=== PATIENT | female | born 1935 | race Native Hawaiian/Other Pacific Islander ===

== ENCOUNTER 2018-03-05 17:19 | Inpatient (IN) | payer MEDICARE, MEDICAID ==
[2018-03-05] MEDS ORDERED: Sodium Chloride 0.9% 1,000 ML IV ONE ×2 (17:48→19:52)
[2018-03-05 18:35] LABS: BASO % 0.7 % (0.0-2.0); EOS # 0.1 K/uL (0.0-0.7); EOS % 0.9 % (0.0-4.0); LYMPH # 1.5 K/uL (1.0-4.3); LYMPH % 23.2 % (20.0-40.0); MEAN CELL VOLUME 76.4 fL (81.0-99.0); MEAN CORPUSCULAR HEMOGLOBIN 24.3 pg (27.0-31.0); MEAN CORPUSCULAR HGB CONC 31.9 g/dL (33.0-37.0); MEAN PLATELET VOLUME 9.4 fL (7.2-11.7); MONO # 0.6 K/uL (0.0-0.8); MONO % 8.9 % (0.0-10.0); NEUT # 4.3 K/uL (1.8-7.0); NEUT % 66.3 % (50.0-75.0); NRBC % 0.2 % (0.0-2.0); RBC 5.75 Mil/uL (3.80-5.20); RED CELL DISTRIBUTION WIDTH 20.2 % (11.5-14.5); WHITE BLOOD COUNT 6.5 K/uL (4.8-10.8)
--- NOTE | 2018-03-05 18:44 | C.PDOC ---
History Of Present Illness 82-year-old female, presents to the emergency department, sent from half-way with complaints of questionable AMS. Patient is usually non-verbal, and non -ambulatory. As per half-way transfer papers, pt stopped eating yesterday. All other Hx limited due to clinical condition. Time Seen by Provider: 03/05/18 17:39 Chief Complaint (Nursing): Altered Mental Status History/Exam Limitations: Other (half-way papers) Past Medical History Reviewed: Historical Data, Nursing Documentation, Vital Signs Vital Signs: Last Vital Signs Temp 97.5 F L 03/05/18 17:25 Pulse 86 03/05/18 17:25 Resp 20 03/05/18 17:25 BP 115/74 03/05/18 17:25 Pulse Ox 100 03/05/18 18:45 - Medical History PMH: Dementia, HTN, Hyperlipidemia, Seizures Family History: States: No Known Family Hx - Social History Hx Alcohol Use: No Hx Substance Use: No Review Of Systems Review Of Systems: ROS cannot be obtained secondary to pt's inabilty to answer questions. Physical Exam - Physical Exam Appears: Non-toxic, No Acute Distress, Other (eyes open, not responding to command) Skin: Warm, Dry, No Rash Head: Atraumatic Eye(s): bilateral: Normal Inspection Nose: Normal Oral Mucosa: Moist Lips: Normal Appearing Cardiovascular: Rhythm Regular, No Murmur Respiratory: Normal Breath Sounds, No Accessory Muscle Use Gastrointestinal/Abdominal: Bowel Sounds, Soft, No Tenderness, No Distention, No Guarding Extremity: No Pedal Edema, No Swelling Extremity: Bilateral: Atraumatic Neurological/Psych: No Response To Commands ED Course And Treatment - Laboratory Results Result Diagrams: 03/05/18 18:30 03/05/18 18:30 Lab Interpretation: Abnormal (Na 154, Cl 112, BUN 35, Urine WBC 106 with many bacteria) O2 Sat by Pulse Oximetry: 100 - Radiology CXR: Interpreted by Me, Viewed By Me (LLL atelectasis. No infiltrates) Progress Note: Patient was treated with IV Rocephin and saline in the ED. - Physician Consult Information Time Consulting Physician Contacted: 20:22 Physician Contacted: Tyson Chavez Outcome Of Conversation: Patient to be admitted for rehydration and IV antibiotics. Disposition - Disposition Disposition: HOSPITALIZED Disposition Time: 20:23 Condition: FAIR - POA Present On Arrival: None - Clinical Impression Clinical Impression: UTI (urinary tract infection), Dehydration - Scribe Statement The provider has reviewed the documentation as recorded by the Scribe (Nigel Hess) All medical record entries made by the Scribe were at my direction and personally dictated by me. I have reviewed the chart and agree that the record accurately reflects my personal performance of the history, physical exam, medical decision making, and the department course for this patient. I have also personally directed, reviewed, and agree with the discharge instructions and disposition.
[2018-03-05 19:17] LABS: URINE BACTERIA MANY (<OCC); URINE BILIRUBIN 1+ (NEGATIVE); URINE BLOOD 1+ (NEGATIVE); URINE CLARITY Turbid (Clear); URINE COLOR Amber (YELLOW); URINE GLUCOSE (UA) NORMAL (Normal); URINE LEUKOCYTE ESTERASE 2+ Leu/uL (Negative); URINE PROTEIN 2+ mg/dL (NEGATIVE); WBC CLUMPS FEW /hpf
[2018-03-05] MEDS ORDERED: cefTRIAXone IV 1 gm in Dextros 50 ML IVPB ONE (19:36)
[2018-03-05 19:40] LABS: GFR NON-AFRICAN AMERICAN 53
[2018-03-05 19:41] LABS: CALCIUM 9.8 mg/dl (8.6-10.4)
[2018-03-05 19:42] LABS: ALB/GLOB RATIO 0.8 (1.0-2.1); ALBUMIN 3.1 g/dL (3.5-5.0); ALT/SGPT 12 U/L (9-52); AST/SGOT 47 U/L (14-36); BLOOD UREA NITROGEN 35 mg/dL (7-17)
--- NOTE | 2018-03-05 23:06 | CP.PCM.HP ---
History of Present Illness - History of Present Illness History of Present Illness: Chief complaint: Altered mental status HPI: 82-year-old female longterm resident nonverbal. Patient has a history of hypertension, dementia, seizure disorder and hyperlipidemia. Patient was sent from the longterm because of the altered mental status. Patient was not eating well, for almost 3 weeks poor intake noted. Patient was having increasing losing weight. Mild getting more lethargic. I spoke to the attending, at the time he was complaining that because of the poor intake low calorie intake patient is getting more weak, and also losing significant weight and body mass. In the emergency room patient was not answering questions, she was much more lethargic and a poorly responding. Past medical history hypertension the Saturday hyperlipidemia seizure disorder Allergy unknown Personal history noncontributory No mention of smoking noted Family history not not obtainable Review of system: Patient is somewhat lethargic and poorly responding. Vital signs stable. Significant muscle muscle wasting noted On examination: Vital signs temperature 97.3 pulse 86 blood pressure 115/74 saturation 100% chest good air entry regular heart sound nontender abdomen. Patient is having contracted upper and lower eczematous. No sacral decubiti noted. Patient is responding only deep stability. Labs reviewed Elevated sodium level noted, elevated blood urea nitrogen noted Assessment and recognition: 82-year-old female with a history of advanced dementia, contracted, and also poor intake. Now admitted with acute altered mental status, suggested likely secondary to poor intake, poor nourishment. Severe dehydration, with prerenal acidemia. Patient also having significant the protein and small nourishment because of the poor intake. Will continue the current treatment pain GI evaluation for possible PEG tube, IV fluid and will follow the patient. Respect to the family regarding the further management Present on Admission - Present on Admission Any Indicators Present on Admission: No History of DVT/PE: No History of Uncontrolled Diabetes: No Urinary Catheter: No Decubitus Ulcer Present: No Past Patient History - Past Social History Smoking Status: Never Smoked - CARDIAC Hx Hypertension: Yes - NEUROLOGICAL Hx Dementia: Yes Hx Seizures: Yes - HEENT Hx Glaucoma: Yes - MUSCULOSKELETAL/RHEUMATOLOGICAL Hx Falls: Yes Hx Unsteady Gait: Yes (diff walking) - PSYCHIATRIC Hx Substance Use: No Meds Allergies/Adverse Reactions: Allergies Allergy/AdvReac Type Severity Reaction Status Date / Time No Known Allergies Allergy Unverified 03/05/18 17:40 Results - Vital Signs Recent Vital Signs: Last Vital Signs Temp 97.8 F 03/05/18 22:24 Pulse 89 03/05/18 22:24 Resp 18 03/05/18 22:24 BP 131/73 03/05/18 22:24 Pulse Ox 99 03/05/18 22:24 - Labs Result Diagrams: 03/09/18 08:29 03/09/18 08:29 Labs: Laboratory Results - last 24 hr 03/05/18 03/05/18 03/05/18 18:30 18:30 18:30 WBC 6.5 RBC 5.75 H Hgb 14.0 Hct 43.9 MCV 76.4 L MCH 24.3 L MCHC 31.9 L RDW 20.2 H Plt Count 247 MPV 9.4 Neut % (Auto) 66.3 Lymph % (Auto) 23.2 [place] % (Auto) 8.9 Eos % (Auto) 0.9 Baso % (Auto) 0.7 Neut # (Auto) 4.3 Lymph # (Auto) 1.5 [place] # (Auto) 0.6 Eos # (Auto) 0.1 Baso # (Auto) 0.0 Sodium 154 H Potassium 4.0 Chloride 112 H Carbon Dioxide 23 Anion Gap 25 H BUN 35 H Creatinine 1.0 Est GFR ( Amer) > 60 Est GFR (Non-Af Amer) 53 Random Glucose 140 H Calcium 9.8 Total Bilirubin 0.9 AST 47 H ALT 12 Alkaline Phosphatase 87 Total Protein 7.2 Albumin 3.1 L Globulin 4.0 H Albumin/Globulin Ratio 0.8 L Urine Color Jacqueline Urine Clarity Turbid Urine pH 5.0 Ur Specific [place] 1.024 Urine Protein 2+ H Urine Glucose (UA) Normal Urine Ketones Trace Urine Blood 1+ H Urine Nitrate Negative Urine Bilirubin 1+ H Urine Urobilinogen 2.0 H Ur Leukocyte Esterase 2+ H Urine WBC (Auto) 106 H Urine RBC (Auto) 10 H Urine WBC Clumps (Auto) Few H Urine Bacteria Many H
[2018-03-05] MEDS: Dextrose 5%/0.45% NS 1,000 ML IV SCH (23:10)
[2018-03-06 08:58] LABS: BASO # 0.1 K/uL (0.0-0.2); BASO % 0.9 % (0.0-2.0); EOS # 0.3 K/uL (0.0-0.7); EOS % 3.3 % (0.0-4.0); HEMOGLOBIN 12.8 g/dL (11.0-16.0); LYMPH # 1.8 K/uL (1.0-4.3); MEAN CELL VOLUME 76.7 fL (81.0-99.0); MEAN CORPUSCULAR HEMOGLOBIN 24.8 pg (27.0-31.0); MEAN CORPUSCULAR HGB CONC 32.3 g/dL (33.0-37.0); MONO # 0.8 K/uL (0.0-0.8); NEUT # 4.8 K/uL (1.8-7.0); NEUT % 62.8 % (50.0-75.0); NRBC % 0.1 % (0.0-2.0); RBC 5.15 Mil/uL (3.80-5.20); RED CELL DISTRIBUTION WIDTH 20.4 % (11.5-14.5); WHITE BLOOD COUNT 7.6 K/uL (4.8-10.8)
[2018-03-06 09:16] LABS: ALB/GLOB RATIO 0.7 (1.0-2.1); ALBUMIN 2.6 g/dL (3.5-5.0); ALT/SGPT 21 U/L (9-52); AST/SGOT 31 U/L (14-36); BLOOD UREA NITROGEN 32 mg/dL (7-17); GFR NON-AFRICAN AMERICAN > 60
[2018-03-06] MEDS ORDERED: cefTRIAXone IV 1 gm in Dextros 1 GM in Dextrose 5% In Water 50 ML IVPB SCH (10:00)
--- NOTE | 2018-03-06 10:14 | RAD ---
Chest x-ray single frontal view History: Altered mental status. Comparison: None available. Findings: Biapical pleural thickening with upper lobe granulomatous changes. Scattered nodularity in the lung faith. Hyperinflation suggestive for COPD and or emphysematous changes. Left basilar atelectasis. Calcification at the aortic knob. Tortuous aorta. Degenerative in the spine and shoulders. Impression: Biapical pleural thickening with upper lobe granulomatous changes. Scattered nodularity in the lung faith. Hyperinflation suggestive for COPD and or emphysematous changes. Left basilar atelectasis. Calcification at the aortic knob. Tortuous aorta.
--- NOTE | 2018-03-06 12:08 | CP.PCM.CON ---
History of Present Illness - History of Present Illness History of Present Illness: Asked to see pt for poor p.o. intake, dehydration. PMH- HTN Reportedly has poor oral intake x 3 weeks at [place]. Review of Systems - Constitutional Constitutional: Anorexia, Fatigue, Malaise, Weight Loss, Weakness - EENT Eyes: absent: Photophobia Nose/Mouth/Throat: Dysphagia - Cardiovascular Cardiovascular: absent: Chest Pain, Palpitations - Respiratory Respiratory: absent: Cough, Hemoptysis - Gastrointestinal Gastrointestinal: Constipation, Dysphagia. absent: Abdominal Pain, Diarrhea, Hematemesis, Hematochezia, Loose Stools, Melena, Vomiting - Genitourinary Genitourinary: absent: Hematuria - Musculoskeletal Musculoskeletal: Muscle Cramps, Myalgias - Integumentary Integumentary: absent: Pruritus, Jaundice - Neurological Neurological: Confusion, Weakness. absent: Convulsions - Psychiatric Psychiatric: Confusion Past Patient History - Past Medical History & Family History Past Medical History?: Yes - Past Social History Smoking Status: Never Smoked - CARDIAC Hx Cardiac Disorders: Yes Hx Hypertension: Yes - PULMONARY Hx Respiratory Disorders: Yes - NEUROLOGICAL Hx Neurological Disorder: Yes Hx Dementia: Yes Hx Seizures: Yes - HEENT Hx HEENT Problems: Yes Hx Glaucoma: Yes - RENAL Hx Chronic Kidney Disease: No - ENDOCRINE/METABOLIC Hx Endocrine Disorders: No - HEMATOLOGICAL/ONCOLOGICAL Hx Blood Disorders: No - INTEGUMENTARY Hx Dermatological Problems: No - MUSCULOSKELETAL/RHEUMATOLOGICAL Hx Musculoskeletal Disorders: Yes Hx Falls: Yes Hx Unsteady Gait: Yes (diff walking) - GASTROINTESTINAL Hx Gastrointestinal Disorders: No - GENITOURINARY/GYNECOLOGICAL Hx Genitourinary Disorders: No - PSYCHIATRIC Hx Psychophysiologic Disorder: No Hx Substance Use: No - SURGICAL HISTORY Hx Surgeries: No - ANESTHESIA Hx Anesthesia: No Meds Allergies/Adverse Reactions: Allergies Allergy/AdvReac Type Severity Reaction Status Date / Time No Known Allergies Allergy Unverified 03/05/18 17:40 - Medications Medications: Current Medications Famotidine (Pepcid) 20 mg IVP DAILY [facility] Last Admin: 03/06/18 11:19 Dose: 20 mg Heparin Sodium (Porcine) (Heparin) 5,000 units SC Q8 [facility] Last Admin: 03/06/18 05:45 Dose: 5,000 units Dextrose/Sodium Chloride (Dextrose 5%/0.45% Ns 1000 Ml) 1,000 mls @ 75 mls/hr IV .[id number] [facility] Last Admin: 03/05/18 23:10 Dose: 75 mls/hr Ceftriaxone Sodium 1 gm/ (Dextrose) 100 mls @ 50 mls/30 min IVPB DAILY [facility] PRN Reason: Protocol Last Admin: 03/06/18 11:01 Dose: Not Given Potassium Chloride (Potassium Chloride 20 Meq/100 Ml) 20 meq in 100 mls @ 50 mls/hr IVPB Q2 [facility] Stop: 03/06/18 13:59 Last Admin: 03/06/18 10:58 Dose: 50 mls/hr Pneumococcal Polyvalent Vaccine (Pneumovax 23 Vaccine) 0.5 ml IM .ONCE ONE Stop: 03/07/18 10:01 Physical Exam - Constitutional Appears: Non-toxic, Confused, Cachectic - Respiratory Exam Respiratory Exam: Clear to Auscultation Bilateral - Cardiovascular Exam Cardiovascular Exam: RRR - GI/Abdominal Exam GI & Abdominal Exam: Normal Bowel Sounds, Soft. absent: Guarding, Mass, Tenderness - Extremities Exam Extremities exam: Negative for: calf tenderness - Neurological Exam Neurological exam: Alert, Oriented x3 - Psychiatric Exam Psychiatric exam: Flat Affect - Skin Skin Exam: Dry Results - Vital Signs Recent Vital Signs: Last Vital Signs Temp 98.5 F 03/06/18 07:41 Pulse 86 03/06/18 07:41 Resp 20 03/06/18 07:41 BP 103/60 03/06/18 07:41 Pulse Ox 97 03/06/18 07:41 - Labs Result Diagrams: 03/06/18 08:41 03/06/18 08:41 Labs: Laboratory Results - last 24 hr 03/05/18 03/05/18 03/05/18 18:30 18:30 18:30 WBC 6.5 RBC 5.75 H Hgb 14.0 Hct 43.9 MCV 76.4 L MCH 24.3 L MCHC 31.9 L RDW 20.2 H Plt Count 247 MPV 9.4 Neut % (Auto) 66.3 Lymph % (Auto) 23.2 [place] % (Auto) 8.9 Eos % (Auto) 0.9 Baso % (Auto) 0.7 Neut # (Auto) 4.3 Lymph # (Auto) 1.5 [place] # (Auto) 0.6 Eos # (Auto) 0.1 Baso # (Auto) 0.0 APTT Sodium 154 H Potassium 4.0 Chloride 112 H Carbon Dioxide 23 Anion Gap 25 H BUN 35 H Creatinine 1.0 Est GFR ( Amer) > 60 Est GFR (Non-Af Amer) 53 Random Glucose 140 H Calcium 9.8 Phosphorus Magnesium Total Bilirubin 0.9 AST 47 H ALT 12 Alkaline Phosphatase 87 Total Protein 7.2 Albumin 3.1 L Globulin 4.0 H Albumin/Globulin Ratio 0.8 L Urine Color Jacqueline Urine Clarity Turbid Urine pH 5.0 Ur Specific [place] 1.024 Urine Protein 2+ H Urine Glucose (UA) Normal Urine Ketones Trace Urine Blood 1+ H Urine Nitrate Negative Urine Bilirubin 1+ H Urine Urobilinogen 2.0 H Ur Leukocyte Esterase 2+ H Urine WBC (Auto) 106 H Urine RBC (Auto) 10 H Urine WBC Clumps (Auto) Few H Urine Bacteria Many H 03/06/18 03/06/18 03/06/18 08:41 08:41 08:41 WBC 7.6 RBC 5.15 Hgb 12.8 Hct 39.6 MCV 76.7 L MCH 24.8 L MCHC 32.3 L RDW 20.4 H Plt Count 211 MPV 10.0 Neut % (Auto) 62.8 Lymph % (Auto) 23.0 [place] % (Auto) 10.0 Eos % (Auto) 3.3 Baso % (Auto) 0.9 Neut # (Auto) 4.8 Lymph # (Auto) 1.8 [place] # (Auto) 0.8 Eos # (Auto) 0.3 Baso # (Auto) 0.1 APTT 35 H Sodium 154 H Potassium 3.1 L Chloride 114 H Carbon Dioxide 25 Anion Gap 17 BUN 32 H Creatinine 0.8 Est GFR ( Amer) > 60 Est GFR (Non-Af Amer) > 60 Random Glucose 187 H Calcium 9.0 Phosphorus 2.9 Magnesium 1.7 Total Bilirubin 0.5 AST 31 ALT 21 Alkaline Phosphatase 73 Total Protein 6.1 L Albumin 2.6 L Globulin 3.5 Albumin/Globulin Ratio 0.7 L Urine Color Urine Clarity Urine pH Ur Specific [place] Urine Protein Urine Glucose (UA) Urine Ketones Urine Blood Urine Nitrate Urine Bilirubin Urine Urobilinogen Ur Leukocyte Esterase Urine WBC (Auto) Urine RBC (Auto) Urine WBC Clumps (Auto) Urine Bacteria Assessment & Plan (1) Dysphagia Assessment and Plan: May be poor oral intake due to UTI and infection. Rec: sw[place]low speech eval She if appetite improves after UTi treated. Status: Acute (2) HTN (hypertension) Status: Acute (3) Hypernatremia Status: Acute (4) Hypokalemia Status: Acute (5) Dehydration Status: Acute (6) UTI (urinary tract infection) Status: Acute
[2018-03-06] MEDS: Dextrose 5%/0.45% NS 1,000 ML IV SCH (12:59)
[2018-03-07] MEDS: Dextrose 5%/0.45% NS 1,000 ML IV SCH ×3 (05:27→15:15)
[2018-03-07] MEDS ORDERED: Pneumococcal 23-Valent Vaccine IM ONE (10:00)
--- NOTE | 2018-03-07 11:15 | CP.PCM.PN ---
Subjective - Date & Time of Evaluation Date of Evaluation: 03/07/18 Time of Evaluation: 11:12 - Subjective Subjective: F/U poor oral intake Swallow eval appreciated. At risk of aspiration Acute altered PO intake, possibly due to UTI Recommend continued follow up by speech therapy to monitor swallowing ability as UTI is being treated and patient is being hydrated. Objective - Vital Signs/Intake and Output Vital Signs (last 24 hours): Temp Pulse Resp BP Pulse Ox 98.2 F 86 20 111/63 98 03/07/18 07:44 03/07/18 07:44 03/07/18 07:44 03/07/18 07:44 03/07/18 07:44 Intake and Output: 03/07/18 03/07/18 06:59 18:59 Intake Total 625 Balance 625 - Medications Medications: Current Medications Famotidine (Pepcid) 20 mg IVP DAILY [facility] Last Admin: 03/06/18 11:19 Dose: 20 mg Heparin Sodium (Porcine) (Heparin) 5,000 units SC Q8 [facility] Last Admin: 03/07/18 05:26 Dose: 5,000 units Dextrose/Sodium Chloride (Dextrose 5%/0.45% Ns 1000 Ml) 1,000 mls @ 75 mls/hr IV .[id number] [facility] Last Admin: 03/07/18 05:28 Dose: Not Given Ceftriaxone Sodium 1 gm/ (Sodium Chloride) 100 mls @ 50 mls/30 min IVPB Q24H [facility] PRN Reason: Protocol Last Admin: 03/06/18 19:35 Dose: 50 mls/30 min - Labs Labs: 03/06/18 08:41 03/06/18 08:41 APTT 35 SECONDS (21-34) H 03/06/18 08:41 - Constitutional Appears: Chronically Ill - Head Exam Additional comments: bitemporal wasting - Neck Exam Neck Exam: Normal Inspection - Respiratory Exam Respiratory Exam: NORMAL BREATHING PATTERN - Cardiovascular Exam Cardiovascular Exam: REGULAR RHYTHM - GI/Abdominal Exam GI & Abdominal Exam: Soft. absent: Tenderness - Neurological Exam Additional comments: confused, non verbal - Psychiatric Exam Psychiatric exam: Flat Affect Assessment and Plan (1) Dehydration Assessment & Plan: due to poor intake. Monitor for improvement. Swallow eval follow up. May need NG feed or PEG Status: Acute (2) UTI (urinary tract infection) Status: Acute
[2018-03-07 11:45] LABS: BASO % 0.6 % (0.0-2.0); EOS # 0.2 K/uL (0.0-0.7); EOS % 3.7 % (0.0-4.0); HEMOGLOBIN 11.8 g/dL (11.0-16.0); LYMPH # 1.9 K/uL (1.0-4.3); MEAN CELL VOLUME 75.9 fL (81.0-99.0); MEAN CORPUSCULAR HGB CONC 32.9 g/dL (33.0-37.0); MEAN PLATELET VOLUME 10.1 fL (7.2-11.7); MONO # 0.8 K/uL (0.0-0.8); MONO % 12.6 % (0.0-10.0); NEUT # 3.1 K/uL (1.8-7.0); NEUT % 51.1 % (50.0-75.0); NRBC % 0.4 % (0.0-2.0); RBC 4.72 Mil/uL (3.80-5.20); RED CELL DISTRIBUTION WIDTH 19.9 % (11.5-14.5)
[2018-03-07 12:11] LABS: BLOOD UREA NITROGEN 23 mg/dL (7-17); CALCIUM 8.7 mg/dl (8.6-10.4); GFR NON-AFRICAN AMERICAN > 60
[2018-03-08] MEDS: Dextrose 5%/0.45% NS 1,000 ML IV SCH (05:36)
[2018-03-08 08:07] LABS: BLOOD UREA NITROGEN 18 mg/dL (7-17); CALCIUM 8.2 mg/dl (8.6-10.4); GFR NON-AFRICAN AMERICAN > 60
--- NOTE | 2018-03-08 08:57 | CP.PCM.PN ---
Subjective - Date & Time of Evaluation Date of Evaluation: 03/08/18 Time of Evaluation: 08:57 - Subjective Subjective: Patient had a low blood pressure this morning. Now the blood pressure slightly improved. No chest pain no shortness of breath noted. She is not eating by mouth. On IV fluid, Will continue the current treatment, will discuss with the cigar packer and picker for the feeding tube Objective - Vital Signs/Intake and Output Vital Signs (last 24 hours): Temp Pulse Resp BP Pulse Ox 98.3 F 77 20 109/68 98 03/08/18 00:11 03/08/18 00:11 03/08/18 00:11 03/08/18 00:11 03/08/18 00:11 Intake and Output: 03/08/18 03/08/18 06:59 18:59 Intake Total 1160 Balance 1160 - Medications Medications: Current Medications Famotidine (Pepcid) 20 mg IVP DAILY [facility] Last Admin: 03/07/18 11:00 Dose: 20 mg Heparin Sodium (Porcine) (Heparin) 5,000 units SC Q8 [facility] Last Admin: 03/08/18 05:35 Dose: 5,000 units Dextrose/Sodium Chloride (Dextrose 5%/0.45% Ns 1000 Ml) 1,000 mls @ 75 mls/hr IV .[id number] [facility] Last Admin: 03/08/18 05:36 Dose: 75 mls/hr Ceftriaxone Sodium 1 gm/ (Sodium Chloride) 100 mls @ 50 mls/30 min IVPB Q24H [facility] PRN Reason: Protocol Last Admin: 03/07/18 20:00 Dose: 50 mls/30 min - Labs Labs: 03/07/18 11:25 03/08/18 07:29 APTT 35 SECONDS (21-34) H 03/06/18 08:41
--- NOTE | 2018-03-08 09:45 | CP.PCM.PN ---
Subjective - Date & Time of Evaluation Date of Evaluation: 03/08/18 Time of Evaluation: 09:43 - Subjective Subjective: Remians NPO Confused/lethargic Recommend NG feeds and swallow eval Objective - Vital Signs/Intake and Output Vital Signs (last 24 hours): Temp Pulse Resp BP Pulse Ox 98.3 F 77 20 109/68 98 03/08/18 00:11 03/08/18 00:11 03/08/18 00:11 03/08/18 00:11 03/08/18 00:11 Intake and Output: 03/08/18 03/08/18 06:59 18:59 Intake Total 1160 Balance 1160 - Medications Medications: Current Medications Famotidine (Pepcid) 20 mg IVP DAILY [facility] Last Admin: 03/07/18 11:00 Dose: 20 mg Heparin Sodium (Porcine) (Heparin) 5,000 units SC Q8 [facility] Last Admin: 03/08/18 05:35 Dose: 5,000 units Dextrose/Sodium Chloride (Dextrose 5%/0.45% Ns 1000 Ml) 1,000 mls @ 75 mls/hr IV .[id number] [facility] Last Admin: 03/08/18 05:36 Dose: 75 mls/hr Ceftriaxone Sodium 1 gm/ (Sodium Chloride) 100 mls @ 50 mls/30 min IVPB Q24H [facility] PRN Reason: Protocol Last Admin: 03/07/18 20:00 Dose: 50 mls/30 min - Labs Labs: 03/07/18 11:25 03/08/18 07:29 APTT 35 SECONDS (21-34) H 03/06/18 08:41 - Constitutional Appears: Cachectic, Chronically Ill - Respiratory Exam Respiratory Exam: NORMAL BREATHING PATTERN - Cardiovascular Exam Cardiovascular Exam: REGULAR RHYTHM - GI/Abdominal Exam GI & Abdominal Exam: Soft. absent: Tenderness Assessment and Plan (1) Dehydration Assessment & Plan: Recommend NG feeds, swallow eval follow up Consider palliative care consult to assist indecision on appropriateness of PEG Status: Acute (2) UTI (urinary tract infection) Status: Acute
[2018-03-08] MEDS ORDERED: Dextrose 5%/0.9% NS 1,000 ML IV ONE ×2 (17:31→17:32)
[2018-03-08] MEDS: Magnesium Sulfate 1 gm in D5W 1 GM/100 ML BAG IVPB SCH ×2 (17:58→18:52)
[2018-03-09 08:46] LABS: BASO % 0.6 % (0.0-2.0); EOS # 0.3 K/uL (0.0-0.7); EOS % 4.5 % (0.0-4.0); HEMOGLOBIN 13.3 g/dL (11.0-16.0); LYMPH # 1.6 K/uL (1.0-4.3); LYMPH % 27.6 % (20.0-40.0); MEAN CELL VOLUME 76.6 fL (81.0-99.0); MEAN CORPUSCULAR HEMOGLOBIN 24.7 pg (27.0-31.0); MEAN CORPUSCULAR HGB CONC 32.2 g/dL (33.0-37.0); MEAN PLATELET VOLUME 9.8 fL (7.2-11.7); MONO # 0.7 K/uL (0.0-0.8); MONO % 11.6 % (0.0-10.0); NEUT # 3.2 K/uL (1.8-7.0); NEUT % 55.7 % (50.0-75.0); NRBC % 0.4 % (0.0-2.0); RBC 5.38 Mil/uL (3.80-5.20); RED CELL DISTRIBUTION WIDTH 20.5 % (11.5-14.5); WHITE BLOOD COUNT 5.7 K/uL (4.8-10.8)
[2018-03-09 08:56] LABS: ALB/GLOB RATIO 0.7 (1.0-2.1); ALBUMIN 2.3 g/dL (3.5-5.0); ALT/SGPT 25 U/L (9-52); AST/SGOT 44 U/L (14-36); BLOOD UREA NITROGEN 11 mg/dL (7-17); CALCIUM 8.3 mg/dl (8.6-10.4); GFR NON-AFRICAN AMERICAN > 60
--- NOTE | 2018-03-09 16:34 | CP.PCM.PN ---
Subjective - Date & Time of Evaluation Date of Evaluation: 03/09/18 Time of Evaluation: 16:32 - Subjective Subjective: f/u dysphagia Clinically unchanged Await speech/swallow follow up- hopefully will be able to start puree diet. Presently pt remains NPO. Objective - Vital Signs/Intake and Output Vital Signs (last 24 hours): Temp Pulse Resp BP Pulse Ox 97.8 F 90 20 111/71 99 03/09/18 15:00 03/09/18 15:00 03/09/18 15:00 03/09/18 15:00 03/09/18 15:00 Intake and Output: 03/09/18 03/09/18 06:59 18:59 Intake Total 1650 120 Output Total 0 Balance 1650 120 - Medications Medications: Current Medications Famotidine (Pepcid) 20 mg IVP DAILY [facility] Last Admin: 03/09/18 09:23 Dose: 20 mg Heparin Sodium (Porcine) (Heparin) 5,000 units SC Q8 [facility] Last Admin: 03/09/18 13:51 Dose: 5,000 units Ceftriaxone Sodium 1 gm/ (Sodium Chloride) 100 mls @ 50 mls/30 min IVPB Q24H [facility] PRN Reason: Protocol Last Admin: 03/08/18 19:20 Dose: 50 mls/30 min - Labs Labs: 03/09/18 08:29 03/09/18 08:29 APTT 35 SECONDS (21-34) H 03/06/18 08:41 - Constitutional Appears: Chronically Ill - Head Exam Head Exam: NORMOCEPHALIC - Respiratory Exam Respiratory Exam: NORMAL BREATHING PATTERN - Cardiovascular Exam Cardiovascular Exam: REGULAR RHYTHM Assessment and Plan (1) Dehydration Assessment & Plan: f/u swallow eval to determine further course of action regarding diet vs. feeding tube Status: Acute (2) UTI (urinary tract infection) Status: Acute
--- NOTE | 2018-03-09 21:17 | CP.PCM.PN ---
Subjective - Date & Time of Evaluation Date of Evaluation: 03/06/18 Time of Evaluation: 21:17 - Subjective Subjective: Patient is having difficult time in eating. . A swallow study. Seen by GI. Will continue the IV fluid. Discussed with the family regarding the further management. Possibility of PEG tube Objective - Vital Signs/Intake and Output Vital Signs (last 24 hours): Temp Pulse Resp BP Pulse Ox 97.8 F 90 20 111/71 99 03/09/18 15:00 03/09/18 15:00 03/09/18 15:00 03/09/18 15:00 03/09/18 15:00 Intake and Output: 03/09/18 03/10/18 18:59 06:59 Intake Total 120 Balance 120 - Medications Medications: Current Medications Famotidine (Pepcid) 20 mg IVP DAILY [facility] Last Admin: 03/09/18 09:23 Dose: 20 mg Heparin Sodium (Porcine) (Heparin) 5,000 units SC Q8 [facility] Last Admin: 03/09/18 21:06 Dose: 5,000 units - Labs Labs: 03/09/18 08:29 03/09/18 08:29 APTT 35 SECONDS (21-34) H 03/06/18 08:41
--- NOTE | 2018-03-09 21:18 | CP.PCM.PN ---
Subjective - Date & Time of Evaluation Date of Evaluation: 03/07/18 Time of Evaluation: 21:17 - Subjective Subjective: Patient had an episode of low blood pressure. Currently on IV fluid only. Seen by GI. Pending discussed with the family regarding the PEG tube. Will follow-up the patient Objective - Vital Signs/Intake and Output Vital Signs (last 24 hours): Temp Pulse Resp BP Pulse Ox 97.8 F 90 20 111/71 99 03/09/18 15:00 03/09/18 15:00 03/09/18 15:00 03/09/18 15:00 03/09/18 15:00 Intake and Output: 03/09/18 03/10/18 18:59 06:59 Intake Total 120 Balance 120 - Medications Medications: Current Medications Famotidine (Pepcid) 20 mg IVP DAILY [facility] Last Admin: 03/09/18 09:23 Dose: 20 mg Heparin Sodium (Porcine) (Heparin) 5,000 units SC Q8 [facility] Last Admin: 03/09/18 21:06 Dose: 5,000 units - Labs Labs: 03/09/18 08:29 03/09/18 08:29 APTT 35 SECONDS (21-34) H 03/06/18 08:41
--- NOTE | 2018-03-09 21:20 | CP.PCM.PN ---
Subjective - Date & Time of Evaluation Date of Evaluation: 03/09/18 Time of Evaluation: 21:19 - Subjective Subjective: Clinical examination is unremarkable. Patient is still not responding well. With the distal a patient is responding. Not able to open the mouth, unable to feed. Will do the speech and swallowing again tomorrow. May need a PEG tube, will discuss with family Objective - Vital Signs/Intake and Output Vital Signs (last 24 hours): Temp Pulse Resp BP Pulse Ox 97.8 F 90 20 111/71 99 03/09/18 15:00 03/09/18 15:00 03/09/18 15:00 03/09/18 15:00 03/09/18 15:00 Intake and Output: 03/09/18 03/10/18 18:59 06:59 Intake Total 120 Balance 120 - Medications Medications: Current Medications Famotidine (Pepcid) 20 mg IVP DAILY [facility] Last Admin: 03/09/18 09:23 Dose: 20 mg Heparin Sodium (Porcine) (Heparin) 5,000 units SC Q8 [facility] Last Admin: 03/09/18 21:06 Dose: 5,000 units - Labs Labs: 03/09/18 08:29 03/09/18 08:29 APTT 35 SECONDS (21-34) H 03/06/18 08:41
[2018-03-10 14:31] LABS: BLOOD UREA NITROGEN 10 mg/dL (7-17); CALCIUM 7.5 mg/dl (8.6-10.4); GFR NON-AFRICAN AMERICAN > 60
[2018-03-10] MEDS ORDERED: Dextrose 5%/0.9% NS 1,000 ML IV ONE (16:00)
[2018-03-10 17:16] LABS: INR 1.2; PROTHROMBIN TIME 13.5 SECONDS (9.7-12.2)
[2018-03-10] MEDS ORDERED: Phytonadione 10 mg/ml Inj (Adult) SC STA (17:41)
[2018-03-11 09:12] LABS: BLOOD UREA NITROGEN 9 mg/dL (7-17); CALCIUM 8.2 mg/dl (8.6-10.4); GFR NON-AFRICAN AMERICAN > 60
--- NOTE | 2018-03-11 11:23 | CP.PCM.PCO ---
Physician Communication Note - Physician Communication Note Physician Communication Note: Reschedule PEG placement tomorrow, 03/12.Elevated PTT on 03/10. Recheck today
[2018-03-11 14:18] LABS: INR 1.2; PROTHROMBIN TIME 12.9 SECONDS (9.7-12.2)
[2018-03-11] MEDS ORDERED: Dextrose 5%/0.45% NS 1,000 ML IV SCH (16:30)
--- NOTE | 2018-03-11 21:51 | CP.PCM.PN ---
Subjective - Date & Time of Evaluation Date of Evaluation: 03/11/18 Time of Evaluation: 21:51 - Subjective Subjective: Patient peg pending She is feeling okay. More awake. Family at bedside today. Complaining of pain. Tylenol as needed. Tolerating the feeding tomorrow, possibly discharge plan tomorrow Objective - Vital Signs/Intake and Output Vital Signs (last 24 hours): Temp Pulse Resp BP Pulse Ox 97.4 F L 85 20 107/50 L 97 03/11/18 15:40 03/11/18 15:40 03/11/18 15:40 03/11/18 15:40 03/11/18 15:40 - Medications Medications: Current Medications Famotidine (Pepcid) 20 mg IVP DAILY [facility] Last Admin: 03/11/18 09:47 Dose: Not Given Dextrose/Sodium Chloride (Dextrose 5%/0.45% Ns 1000 Ml) 1,000 mls @ 50 mls/hr IV .Q20H [facility] Last Admin: 03/11/18 16:40 Dose: 50 mls/hr - Labs Labs: 03/09/18 08:29 03/11/18 08:39 PT 12.9 SECONDS (9.7-12.2) H 03/11/18 13:52 INR 1.2 03/11/18 13:52 APTT 34 SECONDS (21-34) D 03/11/18 13:52
[2018-03-12 08:07] LABS: INR 1.2; PROTHROMBIN TIME 12.7 SECONDS (9.7-12.2)
[2018-03-12 08:08] LABS: MEAN CELL VOLUME 76.6 fL (81.0-99.0); MEAN CORPUSCULAR HEMOGLOBIN 25.2 pg (27.0-31.0); MEAN CORPUSCULAR HGB CONC 32.9 g/dL (33.0-37.0); MEAN PLATELET VOLUME 10.3 fL (7.2-11.7); RBC 4.31 Mil/uL (3.80-5.20); RED CELL DISTRIBUTION WIDTH 20.6 % (11.5-14.5); WHITE BLOOD COUNT 4.5 K/uL (4.8-10.8)
[2018-03-12 08:11] LABS: HEMOGLOBIN 10.8 g/dL (11.0-16.0)
[2018-03-12 08:19] LABS: ALB/GLOB RATIO 0.6 (1.0-2.1); ALBUMIN 1.8 g/dL (3.5-5.0); ALT/SGPT 37 U/L (9-52); AST/SGOT 54 U/L (14-36); BLOOD UREA NITROGEN 9 mg/dL (7-17); CALCIUM 8.2 mg/dl (8.6-10.4); GFR NON-AFRICAN AMERICAN > 60
[2018-03-12] MEDS: Potassium Chloride 40 MEQ in Dextrose 5%/0.45% NS 1,000 ML IV SCH (10:42)
[2018-03-12 10:49] LABS: EOS # 0.2 K/uL (0.0-0.7); LYMPH # 1.8 K/uL (1.0-4.3); MONO # 0.5 K/uL (0.0-0.8)
[2018-03-12] MEDS ORDERED: Etomidate 20 mg/10ml Inj IV ONE (11:31)
[2018-03-12] MEDS ORDERED: Ciprofloxacin 400mg/200ml D5W 400 MG/200 ML BAG IVPB SCH (13:00)
[2018-03-12] MEDS: Ciprofloxacin 400mg/200ml D5W 400 MG/200 ML BAG IVPB SCH (16:25)
[2018-03-13] MEDS: Ciprofloxacin 400mg/200ml D5W 400 MG/200 ML BAG IVPB SCH ×2 (04:01→16:25)
[2018-03-13 07:14] LABS: HEMOGLOBIN 11.6 g/dL (11.0-16.0); MEAN CELL VOLUME 76.3 fL (81.0-99.0); MEAN CORPUSCULAR HEMOGLOBIN 25.3 pg (27.0-31.0); MEAN CORPUSCULAR HGB CONC 33.2 g/dL (33.0-37.0); MEAN PLATELET VOLUME 9.8 fL (7.2-11.7); RBC 4.56 Mil/uL (3.80-5.20); RED CELL DISTRIBUTION WIDTH 20.2 % (11.5-14.5)
[2018-03-13 07:29] LABS: WHITE BLOOD COUNT 7.4 K/uL (4.8-10.8)
[2018-03-13 07:54] LABS: BLOOD UREA NITROGEN 9 mg/dL (7-17); CALCIUM 8.3 mg/dl (8.6-10.4); GFR NON-AFRICAN AMERICAN > 60
[2018-03-13] MEDS: Potassium Chloride 40 MEQ in Dextrose 5%/0.45% NS 1,000 ML IV SCH (09:01)
[2018-03-13 10:12] LABS: LYMPH # 0.8 K/uL (1.0-4.3); MONO # 0.4 K/uL (0.0-0.8); NEUT # 6.2 K/uL (1.8-7.0)
--- NOTE | 2018-03-13 11:57 | PN ---
DATE: 03/13/2018 LOCATION: 360, bed A. SUBJECTIVE: This is an 82-year-old female post PEG insertion yesterday, tolerating PEG feeding well without reported, so far nausea or vomiting. No reported residual bleeding or . The entire chart is reviewed including, but not limited to most recent lab and radiology study results, current and the previous medication list, current and the previous medical events. Case discussed with the staff at length. Today's lab result showed normal hemoglobin and hematocrit with normal white blood cell with blood glucose level 205, calcium 8.3, albumin reported to be low 1.8 with low total protein. PHYSICAL EXAMINATION: GENERAL: An 82-year-old female. VITAL SIGNS: Afebrile with pulse of 100, respiratory rate 20 to 22, blood pressure 102/60. HEENT: Showed pale, dry oral mucous membrane. Nonicteric sclerae. LUNGS: Few scattered mild crepitation. Decreased air entry at bases. HEART: Positive S1 and S2. ABDOMEN: Soft with slight distention. PEG tube is in place. No evidence of bleeding. No evidence of anterior abdominal wall cellulitis. Wound is clean. Abdominal binder is in place. Bowel sounds are present. No mass or organomegaly. EXTREMITIES: Show slight lower extremity edematous changes. No clubbing or cyanosis. NEUROLOGICAL: No reported new neurological deficits, sensory or motor. IMPRESSION: 1. Failure to thrive. 2. Dysphagia. 3. Malnutrition, hypoalbuminemia. 4. Status post percutaneous endoscopic gastrostomy insertion. SUGGESTION: 1. Agree with your plan. 2. Subsequent increase of feeding process. 3. The patient is to be followed up for GI by Dr. Snider as I was covering for the last two days and the PEG tube was performed as per the request of the admitting MD as well as the family member on Saturday. We will follow up with you only p.r.n. Case to be followed up by Dr. Snider. Derek Chapa MD
--- NOTE | 2018-03-13 13:24 | CP.PCM.PN ---
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 Patient seen today, comfortable , NAD RN reported patient vomited large amount of un digested feeding Labs and vss reviewed a febrile Objective - Vital Signs/Intake and Output Vital Signs (last 24 hours): Temp Pulse Resp BP Pulse Ox 97.4 F L 76 20 99/61 L 97 03/13/18 08:17 03/13/18 08:17 03/13/18 08:17 03/13/18 08:17 03/13/18 08:17 Intake and Output: 03/13/18 03/13/18 06:59 18:59 Intake Total 1250 Balance 1250 - Medications Medications: Current Medications Famotidine (Pepcid) 20 mg IVP DAILY [facility] Last Admin: 03/13/18 11:03 Dose: 20 mg Potassium Chloride 40 meq/ (Dextrose/Sodium Chloride) 1,020 mls @ 50 mls/hr IV .[id number] [facility] Last Admin: 03/13/18 09:01 Dose: 50 mls/hr Ciprofloxacin (Cipro 400mg/200ml Dsw) 400 mg in 200 mls @ 133 mls/hr IVPB Q12H [facility] PRN Reason: Protocol Last Admin: 03/13/18 04:01 Dose: 133 mls/hr - Labs Labs: 03/13/18 06:43 03/13/18 06:43 PT 12.7 SECONDS (9.7-12.2) H 03/12/18 07:23 INR 1.2 03/12/18 07:23 APTT 29 SECONDS (21-34) D 03/12/18 07:23 - Constitutional Appears: Non-toxic, No Acute Distress - Respiratory Exam Respiratory Exam: Clear to Ausculation Bilateral, NORMAL BREATHING PATTERN - Cardiovascular Exam Cardiovascular Exam: +S1, +S2 - GI/Abdominal Exam GI & Abdominal Exam: Soft, Normal Bowel Sounds (p) - Neurological Exam Neurological Exam: Alert, Awake Assessment and Plan - Assessment and Plan (Free Text) Assessment: A/P f82 yr old female admitted from [place] for poor p.o. intake, dehydration. s/p peg tube insertion - 03/12/18 and feeding started at 30 ml/hr at dinner time and rate incr. 40 ml/hr and patient vomited this am undigested feeding D/W Dr. Naranjo recommends to restart feeding if no residual at 6pm at 30 ml/hr 4 hrs on and 4 hrs off check residual and next day incr. rate to 40 ml - 4 hrs on and 4 hrs off , and reglan 5 mg iv for N/V The above plan discussed with Dr. Chavez
--- NOTE | 2018-03-13 13:56 | CP.PCM.PN ---
Subjective - Date & Time of Evaluation Date of Evaluation: 03/13/18 Time of Evaluation: 13:30 - Subjective Subjective: f/u dysphagia s/p PEG No abdom pain, fever, chills, SZ, LOC, LEMOS, CP, SOB, RB, melena Objective - Vital Signs/Intake and Output Vital Signs (last 24 hours): Temp Pulse Resp BP Pulse Ox 97.4 F L 76 20 99/61 L 97 03/13/18 08:17 03/13/18 08:17 03/13/18 08:17 03/13/18 08:17 03/13/18 08:17 Intake and Output: 03/13/18 03/13/18 06:59 18:59 Intake Total 1250 Balance 1250 - Medications Medications: Current Medications Famotidine (Pepcid) 20 mg IVP DAILY [facility] Last Admin: 03/13/18 11:03 Dose: 20 mg Ciprofloxacin (Cipro 400mg/200ml Dsw) 400 mg in 200 mls @ 133 mls/hr IVPB Q12H [facility] PRN Reason: Protocol Last Admin: 03/13/18 04:01 Dose: 133 mls/hr Metoclopramide HCl (Reglan) 5 mg IVP Q8 PRN PRN Reason: Nausea/Vomiting - Labs Labs: 03/13/18 06:43 03/13/18 06:43 PT 12.7 SECONDS (9.7-12.2) H 03/12/18 07:23 INR 1.2 03/12/18 07:23 APTT 29 SECONDS (21-34) D 03/12/18 07:23 - Constitutional Appears: Non-toxic - Respiratory Exam Respiratory Exam: Clear to Ausculation Bilateral - Cardiovascular Exam Cardiovascular Exam: RRR - GI/Abdominal Exam GI & Abdominal Exam: Soft, Normal Bowel Sounds. absent: Tenderness Additional comments: PEG in place - Neurological Exam Neurological Exam: Alert, Awake. absent: Oriented x3 Assessment and Plan (1) Dysphagia Assessment & Plan: s/p PEG Status: Acute (2) HTN (hypertension) Status: Acute (3) Hypernatremia Status: Acute (4) Hypokalemia Assessment & Plan: check lytes Status: Acute (5) Dehydration Assessment & Plan: PEG feeding. Status: Acute (6) UTI (urinary tract infection) Status: Acute
--- NOTE | 2018-03-13 20:25 | CP.PCM.PN ---
Subjective - Date & Time of Evaluation Date of Evaluation: 03/13/18 Time of Evaluation: 20:25 - Subjective Subjective: Patient started on feeding, but the goal of 50 cc/h started, patient started having vomiting. Vital signs stable. The feeding is on hold now. We will monitor the vomiting and abdominal status. We will slowly start the feeding tonight and follow-up. If needed radiological investigation if there is any more further vomiting Objective - Vital Signs/Intake and Output Vital Signs (last 24 hours): Temp Pulse Resp BP Pulse Ox 98.8 F 102 H 20 104/59 L 97 03/13/18 16:00 03/13/18 16:00 03/13/18 16:00 03/13/18 16:00 03/13/18 16:00 Intake and Output: 03/13/18 03/14/18 18:59 06:59 Intake Total 580 Balance 580 - Medications Medications: Current Medications Famotidine (Pepcid) 20 mg PEG DAILY [facility] Ciprofloxacin (Cipro 400mg/200ml Dsw) 400 mg in 200 mls @ 133 mls/hr IVPB Q12H [facility] PRN Reason: Protocol Last Admin: 03/13/18 16:25 Dose: 133 mls/hr Metoclopramide HCl (Reglan) 5 mg IVP Q8 PRN PRN Reason: Nausea/Vomiting - Labs Labs: 03/13/18 06:43 03/13/18 06:43 PT 12.7 SECONDS (9.7-12.2) H 03/12/18 07:23 INR 1.2 03/12/18 07:23 APTT 29 SECONDS (21-34) D 03/12/18 07:23
[2018-03-14] MEDS: Ciprofloxacin 400mg/200ml D5W 400 MG/200 ML BAG IVPB SCH (04:15)
[2018-03-14 08:44] LABS: HEMOGLOBIN 11.1 g/dL (11.0-16.0); MEAN CELL VOLUME 76.6 fL (81.0-99.0); MEAN CORPUSCULAR HEMOGLOBIN 25.6 pg (27.0-31.0); MEAN CORPUSCULAR HGB CONC 33.5 g/dL (33.0-37.0); MEAN PLATELET VOLUME 9.7 fL (7.2-11.7); RBC 4.35 Mil/uL (3.80-5.20); RED CELL DISTRIBUTION WIDTH 19.4 % (11.5-14.5); WHITE BLOOD COUNT 8.9 K/uL (4.8-10.8)
[2018-03-14 09:17] LABS: BLOOD UREA NITROGEN 10 mg/dL (7-17); CALCIUM 8.3 mg/dl (8.6-10.4); GFR NON-AFRICAN AMERICAN > 60
--- NOTE | 2018-03-14 09:19 | RAD ---
Date of service: 03/14/2018 HISTORY: aspiration COMPARISON: 03/05/2018. FINDINGS: LUNGS: The lungs are well inflated and clear. PLEURA: No significant pleural effusion identified, no pneumothorax apparent. CARDIOVASCULAR: Normal. OSSEOUS STRUCTURES: No significant abnormalities. VISUALIZED UPPER ABDOMEN: Normal. OTHER FINDINGS: There is lucency in the right upper quadrant and under the right hemidiaphragm. There is mild gaseous distension of bowel. IMPRESSION: No active pulmonary disease. Lucency in the right upper quadrant may represent free intraperitoneal air likely related to recent PEG tube insertion. Follow-up is advised.
[2018-03-14 09:55] LABS: LYMPH # 1.3 K/uL (1.0-4.3); MONO # 0.8 K/uL (0.0-0.8); NEUT # 6.9 K/uL (1.8-7.0)
--- NOTE | 2018-03-14 10:55 | CP.PCM.PN ---
Subjective - Date & Time of Evaluation Date of Evaluation: 03/10/18 Time of Evaluation: 10:54 - Subjective Subjective: Patient is awaiting for PEG tube placement. She is awake and responding. Family at bedside. We will continue the current treatment. Assessment: 82-year-old female admitted with dysphagia. Poor intake. Malnourishment. Dehydration. for PEG Objective - Vital Signs/Intake and Output Vital Signs (last 24 hours): Temp Pulse Resp BP Pulse Ox 98.4 F 98 H 20 110/72 95 03/14/18 08:54 03/14/18 08:54 03/14/18 08:54 03/14/18 08:54 03/14/18 08:54 Intake and Output: 03/14/18 03/14/18 06:59 18:59 Intake Total 520 Balance 520 - Medications Medications: Current Medications Sodium Chloride (Sodium Chloride 0.9%) 1,000 mls @ 100 mls/hr IV .Q10H [facility] Metoclopramide HCl (Reglan) 5 mg IVP Q6 [facility] Stop: 03/16/18 12:01 Pantoprazole Sodium (Protonix Inj) 40 mg IVP DAILY [facility] Last Admin: 03/14/18 10:32 Dose: 40 mg - Labs Labs: 03/14/18 08:34 03/14/18 08:34 PT 12.7 SECONDS (9.7-12.2) H 03/12/18 07:23 INR 1.2 03/12/18 07:23 APTT 29 SECONDS (21-34) D 03/12/18 07:23
--- NOTE | 2018-03-14 10:56 | CP.PCM.PN ---
Subjective - Date & Time of Evaluation Date of Evaluation: 03/12/18 Time of Evaluation: 10:56 - Subjective Subjective: She is awake and responding. Family at bedside. We will continue the current treatment. Assessment: 82-year-old female admitted with dysphagia. Poor intake. Malnourishment. Dehydration. s/p peg will start the feeding in am Objective - Vital Signs/Intake and Output Vital Signs (last 24 hours): Temp Pulse Resp BP Pulse Ox 98.4 F 98 H 20 110/72 95 03/14/18 08:54 03/14/18 08:54 03/14/18 08:54 03/14/18 08:54 03/14/18 08:54 Intake and Output: 03/14/18 03/14/18 06:59 18:59 Intake Total 520 Balance 520 - Medications Medications: Current Medications Sodium Chloride (Sodium Chloride 0.9%) 1,000 mls @ 100 mls/hr IV .Q10H [facility] Metoclopramide HCl (Reglan) 5 mg IVP Q6 [facility] Stop: 03/16/18 12:01 Pantoprazole Sodium (Protonix Inj) 40 mg IVP DAILY [facility] Last Admin: 03/14/18 10:32 Dose: 40 mg - Labs Labs: 03/14/18 08:34 03/14/18 08:34 PT 12.7 SECONDS (9.7-12.2) H 03/12/18 07:23 INR 1.2 03/12/18 07:23 APTT 29 SECONDS (21-34) D 03/12/18 07:23
--- NOTE | 2018-03-14 10:59 | CP.PCM.PN ---
Subjective - Date & Time of Evaluation Date of Evaluation: 03/14/18 Time of Evaluation: 10:59 - Subjective Subjective: Patient is morning again had some vomiting. Abdominal pain negative Comfortable otherwise. Vital signs stable chest good air entry regular heart sound abdomen nontender PEG noted Because of the vomiting will get a CAT scan of the abdomen. We will start the feeding if it is negative slowly. And a possible discharge plan if she tolerates Objective - Vital Signs/Intake and Output Vital Signs (last 24 hours): Temp Pulse Resp BP Pulse Ox 98.4 F 98 H 20 110/72 95 03/14/18 08:54 03/14/18 08:54 03/14/18 08:54 03/14/18 08:54 03/14/18 08:54 Intake and Output: 03/14/18 03/14/18 06:59 18:59 Intake Total 520 Balance 520 - Medications Medications: Current Medications Sodium Chloride (Sodium Chloride 0.9%) 1,000 mls @ 100 mls/hr IV .Q10H [facility] Metoclopramide HCl (Reglan) 5 mg IVP Q6 [facility] Stop: 03/16/18 12:01 Pantoprazole Sodium (Protonix Inj) 40 mg IVP DAILY [facility] Last Admin: 03/14/18 10:32 Dose: 40 mg - Labs Labs: 03/14/18 08:34 03/14/18 08:34 PT 12.7 SECONDS (9.7-12.2) H 03/12/18 07:23 INR 1.2 03/12/18 07:23 APTT 29 SECONDS (21-34) D 03/12/18 07:23
--- NOTE | 2018-03-14 11:10 | CT ---
Date of service: 03/14/2018 PROCEDURE: CT Abdomen without intravenous contrast HISTORY: s/p peg continueous vomitting COMPARISON: None. TECHNIQUE: Axial images of the abdomen from lung bases to iliac crest without intravenous contrast enhancement. Coronal and sagittal reformats generated. Radiation dose: Total exam DLP = 193.55 mGy-cm. This CT exam was performed using one or more of the following dose reduction techniques: Automated exposure control, adjustment of the mA and/or kV according to patient size, and/or use of iterative reconstruction technique. . FINDINGS: LOWER THORAX: There is small right pleural effusion. Mild cardiomegaly is noted. Small opacities at the lower portion of the lungs noted more prominent in the left lung base. LIVER: Punctate 2 millimeter calcification noted at the liver dome. The assessment is limited without IV contrast administration. GALLBLADDER AND BILE DUCTS: Gallstone is noted without CT evidence of acute cholecystitis. No evidence of intrahepatic or extrahepatic biliary ductal dilatation. PANCREAS: Unremarkable. No gross lesion or ductal dilatation. SPLEEN: Unremarkable. ADRENALS: Unremarkable. No mass. KIDNEYS AND URETERS: Unremarkable. No hydronephrosis. No solid mass. VASCULATURE: Unremarkable. No aortic aneurysm. BOWEL: Status post gastrostomy tube insertion through right anterior upper abdominal wall with the distal tip of the gastrostomy tube in the distal portion of the gastric body. The stomach is mildly distended contains fluid and air-fluid level . No evidence of high-grade small bowel obstruction. APPENDIX: The appendix is not included in this study. PERITONEUM: There is moderate amount of free air in the upper portion of the abdomen mainly anterior to the stomach and liver noted. Findings may be related to recent gastrostomy tube insertion. The possibility of air leak around the gastrostomy tube is not totally excluded. LYMPH NODES: Unremarkable. No enlarged lymph nodes. BONES: No acute fracture. OTHER FINDINGS: None. IMPRESSION: Gallstone without CT evidence of acute cholecystitis. Moderate amount of free air noted in the anterior aspect of the upper abdomen likely related to recent insertion of gastrostomy tube. The possibility of air leak around the gastrostomy tube is not totally excluded. Please correlate clinically and if indicated follow-up exam may be obtained. Mildly distended large bowel may represent mild bowel ileus. No evidence of bowel obstruction. No evidence of nephrolithiasis or hydronephrosis. Small right pleural effusion and mild cardiomegaly.
[2018-03-14] MEDS: Sodium Chloride 0.9% 1,000 ML IV SCH ×2 (11:59→18:23)
--- NOTE | 2018-03-14 21:45 | PN ---
DATE: 03/14/2018 LOCATION: 360, bed A. SUBJECTIVE: This is an 82 years old female post PEG insertion, I was asked by Dr. Snider to follow her up as I performed the PEG before, reported some residual of feeding with vomiting, I changed the feeding rate as well as feeding frequency as supposed to be and Reglan IV was added, but no reported chest pain, palpitation or significant shortness of breath. This case was discussed with staff in the floor at rounds. Today's lab showed normal hemoglobin and normal white blood cells, but hematocrit of 33.3 with low indices, normal platelet count with blood glucose level to 102, low calcium 8.3 with low albumin before 1.8. The patient had abdominal and pelvic CAT scan done today. Official report is seen indicative of gallbladder stones as well as questionable leak of air around the gastrostomy tube with possible bowel ileus, with small right pleural effusion. PHYSICAL EXAMINATION: GENERAL: An 82-year-old female. VITAL SIGNS: Afebrile with pulse of 94, respiratory rate 20 to 22, blood pressure 112/70. HEENT: Showed mildly pale, dry, oral mucous membrane. Nonicteric sclerae. LUNGS: Scattered crepitation. Decrease air entry at bases. HEART: Positive S1 and S2 with increased rate. ABDOMEN: Soft, slightly distended. Bowel sounds are hypoactive. PEG tube is in place and appeared to be with clean wound. No residual. EXTREMITIES: Without significant clubbing, cyanosis or edema. NEUROLOGIC: No reported new neurological deficits, sensory or motor. IMPRESSION: 1. Failure to thrive. 2. Status post percutaneous endoscopic gastrostomy insertion. 3. Malnutrition with hypoalbuminemia, hypoproteinemia. 4. Cholelithiasis. 5. Dysphagia. SUGGESTIONS: 1. Continue current management. 2. Close observation due to the CAT scan official report. 3. Adjust PEG feeling, may hold PEG feeding in the meantime time and repeat abdominal x-ray at a.m. 4. Continue IV antibiotics. 5. Further recommendation to follow. Derek Chapa MD
[2018-03-15] MEDS: Sodium Chloride 0.9% 1,000 ML IV SCH (05:42)
[2018-03-15 07:37] LABS: BASO % 0.1 % (0.0-2.0); EOS % 0.2 % (0.0-4.0); MONO # 0.5 K/uL (0.0-0.8)
[2018-03-15 07:47] LABS: LYMPH % 12.9 % (20.0-40.0); MEAN CELL VOLUME 77.4 fL (81.0-99.0); MEAN CORPUSCULAR HEMOGLOBIN 25.5 pg (27.0-31.0); MEAN CORPUSCULAR HGB CONC 32.9 g/dL (33.0-37.0); MONO % 6.1 % (0.0-10.0); NEUT # 6.4 K/uL (1.8-7.0); NEUT % 80.7 % (50.0-75.0); NRBC % 0.1 % (0.0-2.0); RBC 3.38 Mil/uL (3.80-5.20); RED CELL DISTRIBUTION WIDTH 19.2 % (11.5-14.5)
[2018-03-15 07:55] LABS: BLOOD UREA NITROGEN 12 mg/dL (7-17); CALCIUM 7.5 mg/dl (8.6-10.4); GFR NON-AFRICAN AMERICAN > 60
[2018-03-15 07:57] LABS: HEMOGLOBIN 8.6 g/dL (11.0-16.0)
--- NOTE | 2018-03-15 12:00 | PN ---
DATE: 03/15/2018 LOCATION: 360, bed A. SUBJECTIVE: This is an 82-year-old female seen and examined early in rounds, with status post PEG insertion, seen with the tube feeding on and off as initially was suggested to the staff before and the patient was given Reglan. The entire chart is reviewed including but not limited to the most recent lab and radiology study results, current and the previous medication list, current and the previous medical events. The patient had normal white blood cells with stable hemoglobin and hematocrit, normal with increased blood glucose level, low calcium, and low albumin as before the PEG tube was inserted. No fever or chills reported. PHYSICAL EXAMINATION: GENERAL: An 82-year-old female, poorly responding to verbal stimuli. VITAL SIGNS: Afebrile, with heart rate of 100, respiratory rate 20-22, with blood pressure of 98/64. HEENT: Showed pale, dry oral mucous membranes. Nonicteric sclerae. LUNGS: Few scattered crepitations. Decreased air entry at bases. HEART: Positive S1 and S2. ABDOMEN: Soft, with [id number] distention. No mass or organomegaly. PEG tube is in place without clear evidence of anterior abdominal wall cellulitis or active bleeding. EXTREMITIES: With edematous changes. No clubbing or cyanosis. NEUROLOGIC: No reported new neurological deficits, sensory or motor. IMPRESSION: 1. Malnutrition, dysphagia with hypoalbuminemia and failure to thrive. 2. Status post percutaneous endoscopic gastrostomy insertion. 3. Cholelithiasis by radiology study results. 4. Reexacerbation of peptic ulcer disease. SUGGESTIONS: 1. Continue current management. 2. Change the PEG feeding formula. 3. Flat and upright abdominal x-ray to be repeated. 4. Further recommendations to follow. Derek Chapa MD
--- NOTE | 2018-03-15 13:18 | PCM.SURG1 ---
Surgeon's Initial Post Op Note - Surgeon's Notes Surgeon: leslie Media Sales Consultant: non Pre-Operative Diagnosis: anemia Operative Findings: none Post-Operative Diagnosis: bleeding GI Operation Performed: TLC Specimen/Specimens Removed: none Estimated Blood Loss: EBL {In ML}: 0 Date of Surgery/Procedure: 03/15/18 Time of Surgery/Procedure: 13:18
[2018-03-15] MEDS ORDERED: Pantoprazole 80 MG in Sodium Chloride 0.9% 100 ML IVP SCH (13:30)
[2018-03-15 14:25] LABS: MEAN CELL VOLUME 76.4 fL (81.0-99.0); MEAN CORPUSCULAR HEMOGLOBIN 25.7 pg (27.0-31.0); MEAN CORPUSCULAR HGB CONC 33.6 g/dL (33.0-37.0); MEAN PLATELET VOLUME 8.9 fL (7.2-11.7); RBC 4.31 Mil/uL (3.80-5.20); RED CELL DISTRIBUTION WIDTH 19.3 % (11.5-14.5)
[2018-03-15 14:37] LABS: INR 1.3; PROTHROMBIN TIME 14.3 SECONDS (9.7-12.2)
[2018-03-15 14:40] LABS: HEMOGLOBIN 11.2 g/dL (11.0-16.0)
[2018-03-15 14:47] LABS: ALB/GLOB RATIO 0.6 (1.0-2.1); ALBUMIN 1.9 g/dL (3.5-5.0); ALT/SGPT 37 U/L (9-52); AST/SGOT 33 U/L (14-36); BLOOD UREA NITROGEN 13 mg/dL (7-17); CALCIUM 8.2 mg/dl (8.6-10.4); GFR NON-AFRICAN AMERICAN > 60
[2018-03-15 15:13] LABS: MONO # 0.1 K/uL (0.0-0.8)
[2018-03-15] MEDS ORDERED: Sodium Chloride 0.9% 500 ML IV ONE (18:02)
--- NOTE | 2018-03-15 18:05 | PCM.RRT ---
<EliezerShereen - Last Filed: 03/15/18 18:54> RN BSN Nurses Assessment - Situation Date: 03/15/18 Time RN BSN was called: 18:00 RN BSN Location:: Med/Oncology RN BSN Reason for Call: Change in Mental Status New IV Insertion Tolerance: Good - Constitutional Appears: Non-toxic, No Acute Distress, Chronically Ill - Head Head Exam: ATRAUMATIC, NORMAL INSPECTION - Eyes Eye Exam: EOMI - Respiratory Exam Respiratory Exam: NORMAL BREATHING PATTERN. absent: Respiratory Distress - Cardiovascular Exam Cardiovascular Exam: REGULAR RHYTHM, +S1, +S2 - GI/Abdominal Exam GI & Abdominal Exam: Soft, Normal Bowel Sounds. absent: Distended, Firm, Guarding, Tenderness - Neurological Exam Neurological Exam: absent: Alert, Awake, Oriented x3 Plan - Assessment of Findings&Treatment Plan Rapid response called because nurse for changes in mental status. Dr. Chavez was called to confirm patient's baseline mental status. Per Dr. Chowdary patient only opens her eyes but responds to pain and will grimace. She is non verbal. At first she was not responding to pain but then was reacting to pain. HR 120s, BP 104/48, O2% difficult to achieve. CBC, CMP, chest and abd X ray ordered. NPO aspiration precautions, head of bed elevate to 30 degrees. Patient put on high flow O2. ABG with shock ordered. Peg placed to suction due to vomiting Accuchecks Q6. D5NS at 75 cc/hour. Code sepsis was called. Lactic acid was placed for 3 hours from now (9:30) Patient was also admitted for UTI with microbiology showing enterococcus. Will start Zosyn IV Q6 and Vanc one gram x 1 dose for UTI and possible aspiration pneumonia. Per Dr. Chavez the family states that the patient is FULL CODE. <Donna Carter V - Last Filed: 03/16/18 16:54> RN BSN Nurses Assessment - Vital Signs Vital Signs: Rapid Response Vital Sign Blood Pressure 53/35 Pulse Rate 107 Respiratory Rate 18 Temperature 97.8 F - Vital Signs at end of RN BSN Vital Signs at end of RN BSN: Rapid Response End Vital Sign Blood Pressure 81/46 Pulse Rate 108 Respiratory Rate 20 Temperature 97.8 F O2 Sat by Pulse Oximetry 100 Attending/Attestation - Attestation I have personally seen and examined this patient.: Yes I have fully participated in the care of the patient.: Yes I have reviewed all pertinent clinical information, including history, physical exam and plan: Yes Notes (Text): This is late computer entry for 03/15/2018. This is a brief hospitalist note responded to rapid response and subsequent code sepsis. Her nursing's Staff there is a change in mental status. Patient is less responsive than usual. Baseline with PMD noted the patient is mute usually opens her eyes to discern Chris will occasionally move her extremities and was responsive to pain. Patient has borderline low blood pressure we have given a fluid bolus of 500 mL. Patient is tachycardic about 119 120s. There is a concern that she may be aspirating. Patient had a recent TLC placement earlier today. Patient was placed on protonic drip for possible GI bleed. Has had past episodes of questionable coffee-ground emesis per nursing staff noted some black substance from residual at that was patient bedside. Per review of labs patient's potassium 3.7 by magnesium low have repleted. We were able to obtain an ABG however potassium is mildly elevated 6.7 unclear with partially hemolyzed or not. We have provided unit treatment and per PMDs started high flow for the patient. On ABG patient's lactic acid is elevated 2.7. We have repeated blood cultures, urine culture. We have given dose of both Zosyn and vancomycin. There is a repeat lactic and 3 hours. Patient did have a chest x- ray and abdominal x-ray. Chest x-ray appears clear her abdominal x-ray shows dilated loops of bowel. She noted to have a recent PICC placement per discussion with PMD. Patient transfer telemetry. We have discussed plan of care with PMD at time of rapid response.
[2018-03-15 18:15] LABS: ABG ALLEN TEST POS; ARTERIAL BLOOD GAS HCO3 21.5 mmol/L (21-28); ARTERIAL BLOOD GAS O2 SAT 100.5 % (95-98); ARTERIAL BLOOD GAS PCO2 18 mm/Hg (35-45); ARTERIAL BLOOD GAS PH 7.54 (7.35-7.45); ARTERIAL BLOOD GAS PO2 179 mm/Hg (80-100)
[2018-03-15] MEDS ORDERED: Albuterol-Ipratrop 3 mg / 0.5 (3 ml) UD INH STA (18:20)
[2018-03-15 18:42] LABS: PLATELET COUNT 182 K/uL (130-400); WHITE BLOOD COUNT 5.2 K/uL (4.8-10.8)
[2018-03-15] MEDS ORDERED: Vancomycin 1 gm/NS 200 ml 1 GM/200 ML BAG IVPB STA (18:43)
[2018-03-15] MEDS ORDERED: Dextrose 5%/0.9% NS 1,000 ML IV ONE (18:53)
[2018-03-15 18:55] LABS: ALB/GLOB RATIO 0.6 (1.0-2.1); ALBUMIN 1.7 g/dL (3.5-5.0); ALT/SGPT 35 U/L (9-52); AST/SGOT 30 U/L (14-36); BLOOD UREA NITROGEN 14 mg/dL (7-17); CALCIUM 7.9 mg/dl (8.6-10.4); GFR NON-AFRICAN AMERICAN > 60
[2018-03-15 19:03] LABS: MEAN CELL VOLUME 76.4 fL (81.0-99.0); MEAN CORPUSCULAR HGB CONC 32.7 g/dL (33.0-37.0); MEAN PLATELET VOLUME 9.3 fL (7.2-11.7); RBC 4.41 Mil/uL (3.80-5.20); RED CELL DISTRIBUTION WIDTH 18.9 % (11.5-14.5)
[2018-03-15] MEDS: Magnesium Sulfate 1 gm in D5W 1 GM/100 ML BAG IVPB SCH ×3 (19:12→21:15)
[2018-03-15] MEDS: Piperacill/Tazo 3.375gm in Dex 3.375 GM/50 ML BAG IVPB SCH (19:28)
[2018-03-15 19:57] LABS: ANISOCYTOSIS SLIGHT; BANDS 7 % (0-2); HYPOCHROMIC SLIGHT; LYMPHOCYTE 9 % (20-40); MICROCYTOSIS SLIGHT; MONOCYTE 4 % (0-10); NEUTROPHIL 80 % (50-75); OVALOCYTES SLIGHT; PLATELET ESTIMATE NORMAL (NORMAL); POIKILOCYTOSIS SLIGHT; TARGET CELLS SLIGHT; TOTAL CELLS COUNTED 100
[2018-03-15 19:58] LABS: LARGE PLATELETS PRESENT
[2018-03-15] MEDS ORDERED: Sodium Chloride 0.9% 1,000 ML IV ONE (23:22)
[2018-03-15] MEDS ORDERED: Albumin Human 25% (12.5 gm/50 ml) IV ONE (23:22)
[2018-03-15] MEDS: Pantoprazole 80 MG in Sodium Chloride 0.9% 100 ML IVPB SCH (23:33)
--- NOTE | 2018-03-16 00:32 | CP.PCM.CON ---
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 Upon evaluation, patient is non verbal, is romansh patient, and information tried to obtain with help of patient's nurse who speaks Lao. Patient not in distress, easily arousable, not in visible pain or distress, BP 85/60, RR 18/min, HR 115/min, afebrile. Right groin tlc inserted yesterday by pmd, protonix drip started in suspicion of gi bleeding, labs till now showed maintained hematocrit, normal bun. PMH poor intake, dementia, possible old stroke, h/o seizure, dyslipidimia Allergies NKDA Meds reviewed, abx vancomycin and zosyn started Allergies nkda Review of Systems - Review of Systems All systems: reviewed and no additional remarkable complaints except (HPI) Past Patient History - Past Medical History & Family History Past Medical History?: Yes - Past Social History Smoking Status: Never Smoked Alcohol: None Drugs: Denies Home Situation {Lives}: Senior Care - CARDIAC Hx Hypertension: Yes - PULMONARY Hx Respiratory Disorders: Yes - NEUROLOGICAL Hx Dementia: Yes Hx Seizures: Yes - HEENT Hx Glaucoma: Yes - RENAL Hx Chronic Kidney Disease: No - ENDOCRINE/METABOLIC Hx Endocrine Disorders: No - HEMATOLOGICAL/ONCOLOGICAL Hx Blood Disorders: No - INTEGUMENTARY Hx Dermatological Problems: No - MUSCULOSKELETAL/RHEUMATOLOGICAL Hx Falls: Yes Hx Unsteady Gait: Yes (diff walking) - GASTROINTESTINAL Hx Gastrointestinal Disorders: No - GENITOURINARY/GYNECOLOGICAL Hx Genitourinary Disorders: No - PSYCHIATRIC Hx Substance Use: No - SURGICAL HISTORY Hx Surgeries: No - ANESTHESIA Hx Anesthesia: No Meds Allergies/Adverse Reactions: Allergies Allergy/AdvReac Type Severity Reaction Status Date / Time No Known Allergies Allergy Unverified 03/05/18 17:40 - Medications Medications: Current Medications Sodium Chloride (Sodium Chloride 0.9%) 1,000 mls @ 100 mls/hr IV .Q10H TANJA Last Admin: 03/15/18 05:42 Dose: 100 mls/hr Piperacillin Sod/Tazobactam Sod (Zosyn 3.375 Gm Iv Premix) 3.375 gm in 50 mls @ 100 mls/hr IVPB Q6H TANJA PRN Reason: Protocol Last Admin: 03/15/18 19:28 Dose: 100 mls/hr Dextrose/Sodium Chloride (Dextrose 5%/0.9% Ns 1000 Ml) 1,000 mls @ 75 mls/hr IV .[id number] ONE Stop: 03/16/18 08:12 Last Admin: 03/15/18 19:15 Dose: 75 mls/hr Pantoprazole Sodium 80 mg/ (Sodium Chloride) 100 mls @ 10 mls/hr IVPB .Q10H TANJA PRN Reason: 8 MG/HR Last Admin: 03/15/18 23:33 Dose: 10 mls/hr Sodium Chloride (Sodium Chloride 0.9%) 1,000 mls @ 1,000 mls/hr IV .Q1H ONE Stop: 03/16/18 00:21 Last Admin: 03/15/18 23:38 Dose: 1,000 mls/hr Metoclopramide HCl (Reglan) 5 mg IVP Q6 TANJA Stop: 03/16/18 12:01 Last Admin: 03/15/18 19:12 Dose: 5 mg Pantoprazole Sodium (Protonix Inj) 40 mg IVP DAILY [facility] Last Admin: 03/15/18 09:27 Dose: 40 mg Physical Exam - Additional Findings Additional findings: * HEENT ALESSANDRO * Neck supple, no jvd * Chest clear * CVS borderline tachycardia * PA soft, distended, peg in place, peg contents green to black in color * 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 Results - Vital Signs Recent Vital Signs: Last Vital Signs Temp 97.9 F 03/15/18 23:03 Pulse 107 H 03/15/18 23:03 Resp 20 03/15/18 23:03 BP 80/51 L 03/15/18 23:03 Pulse Ox 100 03/15/18 23:03 - Labs Result Diagrams: 03/15/18 18:38 03/15/18 18:38 Labs: Laboratory Results - last 24 hr 03/15/18 03/15/18 03/15/18 07:16 07:16 14:20 WBC 8.0 3.0 L D RBC 3.38 L 4.31 Hgb 8.6 L D 11.2 D Hct 26.2 L 33.0 L MCV 77.4 L 76.4 L MCH 25.5 L 25.7 L MCHC 32.9 L 33.6 RDW 19.2 H 19.3 H Plt Count 154 198 MPV 9.0 8.9 Neut % (Auto) 80.7 H 29.3 L Lymph % (Auto) 12.9 L 66.3 H [place] % (Auto) 6.1 3.5 Eos % (Auto) 0.2 0.3 Baso % (Auto) 0.1 0.6 Neut # (Auto) 6.4 0.8 L Lymph # (Auto) 1.0 1.9 [place] # (Auto) 0.5 0.1 Eos # (Auto) 0.0 0.0 Baso # (Auto) 0.0 0.0 Neutrophils % (Manual) Band Neutrophils % Lymphocytes % (Manual) Monocytes % (Manual) Platelet Estimate Large Platelets Hypochromasia (manual) Poikilocytosis (manual Anisocytosis (manual) Microcytosis (manual) Macrocytosis (manual) Target Cells Ovalocytes PT INR APTT Puncture Site pCO2 pO2 HCO3 ABG pH ABG Total CO2 ABG O2 Saturation ABG Base Excess Josue Test ABG Potassium Glucose Lactate Crit Value Called To Crit Value Called By Crit Value Read Back Blood Gas Notified Time Sodium 137 Potassium 4.0 Chloride 107 Carbon Dioxide 21 L Anion Gap 13 BUN 12 Creatinine 0.6 L Est GFR ( Amer) > 60 Est GFR (Non-Af Amer) > 60 POC Glucose (mg/dL) Random Glucose 112 H Lactic Acid Calcium 7.5 L Phosphorus Magnesium Total Bilirubin AST ALT Alkaline Phosphatase Total Protein Albumin Globulin Albumin/Globulin Ratio Arterial Blood Potassium Blood Type Antibody Screen 03/15/18 03/15/18 03/15/18 14:20 14:20 14:20 WBC RBC Hgb Hct MCV MCH MCHC RDW Plt Count MPV Neut % (Auto) Lymph % (Auto) [place] % (Auto) Eos % (Auto) Baso % (Auto) Neut # (Auto) Lymph # (Auto) [place] # (Auto) Eos # (Auto) Baso # (Auto) Neutrophils % (Manual) Band Neutrophils % Lymphocytes % (Manual) Monocytes % (Manual) Platelet Estimate Large Platelets Hypochromasia (manual) Poikilocytosis (manual Anisocytosis (manual) Microcytosis (manual) Macrocytosis (manual) Target Cells Ovalocytes PT 14.3 H INR 1.3 APTT 32 Puncture Site pCO2 pO2 HCO3 ABG pH ABG Total CO2 ABG O2 Saturation ABG Base Excess Josue Test ABG Potassium Glucose Lactate Crit Value Called To Crit Value Called By Crit Value Read Back Blood Gas Notified Time Sodium 136 Potassium 3.7 Chloride 106 Carbon Dioxide 21 L Anion Gap 13 BUN 13 Creatinine 0.7 Est GFR ( Amer) > 60 Est GFR (Non-Af Amer) > 60 POC Glucose (mg/dL) Random Glucose 143 H Lactic Acid Calcium 8.2 L Phosphorus 3.4 Magnesium 1.2 L Total Bilirubin 1.4 H AST 33 ALT 37 Alkaline Phosphatase 125 Total Protein 5.2 L Albumin 1.9 L Globulin 3.3 Albumin/Globulin Ratio 0.6 L Arterial Blood Potassium Blood Type O POSITIVE Antibody Screen Negative 03/15/18 03/15/18 03/15/18 17:52 18:07 18:38 WBC 5.2 D RBC 4.41 Hgb 11.0 Hct 33.7 L MCV 76.4 L MCH 25.0 L MCHC 32.7 L RDW 18.9 H Plt Count 182 MPV 9.3 Neut % (Auto) Lymph % (Auto) [place] % (Auto) Eos % (Auto) Baso % (Auto) Neut # (Auto) Lymph # (Auto) [place] # (Auto) Eos # (Auto) Baso # (Auto) Neutrophils % (Manual) 80 H Band Neutrophils % 7 H Lymphocytes % (Manual) 9 L Monocytes % (Manual) 4 Platelet Estimate Normal Large Platelets Present Hypochromasia (manual) Slight Poikilocytosis (manual Slight Anisocytosis (manual) Slight Microcytosis (manual) Slight Macrocytosis (manual) Slight Target Cells Slight Ovalocytes Slight PT INR APTT Puncture Site Rra pCO2 18 L* pO2 179 H HCO3 21.5 ABG pH 7.54 H ABG Total CO2 16.0 L ABG O2 Saturation 100.5 H ABG Base Excess -4.5 L Josue Test Pos ABG Potassium 6.7 H* Glucose 122 H Lactate 2.7 H Crit Value Called To Dr lieberman Crit Value Called By Renzo manjarrez supervisor specialty plant Crit Value Read Back Y Blood Gas Notified Time 1814 Sodium 135.0 Potassium Chloride 112.0 H Carbon Dioxide Anion Gap BUN Creatinine Est GFR ( Amer) Est GFR (Non-Af Amer) POC Glucose (mg/dL) 94 Random Glucose Lactic Acid Calcium Phosphorus Magnesium Total Bilirubin AST ALT Alkaline Phosphatase Total Protein Albumin Globulin Albumin/Globulin Ratio Arterial Blood Potassium 6.7 H* Blood Type Antibody Screen 03/15/18 03/15/18 18:38 21:52 WBC RBC Hgb Hct MCV MCH MCHC RDW Plt Count MPV Neut % (Auto) Lymph % (Auto) [place] % (Auto) Eos % (Auto) Baso % (Auto) Neut # (Auto) Lymph # (Auto) [place] # (Auto) Eos # (Auto) Baso # (Auto) Neutrophils % (Manual) Band Neutrophils % Lymphocytes % (Manual) Monocytes % (Manual) Platelet Estimate Large Platelets Hypochromasia (manual) Poikilocytosis (manual Anisocytosis (manual) Microcytosis (manual) Macrocytosis (manual) Target Cells Ovalocytes PT INR APTT Puncture Site pCO2 pO2 HCO3 ABG pH ABG Total CO2 ABG O2 Saturation ABG Base Excess Josue Test ABG Potassium Glucose Lactate Crit Value Called To Crit Value Called By Crit Value Read Back Blood Gas Notified Time Sodium 137 Potassium 3.7 Chloride 107 Carbon Dioxide 19 L Anion Gap 14 BUN 14 Creatinine 0.7 Est GFR ( Amer) > 60 Est GFR (Non-Af Amer) > 60 POC Glucose (mg/dL) Random Glucose 129 H Lactic Acid 4.3 H* Calcium 7.9 L Phosphorus Magnesium Total Bilirubin 1.3 AST 30 ALT 35 Alkaline Phosphatase 116 Total Protein 4.6 L Albumin 1.7 L Globulin 2.9 Albumin/Globulin Ratio 0.6 L Arterial Blood Potassium Blood Type Antibody Screen Assessment & Plan - Assessment and Plan (Free Text) Assessment: * Hypotension multifactorial ie, dehydration, low albumin, suspected cortisol deficiency, DD of spesis, especially with free air in the peritonium post peg/ primary leakage * Severe dementia, non communicative * s/p recent peg for poor intake. Plan: * Continue abx * Ordered CTA, abd/pelvis ct with iv contrast * IVF, albumin * stat labs included procalcitonin, cortisol, latic acid * D/w Dr. Kearney on phone * These repeat labs, ct will be observed to conclude more on DD, and decide about bed disposition. * Ricardo cath for urine output.
[2018-03-16] MEDS: Sodium Chloride 0.9% 1,000 ML IV SCH ×3 (01:00→21:00)
[2018-03-16] MEDS: Piperacill/Tazo 3.375gm in Dex 3.375 GM/50 ML BAG IVPB SCH ×4 (01:30→19:25)
[2018-03-16 01:55] LABS: ALB/GLOB RATIO 0.8 (1.0-2.1); ALBUMIN 1.9 g/dL (3.5-5.0); ALT/SGPT 33 U/L (9-52); AST/SGOT 20 U/L (14-36); BLOOD UREA NITROGEN 13 mg/dL (7-17); CALCIUM 7.6 mg/dl (8.6-10.4); GFR NON-AFRICAN AMERICAN > 60
--- NOTE | 2018-03-16 01:58 | PCM.RRT ---
CENTRIFUGAL SCREEN TENDER Nurses Assessment - Situation Date: 03/15/18 Time CENTRIFUGAL SCREEN TENDER was called: 01:46 CENTRIFUGAL SCREEN TENDER Location:: [facility]/Surg CENTRIFUGAL SCREEN TENDER Reason for Call: Hypotension - IV IV Inserted during CENTRIFUGAL SCREEN TENDER?: No IV Fluids Initiated During CENTRIFUGAL SCREEN TENDER?: yes New IV Insertion Tolerance: Good - Respiratory CENTRIFUGAL SCREEN TENDER Delivery Method: Nasal Cannula @L/min Oxygen Flow Rate: 3 Received Nebulizer Treatments: No Was the Patient Ventilated with Bag/Mask 100% O2?: No Secretions Suctioned?: No Was the Patient Placed on a Ventilator?: No - Medication Medications Administered During CENTRIFUGAL SCREEN TENDER: Normal saline Bolus x1 - Diagnostic Test Ordered EKG: No Chest X-Ray: Yes CT Scan: No - Stat Labs Ordered CENTRIFUGAL SCREEN TENDER Stat Labs Ordered: CBC, BMP, BLOOD C&S X2 CPR started during CENTRIFUGAL SCREEN TENDER?: No - Vital Signs Vital Signs: Rapid Response Vital Sign Blood Pressure 78/38 Pulse Rate 105 Respiratory Rate 20 Temperature 98.0 F - John Coma Scale Coma Scale Eye Opening: To pain Coma Scale Motor: Movement to pain stimulus Coma Scale Verbal: No response Coma Scale Total: 8 - Sepsis Screen Part 1 Sepsis Screen Part 1: Hypotensive - Time CENTRIFUGAL SCREEN TENDER Ended Time CENTRIFUGAL SCREEN TENDER Ended: 01:52 - Vital Signs at end of CENTRIFUGAL SCREEN TENDER Vital Signs at end of CENTRIFUGAL SCREEN TENDER: Rapid Response End Vital Sign Blood Pressure 81/57 Pulse Rate 104 Respiratory Rate 20 Temperature 98.0 F O2 Sat by Pulse Oximetry 100 - Recommendations Notifications: Attending Physician I.Reason for CENTRIFUGAL SCREEN TENDER - A) Acute Change in Patient: (Select all that apply): Acute change in SBP below (78/38) - Neurological Status (Select all that apply): Disoriented - Respiratory Oxygen Delivery Method: Nasal Cannula @L/min Oxygen Flow Rate: 3 - Head Head Exam: ATRAUMATIC, NORMAL INSPECTION - Eyes Eye Exam: EOMI, Normal appearance - Respiratory Exam Respiratory Exam: Clear to Ausculation Bilateral, NORMAL BREATHING PATTERN Additional comments: On nasal canula - Cardiovascular Exam Cardiovascular Exam: REGULAR RHYTHM, +S1 - GI/Abdominal Exam GI & Abdominal Exam: Soft, Normal Bowel Sounds. absent: Tenderness - Neurological Exam Neurological Exam: Awake. absent: Alert, Oriented x3 Additional exam: Responsive to pain - Extremities Exam Extremities Exam: absent: Pedal Edema Plan - Assessment of Findings&Treatment Plan CENTRIFUGAL SCREEN TENDER was called for hypotension. Lactate 21:52 was 4.3 up from 2.7 at 18:07. Patient received one fluid bolus during CENTRIFUGAL SCREEN TENDER. Plan is for patient to have STAT CT abd/pelvis. Orders: Ct abd pelvis, CT angio chest, CMP, cortisol, lactic acid, mg, troponin , procalcitonin
[2018-03-16 02:08] LABS: IRON < 10 ug/dL (37-170)
[2018-03-16 02:09] LABS: TOTAL IRON BINDING CAPACITY 113 ug/dL (250-450)
[2018-03-16] MEDS ORDERED: Iodixanol 320 MG/ML 100 ML BOTTLE IV ONE (02:27)
[2018-03-16] MEDS ORDERED: Albumin Human 25% (12.5 gm/50 ml) IV ONE (02:28)
[2018-03-16 02:50] LABS: FOLATE 3.9 ng/mL
[2018-03-16 03:41] LABS: LYMPH # 0.8 K/uL (1.0-4.3); LYMPH % 11.2 % (20.0-40.0); MEAN CELL VOLUME 77.1 fL (81.0-99.0); MEAN CORPUSCULAR HEMOGLOBIN 25.9 pg (27.0-31.0); MEAN CORPUSCULAR HGB CONC 33.6 g/dL (33.0-37.0); MEAN PLATELET VOLUME 8.8 fL (7.2-11.7); MONO # 0.3 K/uL (0.0-0.8); MONO % 4.5 % (0.0-10.0); NEUT # 6.4 K/uL (1.8-7.0); NEUT % 84.3 % (50.0-75.0); NRBC % 0.1 % (0.0-2.0); RBC 3.2 Mil/uL (3.80-5.20); RED CELL DISTRIBUTION WIDTH 18.9 % (11.5-14.5); WHITE BLOOD COUNT 7.6 K/uL (4.8-10.8)
[2018-03-16 03:48] LABS: HEMOGLOBIN 8.3 g/dL (11.0-16.0)
--- NOTE | 2018-03-16 07:04 | PCM.SEPTIC ---
Sepsis Progress Note - Reassessment Type Date of Evaluation: 03/15/18 Time of Evaluation: 23:00 Reassessment Type: Non-invasive reassessment - Non Invasive Reassessment Were the most recent vital sign reviewed: Yes Vital Sign (Latest): Temp Pulse Resp BP Pulse Ox 97.0 F L 105 H 14 86/44 L 100 03/16/18 06:38 03/16/18 06:38 03/16/18 06:38 03/16/18 06:38 03/16/18 06:10 Cardiovascular: Yes: Regular Rate, Rhythm Respiratory: Yes: Normal Breath Sounds. No: Wheezing, Respiratory Distress Capillary Refill: Normal (Less than 2 sec) Pulses: Normal Radial, Normal Dorsalis Pedis, Normal Posterior Tibialis Skin: Pale - Invasive Reassessment (complete 2 of 4) Was a Central Venous Pressure Measurement obtained within 6 Hours after the presentation of septic shock: No Was a central venous oxygen measurement obtained within 6 hours after the presentation of septic shock: No Was a bedside cardiovascular ultrasound performed within 6 hours after the presentation of septic shock: No
--- NOTE | 2018-03-16 08:23 | RAD ---
Date of service: 03/15/2018 HISTORY: rapid response COMPARISON: No prior. FINDINGS: BOWEL: Gaseous distention of bowel. Large volume pneumoperitoneum. BONES: Degenerative changes OTHER FINDINGS: Right common femoral vein access venous catheter. IMPRESSION: Large volume pneumoperitoneum. At the time of this dictation, a CT scan of the abdomen and pelvis had already been performed.
--- NOTE | 2018-03-16 08:29 | RAD ---
Date of service: 03/15/2018 HISTORY: rapid response COMPARISON: Chest radiograph dated 03/14/2018 FINDINGS: LUNGS: No active pulmonary disease. PLEURA: No significant pleural effusion identified, no pneumothorax apparent. CARDIOVASCULAR: Atherosclerotic aortic calcifications. Cardiomediastinal silhouette within normal limits. OSSEOUS STRUCTURES: Unchanged. VISUALIZED UPPER ABDOMEN: Large volume pneumoperitoneum. Gaseous distention of bowel. OTHER FINDINGS: None. IMPRESSION: No focal consolidation or pleural effusion. Large volume pneumoperitoneum.
[2018-03-16 09:08] LABS: LYMPH # 0.8 K/uL (1.0-4.3); NEUT # 1.9 K/uL (1.8-7.0)
[2018-03-16 09:15] LABS: HEMOGLOBIN 9.7 g/dL (11.0-16.0)
--- NOTE | 2018-03-16 09:43 | CP.PCM.CON ---
History of Present Illness - History of Present Illness History of Present Illness: Surgery 82 F w HO dementia s/p PEG placement for dysphagia and failure to thrive came from [facility] with AMS, dysphagia and UTI. PT had PEG placed on 03/15. Rapid was called for hypotension and tachycardia. Pt is taken to ICU and has central line on R groin for pressers. Pt also had menela and was placed on PPI drip. CT was taken and show large free air and possible duodenal perf. lingual PE. Surgery is consulted to evaluate for PE and possible duodenal perf read on CT. Pt is contracted and has dementia. Unable to obtain history from the pt / AMS. PMH see above, CVA PSH see above SS lived [place] Review of Systems - Review of Systems Systems not reviewed;Unavailable: Dementia, Altered Mental Status Past Patient History - Past Medical History & Family History Past Medical History?: Yes - Past Social History Smoking Status: Never Smoked Alcohol: None Drugs: Denies Home Situation {Lives}: [facility] - CARDIAC Hx Hypertension: Yes - PULMONARY Hx Respiratory Disorders: Yes - NEUROLOGICAL Hx Dementia: Yes Hx Seizures: Yes - HEENT Hx Glaucoma: Yes - RENAL Hx Chronic Kidney Disease: No - ENDOCRINE/METABOLIC Hx Endocrine Disorders: No - HEMATOLOGICAL/ONCOLOGICAL Hx Blood Disorders: No - INTEGUMENTARY Hx Dermatological Problems: No - MUSCULOSKELETAL/RHEUMATOLOGICAL Hx Falls: Yes Hx Unsteady Gait: Yes (diff walking) - GASTROINTESTINAL Hx Gastrointestinal Disorders: No - GENITOURINARY/GYNECOLOGICAL Hx Genitourinary Disorders: No - PSYCHIATRIC Hx Substance Use: No - SURGICAL HISTORY Hx Surgeries: No - ANESTHESIA Hx Anesthesia: No Meds Allergies/Adverse Reactions: Allergies Allergy/AdvReac Type Severity Reaction Status Date / Time No Known Allergies Allergy Unverified 03/05/18 17:40 - Medications Medications: Current Medications Sodium Chloride (Sodium Chloride 0.9%) 1,000 mls @ 100 mls/hr IV .Q10H TANAJ Last Admin: 03/16/18 01:00 Dose: Not Given Piperacillin Sod/Tazobactam Sod (Zosyn 3.375 Gm Iv Premix) 3.375 gm in 50 mls @ 100 mls/hr IVPB Q6H TANJA PRN Reason: Protocol Last Admin: 03/16/18 07:58 Dose: 100 mls/hr Pantoprazole Sodium 80 mg/ (Sodium Chloride) 100 mls @ 10 mls/hr IVPB .Q10H [facility] PRN Reason: 8 MG/HR Last Admin: 03/15/18 23:33 Dose: 10 mls/hr Metoclopramide HCl (Reglan) 5 mg IVP Q6 [facility] Stop: 03/16/18 12:01 Last Admin: 03/16/18 06:30 Dose: Not Given Pantoprazole Sodium (Protonix Inj) 40 mg IVP DAILY [facility] Last Admin: 03/15/18 09:27 Dose: 40 mg Physical Exam - Constitutional Appears: In Acute Distress, Unkempt, Confused, Cachectic, Chronically Ill - Head Exam Head Exam: ATRAUMATIC, NORMAL INSPECTION, NORMOCEPHALIC - Eye Exam Eye Exam: EOMI, Normal appearance, PERRL Pupil Exam: NORMAL ACCOMODATION, PERRL - ENT Exam ENT Exam: Normal Exam - Neck Exam Neck exam: Positive for: Normal Inspection - Respiratory Exam Respiratory Exam: absent: Respiratory Distress - Cardiovascular Exam Cardiovascular Exam: Tachycardia, +S1, +S2 - GI/Abdominal Exam GI & Abdominal Exam: Distended, Soft, Tenderness. absent: Firm, Guarding, Hernia, Rigid Additional comments: PEG in place. on suction - Rectal Exam Rectal Exam: Hemorrhoids. absent: Black Stool, Bloody Stool Additional comments: normal tone. No mass, no blood. - Exam Exam: NORMAL INSPECTION - Extremities Exam Extremities exam: Negative for: full ROM Additional comments: contracted - Back Exam Back exam: NORMAL INSPECTION - Neurological Exam Neurological exam: Altered - Skin Skin Exam: Dry, Intact, Normal Color, Warm Results - Vital Signs Recent Vital Signs: Last Vital Signs Temp 97.5 F L 03/16/18 06:45 Pulse 106 H 03/16/18 09:36 Resp 15 03/16/18 09:36 BP 108/56 L 03/16/18 09:37 Pulse Ox 98 03/16/18 09:36 - Labs Result Diagrams: 03/16/18 09:02 03/16/18 01:11 Labs: Laboratory Results - last 24 hr 03/15/18 03/15/18 03/15/18 14:20 14:20 14:20 WBC 3.0 L D RBC 4.31 Hgb 11.2 D Hct 33.0 L MCV 76.4 L MCH 25.7 L MCHC 33.6 RDW 19.3 H Plt Count 198 MPV 8.9 Neut % (Auto) 67.0 Lymph % (Auto) 28.0 Humphreys % (Auto) 5.0 Eos % (Auto) 0.0 Baso % (Auto) 0.0 Neut # (Auto) 1.9 Lymph # (Auto) 0.8 L Humphreys # (Auto) 0.1 Eos # (Auto) 0.0 Baso # (Auto) 0.0 Neutrophils % (Manual) Band Neutrophils % Lymphocytes % (Manual) Monocytes % (Manual) Platelet Estimate Large Platelets Hypochromasia (manual) Poikilocytosis (manual Anisocytosis (manual) Microcytosis (manual) Macrocytosis (manual) Target Cells Ovalocytes PT 14.3 H INR 1.3 APTT 32 Puncture Site pCO2 pO2 HCO3 ABG pH ABG Total CO2 ABG O2 Saturation ABG Base Excess Josue Test ABG Potassium Glucose Lactate Crit Value Called To Crit Value Called By Crit Value Read Back Blood Gas Notified Time Sodium 136 Potassium 3.7 Chloride 106 Carbon Dioxide 21 L Anion Gap 13 BUN 13 Creatinine 0.7 Est GFR ( Amer) > 60 Est GFR (Non-Af Amer) > 60 POC Glucose (mg/dL) Random Glucose 143 H Lactic Acid Calcium 8.2 L Phosphorus 3.4 Magnesium 1.2 L Iron TIBC % Saturation Total Bilirubin 1.4 H AST 33 ALT 37 Alkaline Phosphatase 125 Troponin I Total Protein 5.2 L Albumin 1.9 L Globulin 3.3 Albumin/Globulin Ratio 0.6 L Vitamin B12 Folate Procalcitonin Plasma Cortisol PM Arterial Blood Potassium Blood Type Antibody Screen 03/15/18 03/15/18 03/15/18 14:20 17:52 18:07 WBC RBC Hgb Hct MCV MCH MCHC RDW Plt Count MPV Neut % (Auto) Lymph % (Auto) Humphreys % (Auto) Eos % (Auto) Baso % (Auto) Neut # (Auto) Lymph # (Auto) Humphreys # (Auto) Eos # (Auto) Baso # (Auto) Neutrophils % (Manual) Band Neutrophils % Lymphocytes % (Manual) Monocytes % (Manual) Platelet Estimate Large Platelets Hypochromasia (manual) Poikilocytosis (manual Anisocytosis (manual) Microcytosis (manual) Macrocytosis (manual) Target Cells Ovalocytes PT INR APTT Puncture Site Rra pCO2 18 L* pO2 179 H HCO3 21.5 ABG pH 7.54 H ABG Total CO2 16.0 L ABG O2 Saturation 100.5 H ABG Base Excess -4.5 L Josue Test Pos ABG Potassium 6.7 H* Glucose 122 H Lactate 2.7 H Crit Value Called To Dr lieberman Crit Value Called By Renzo manjarrez material movers Crit Value Read Back Y Blood Gas Notified Time 181 Sodium 135.0 Potassium Chloride 112.0 H Carbon Dioxide Anion Gap BUN Creatinine Est GFR ( Amer) Est GFR (Non-Af Amer) POC Glucose (mg/dL) 94 Random Glucose Lactic Acid Calcium Phosphorus Magnesium Iron TIBC % Saturation Total Bilirubin AST ALT Alkaline Phosphatase Troponin I Total Protein Albumin Globulin Albumin/Globulin Ratio Vitamin B12 Folate Procalcitonin Plasma Cortisol PM Arterial Blood Potassium 6.7 H* Blood Type O POSITIVE Antibody Screen Negative 03/15/18 03/15/18 03/15/18 18:38 18:38 21:52 WBC 5.2 D RBC 4.41 Hgb 11.0 Hct 33.7 L MCV 76.4 L MCH 25.0 L MCHC 32.7 L RDW 18.9 H Plt Count 182 MPV 9.3 Neut % (Auto) Lymph % (Auto) Humphreys % (Auto) Eos % (Auto) Baso % (Auto) Neut # (Auto) Lymph # (Auto) Humphreys # (Auto) Eos # (Auto) Baso # (Auto) Neutrophils % (Manual) 80 H Band Neutrophils % 7 H Lymphocytes % (Manual) 9 L Monocytes % (Manual) 4 Platelet Estimate Normal Large Platelets Present Hypochromasia (manual) Slight Poikilocytosis (manual Slight Anisocytosis (manual) Slight Microcytosis (manual) Slight Macrocytosis (manual) Slight Target Cells Slight Ovalocytes Slight PT INR APTT Puncture Site pCO2 pO2 HCO3 ABG pH ABG Total CO2 ABG O2 Saturation ABG Base Excess Josue Test ABG Potassium Glucose Lactate Crit Value Called To Crit Value Called By Crit Value Read Back Blood Gas Notified Time Sodium 137 Potassium 3.7 Chloride 107 Carbon Dioxide 19 L Anion Gap 14 BUN 14 Creatinine 0.7 Est GFR ( Amer) > 60 Est GFR (Non-Af Amer) > 60 POC Glucose (mg/dL) Random Glucose 129 H Lactic Acid 4.3 H* Calcium 7.9 L Phosphorus Magnesium Iron TIBC % Saturation Total Bilirubin 1.3 AST 30 ALT 35 Alkaline Phosphatase 116 Troponin I Total Protein 4.6 L Albumin 1.7 L Globulin 2.9 Albumin/Globulin Ratio 0.6 L Vitamin B12 Folate Procalcitonin Plasma Cortisol PM Arterial Blood Potassium Blood Type Antibody Screen 03/16/18 03/16/18 03/16/18 00:07 01:11 01:11 WBC RBC Hgb Hct MCV MCH MCHC RDW Plt Count MPV Neut % (Auto) Lymph % (Auto) Humphreys % (Auto) Eos % (Auto) Baso % (Auto) Neut # (Auto) Lymph # (Auto) Humphreys # (Auto) Eos # (Auto) Baso # (Auto) Neutrophils % (Manual) Band Neutrophils % Lymphocytes % (Manual) Monocytes % (Manual) Platelet Estimate Large Platelets Hypochromasia (manual) Poikilocytosis (manual Anisocytosis (manual) Microcytosis (manual) Macrocytosis (manual) Target Cells Ovalocytes PT INR APTT Puncture Site pCO2 pO2 HCO3 ABG pH ABG Total CO2 ABG O2 Saturation ABG Base Excess Josue Test ABG Potassium Glucose Lactate Crit Value Called To Crit Value Called By Crit Value Read Back Blood Gas Notified Time Sodium 137 Potassium 3.4 L Chloride 109 H Carbon Dioxide 15 L Anion Gap 16 BUN 13 Creatinine 0.8 Est GFR ( Amer) > 60 Est GFR (Non-Af Amer) > 60 POC Glucose (mg/dL) 140 H Random Glucose 200 H Lactic Acid Calcium 7.6 L Phosphorus 3.2 Magnesium 2.2 Iron TIBC % Saturation Total Bilirubin 1.5 H AST 20 ALT 33 Alkaline Phosphatase 82 Troponin I 0.0430 Total Protein 4.2 L Albumin 1.9 L Globulin 2.3 Albumin/Globulin Ratio 0.8 L Vitamin B12 530 Folate 3.9 Procalcitonin Plasma Cortisol PM 85.7 H Arterial Blood Potassium Blood Type Antibody Screen 03/16/18 03/16/18 03/16/18 01:11 01:32 01:48 WBC RBC Hgb Hct MCV MCH MCHC RDW Plt Count MPV Neut % (Auto) Lymph % (Auto) Humphreys % (Auto) Eos % (Auto) Baso % (Auto) Neut # (Auto) Lymph # (Auto) Humphreys # (Auto) Eos # (Auto) Baso # (Auto) Neutrophils % (Manual) Band Neutrophils % Lymphocytes % (Manual) Monocytes % (Manual) Platelet Estimate Large Platelets Hypochromasia (manual) Poikilocytosis (manual Anisocytosis (manual) Microcytosis (manual) Macrocytosis (manual) Target Cells Ovalocytes PT INR APTT Puncture Site pCO2 pO2 HCO3 ABG pH ABG Total CO2 ABG O2 Saturation ABG Base Excess Josue Test ABG Potassium Glucose Lactate Crit Value Called To Crit Value Called By Crit Value Read Back Blood Gas Notified Time Sodium Potassium Chloride Carbon Dioxide Anion Gap BUN Creatinine Est GFR ( Amer) Est GFR (Non-Af Amer) POC Glucose (mg/dL) 204 H Random Glucose Lactic Acid 4.1 H* Calcium Phosphorus Magnesium Iron < 10 L TIBC 113 L % Saturation TEST NOT PERFORMED Total Bilirubin AST ALT Alkaline Phosphatase Troponin I Total Protein Albumin Globulin Albumin/Globulin Ratio Vitamin B12 Folate Procalcitonin Plasma Cortisol PM Arterial Blood Potassium Blood Type Antibody Screen 03/16/18 03/16/18 03/16/18 03:37 09:02 Unknown WBC 7.6 RBC 3.20 L Hgb 8.3 L D 9.7 L Hct 24.6 L 28.7 L MCV 77.1 L MCH 25.9 L MCHC 33.6 RDW 18.9 H Plt Count 141 MPV 8.8 Neut % (Auto) 84.3 H Lymph % (Auto) 11.2 L Humphreys % (Auto) 4.5 Eos % (Auto) 0.0 Baso % (Auto) 0.0 Neut # (Auto) 6.4 Lymph # (Auto) 0.8 L Humphreys # (Auto) 0.3 Eos # (Auto) 0.0 Baso # (Auto) 0.0 Neutrophils % (Manual) Band Neutrophils % Lymphocytes % (Manual) Monocytes % (Manual) Platelet Estimate Large Platelets Hypochromasia (manual) Poikilocytosis (manual Anisocytosis (manual) Microcytosis (manual) Macrocytosis (manual) Target Cells Ovalocytes PT INR APTT Puncture Site pCO2 pO2 HCO3 ABG pH ABG Total CO2 ABG O2 Saturation ABG Base Excess Josue Test ABG Potassium Glucose Lactate Crit Value Called To Crit Value Called By Crit Value Read Back Blood Gas Notified Time Sodium Potassium Chloride Carbon Dioxide Anion Gap BUN Creatinine Est GFR ( Amer) Est GFR (Non-Af Amer) POC Glucose (mg/dL) Random Glucose Lactic Acid Calcium Phosphorus Magnesium Iron TIBC % Saturation Total Bilirubin AST ALT Alkaline Phosphatase Troponin I Total Protein Albumin Globulin Albumin/Globulin Ratio Vitamin B12 Folate Procalcitonin 4.83 H Plasma Cortisol PM Arterial Blood Potassium Blood Type Antibody Screen Assessment & Plan - Assessment and Plan (Free Text) Assessment: PE with episodes of melena Free air on CT: possibly 2/2 the PEG -NPO -IVF -ABX DW Dr. Robison
[2018-03-16 09:52] LABS: ALBUMIN 2.5 g/dL (3.5-5.0); ALT/SGPT 30 U/L (9-52); AST/SGOT 24 U/L (14-36); BLOOD UREA NITROGEN 13 mg/dL (7-17); CALCIUM 8.2 mg/dl (8.6-10.4); GFR NON-AFRICAN AMERICAN > 60
--- NOTE | 2018-03-16 10:08 | CT ---
Date of service: 03/16/2018 PROCEDURE: CT Chest with contrast (Pulmonary Angiogram) HISTORY: hypotension, elevated lactic acid COMPARISON: None available. TECHNIQUE: Axial computed tomography images were obtained of the chest in the pulmonary arterial phase of enhancement. Coronal and sagittal reformatted images were created and reviewed. Intravenous contrast dose: 100 mL Visipaque 320 Radiation dose: Total exam DLP = 319.7 mGy-cm. This CT exam was performed using one or more of the following dose reduction techniques: Automated exposure control, adjustment of the mA and/or kV according to patient size, and/or use of iterative reconstruction technique. FINDINGS: PULMONARY ARTERIES: Pulmonary emboli identified in segmental lingular as well as subsegmental left upper and right lower lobe branches. AORTA: No acute findings. No thoracic aortic aneurysm. LUNGS: Pulmonary vascular congestion. Bilateral lower lobe atelectasis. No nodule, mass or pulmonary consolidation. PLEURAL SPACES: Small bilateral pleural effusions. No pneumothorax. HEART: Unremarkable. No cardiomegaly. No significant pericardial effusion. LYMPH NODES: Small prominent mediastinal and right hilar lymph nodes. BONES, CHEST WALL: Unremarkable. No fracture or destructive lesion OTHER FINDINGS: Large volume partially imaged pneumoperitoneum. Intra-abdominal findings will be reported separately. IMPRESSION: Bilateral pulmonary emboli as described above. No CT evidence of right heart strain. Pulmonary vascular congestion with small bilateral pleural effusions and subjacent atelectasis. Partially imaged large volume pneumoperitoneum. Intra-abdominal findings were reported separately.
--- NOTE | 2018-03-16 10:27 | CT ---
Date of service: 03/16/2018 PROCEDURE: CT Abdomen and Pelvis with contrast HISTORY: hypotension, elevated lactic acid, abd free air COMPARISON: CT scan of the abdomen dated 03/14/2018 TECHNIQUE: Contrast dose: 100 mL Visipaque 320 Radiation dose: Total exam DLP = 711.5 mGy-cm. This CT exam was performed using one or more of the following dose reduction techniques: Automated exposure control, adjustment of the mA and/or kV according to patient size, and/or use of iterative reconstruction technique. FINDINGS: LOWER THORAX: Small bilateral pleural effusions with subjacent atelectasis. LIVER: Unremarkable. No gross lesion or ductal dilatation. GALLBLADDER AND BILE DUCTS: Distended gallbladder with minimal calcified cholelithiasis. Mild gallbladder wall thickening/ edema. PANCREAS: Unremarkable. No gross lesion or ductal dilatation. SPLEEN: Posterior splenic cleft/defect. ADRENALS: Unremarkable. No mass. KIDNEYS AND URETERS: Unremarkable. No hydronephrosis. No solid mass. VASCULATURE: Calcific atherosclerosis. No aortic aneurysm. BOWEL: Gastrostomy tube in distal stomach redemonstrated. Marked thickening of the distal stomach and duodenum. Gas adjacent to gastrostomy tube large volume pneumoperitoneum seen in the upper abdomen. Rectal wall thickening. APPENDIX: Normal appendix. PERITONEUM: Calcified granulomas in the gluteal soft tissues. No free fluid. No free air. LYMPH NODES: Unremarkable. No enlarged lymph nodes. BLADDER: Decompressed around a Ricardo catheter. REPRODUCTIVE: Prominent endometrium with loss of smooth contour. BONES: No acute fracture. OTHER FINDINGS: None. IMPRESSION: Recent gastrostomy tube placement with large volume pneumoperitoneum and thickening of the distal stomach/ duodenum. Small bilateral pleural effusions.
--- NOTE | 2018-03-16 13:39 | PN ---
DATE: 03/16/2018 LOCATION: ICU 1. SUBJECTIVE: This is an 82-year-old female who was transferred to the intensive care unit with some coffee-ground material through the PEG tube as reported, after having Rapid Response in the floor as the patient became somewhat hypotensive. The patient, however, is aphasic and unable to give accurate complaint and with poor communication verbally. PHYSICAL EXAMINATION: GENERAL: An 82-year-old female. VITAL SIGNS: Afebrile, with pulse of 100, recent blood pressure 110/48, respiratory rate 16-18. HEENT: Showed pale, dry oral mucous membranes. Nonicteric sclerae. LUNGS: Few scattered crepitations. Decreased air entry at bases. HEART: Positive S1 and S2. ABDOMEN: Soft, with mild generalized tenderness. No mass or organomegaly. No rebound tenderness or guarding. No abdominal distention. The PEG tube is in place without any evidence of anterior abdominal wall cellulitis. I note no evidence of active bleeding from the site of the PEG tube or the PEG tube itself and the abdomen is not distended, but soft and flat. EXTREMITIES: With lower extremity mild edematous changes and some contractions. The entire chart is reviewed including but not limited to the most recent lab and radiology study results, current and the previous medication list, current and the previous medical events, and the latest hemoglobin was 9.7, hematocrit 28.7. No blood transfusion was given, with potassium 3.4, CO2 content 15, with blood glucose level 204. Lactic acid 4.1, total bilirubin 1.5, albumin 1.9, with total protein 4.2. PEG feeding is on hold. IMPRESSION: 1. Malnutrition. 2. Hypoalbuminemia, hypoproteinemia. 3. Status post percutaneous endoscopic gastrostomy tube insertion. 4. Clinically, the patient has no evidence of perforation, awaiting the official report from recently done CAT scan of the abdomen and pelvis. 5. Anemia with possible gastrointestinal blood loss, upper versus lower. SUGGESTIONS: 1. Continue current management. 2. If there is sign of recurrent gastrointestinal bleeding from the PEG tube or subsequent drop of hemoglobin and hematocrit, then blood transfusion and repeat upper endoscopy at a.m. should be kept in mind, otherwise close observation to follow. Derek Chapa MD [facility] # [phone]
[2018-03-16] MEDS: Pantoprazole 80 MG in Sodium Chloride 0.9% 100 ML IVPB SCH (14:00)
--- NOTE | 2018-03-16 14:06 | CP.PCM.PN ---
Subjective - Date & Time of Evaluation Date of Evaluation: 03/16/18 Time of Evaluation: 14:06 - Subjective Subjective: clinical condition no changes pt on levophed Objective - Vital Signs/Intake and Output Vital Signs (last 24 hours): Temp Pulse Resp BP Pulse Ox 97.0 F L 103 H 15 90/43 L 100 03/16/18 08:00 03/16/18 14:00 03/16/18 14:00 03/16/18 13:52 03/16/18 14:00 Intake and Output: 03/16/18 03/16/18 06:59 18:59 Intake Total 482.5 568 Output Total 495 150 Balance -12.5 418 - Medications Medications: Current Medications Sodium Chloride (Sodium Chloride 0.9%) 1,000 mls @ 100 mls/hr IV .Q10H [facility]ANJA Last Admin: 03/16/18 01:00 Dose: Not Given Piperacillin Sod/Tazobactam Sod (Zosyn 3.375 Gm Iv Premix) 3.375 gm in 50 mls @ 100 mls/hr IVPB Q6H [facility]AN[facility] PRN Reason: Protocol Last Admin: 03/16/18 13:42 Dose: 100 mls/hr Potassium Chloride (Potassium Chloride 20 Meq/100 Ml) 20 meq in 100 mls @ 50 mls/hr IVPB Q2H [facility]ANJA Stop: 03/16/18 14:59 Last Admin: 03/16/18 12:43 Dose: 50 mls/hr Vancomycin/Sodium Chloride (Vancomycin 1 Gm/Ns 200 Ml) 1 gm in 200 mls @ 133 mls/hr IVPB Q24H TANJA PRN Reason: Protocol Stop: 03/21/18 14:01 Pantoprazole Sodium (Protonix Inj) 40 mg IVP Q12 TANJA Last Admin: 03/16/18 11:08 Dose: 40 mg - Labs Labs: 03/16/18 09:02 03/16/18 09:02 PT 14.3 SECONDS (9.7-12.2) H 03/15/18 14:20 INR 1.3 03/15/18 14:20 APTT 32 SECONDS (21-34) 03/15/18 14:20
[2018-03-16 15:53] LABS: % IRON SATURATION 8.8 (20-55)
[2018-03-16 16:10] LABS: SQUAMOUS EPITHIAL 3 /hpf (0-5); URINE BACTERIA RARE (<OCC); URINE BILIRUBIN NEGATIVE (NEGATIVE); URINE BLOOD 3+ (NEGATIVE); URINE CLARITY Hazy (Clear); URINE COLOR Amber (YELLOW); URINE GLUCOSE (UA) NORMAL (Normal); URINE LEUKOCYTE ESTERASE NEG Leu/uL (Negative); URINE PROTEIN 1+ mg/dL (NEGATIVE); URINE UROBILINOGEN NORMAL mg/dL (0.2-1.0)
[2018-03-16] MEDS: Vancomycin 1 gm/NS 200 ml 1 GM/200 ML BAG IVPB SCH (16:28)
[2018-03-16] MEDS: Norepinephrine 8 MG in Sodium Chloride 0.9% 242 ML IV PRN (18:39)
[2018-03-17] MEDS: Piperacill/Tazo 3.375gm in Dex 3.375 GM/50 ML BAG IVPB SCH ×4 (01:09→19:30)
[2018-03-17 06:23] LABS: BASO % 0.2 % (0.0-2.0); EOS % 0.3 % (0.0-4.0); HEMOGLOBIN 9.7 g/dL (11.0-16.0); LYMPH # 0.8 K/uL (1.0-4.3); LYMPH % 10.5 % (20.0-40.0); MEAN CELL VOLUME 78.4 fL (81.0-99.0); MEAN CORPUSCULAR HEMOGLOBIN 26.7 pg (27.0-31.0); MEAN PLATELET VOLUME 8.8 fL (7.2-11.7); MONO # 0.4 K/uL (0.0-0.8); MONO % 4.6 % (0.0-10.0); NEUT # 6.6 K/uL (1.8-7.0); NEUT % 84.4 % (50.0-75.0); NRBC % 0.1 % (0.0-2.0); RBC 3.65 Mil/uL (3.80-5.20); RED CELL DISTRIBUTION WIDTH 19.1 % (11.5-14.5); WHITE BLOOD COUNT 7.8 K/uL (4.8-10.8)
[2018-03-17] MEDS: Sodium Chloride 0.9% 1,000 ML IV SCH ×2 (06:30→19:15)
[2018-03-17 06:38] LABS: ALB/GLOB RATIO 0.7 (1.0-2.1); ALBUMIN 1.9 g/dL (3.5-5.0); ALT/SGPT 34 U/L (9-52); AST/SGOT 27 U/L (14-36); BLOOD UREA NITROGEN 12 mg/dL (7-17); CALCIUM 7.9 mg/dl (8.6-10.4); GFR NON-AFRICAN AMERICAN > 60
--- NOTE | 2018-03-17 07:39 | CP.PCM.PN ---
Subjective - Date & Time of Evaluation Date of Evaluation: 03/17/18 Time of Evaluation: 07:36 - Subjective Subjective: Vascular surgery progress note for Dr. Isabella Nagel, PGY-2 Pt S & E at bedside Pt aphasic. Tachycardic at bedside. Per nursing- pt with coffee ground emesis out per NGT. No other acute events. Objective - Vital Signs/Intake and Output Vital Signs (last 24 hours): Temp Pulse Resp BP Pulse Ox 97.4 F L 104 H 17 94/52 L 100 03/16/18 12:00 03/17/18 07:00 03/17/18 07:00 03/17/18 06:50 03/17/18 07:00 Intake and Output: 03/17/18 03/17/18 06:59 18:59 Intake Total 1290.0 107.5 Output Total 345 10 Balance 945.0 97.5 - Medications Medications: Current Medications Sodium Chloride (Sodium Chloride 0.9%) 1,000 mls @ 100 mls/hr IV .Q10H [facility] Last Admin: 03/17/18 06:30 Dose: 100 mls/hr Piperacillin Sod/Tazobactam Sod (Zosyn 3.375 Gm Iv Premix) 3.375 gm in 50 mls @ 100 mls/hr IVPB Q6H TANJA PRN Reason: Protocol Last Admin: 03/17/18 06:00 Dose: 100 mls/hr Vancomycin/Sodium Chloride (Vancomycin 1 Gm/Ns 200 Ml) 1 gm in 200 mls @ 133 mls/hr IVPB Q24H [facility]ANJA PRN Reason: Protocol Stop: 03/21/18 14:01 Last Admin: 03/16/18 16:28 Dose: 133 mls/hr Norepinephrine Bitartrate 8 mg (/ Sodium Chloride) 250 mls @ 7.5 mls/hr IV .Q24H PRN; Protocol; 4 MCG/MIN PRN Reason: TITRATE PER MD ORDER Last Admin: 03/16/18 18:39 Dose: 4 mcg/min, 7.5 mls/hr Pantoprazole Sodium (Protonix Inj) 40 mg IVP Q12 TANJA Last Admin: 03/16/18 21:14 Dose: 40 mg - Labs Labs: 03/17/18 06:07 03/17/18 06:07 PT 14.3 SECONDS (9.7-12.2) H 03/15/18 14:20 INR 1.3 03/15/18 14:20 APTT 32 SECONDS (21-34) 03/15/18 14:20 - Constitutional Appears: Non-toxic, No Acute Distress - Head Exam Head Exam: ATRAUMATIC, NORMAL INSPECTION, NORMOCEPHALIC - Eye Exam Eye Exam: EOMI, Normal appearance - ENT Exam ENT Exam: Mucous Membranes Dry - Respiratory Exam Respiratory Exam: NORMAL BREATHING PATTERN - Cardiovascular Exam Cardiovascular Exam: Tachycardia, +S1, +S2 - GI/Abdominal Exam GI & Abdominal Exam: Soft. absent: Distended, Firm, Guarding, Tenderness Additional comments: PEG tube in place, connected to suction, ~100 cc coffee ground drainage to suction cannister - Neurological Exam Neurological Exam: absent: Alert, Awake, Oriented x3 - Psychiatric Exam Additional comments: unable to assess aphasic - Skin Skin Exam: Dry, Intact, Normal Color, Warm Assessment and Plan - Assessment and Plan (Free Text) Assessment: 82F w/B/L PE complicated by GI bleeding/melena Plan: NPO PEG tube to suction Monitor PEG output IVF Abx FU duplex of LE Ef[place] DW Dr. Enriqueta Nagel, PGY-2
[2018-03-17] MEDS ORDERED: Potassium Phosphate 15 MMOLE in Sodium Chloride 0.9% 250 ML IVPB ONE (09:00)
--- NOTE | 2018-03-17 11:35 | VASCLAB ---
Date of service: 03/17/2018 PROCEDURE: Lower Extremity Venous Duplex Exam. HISTORY: Pulmonary Emboli PRIORS: None. TECHNIQUE: Bilateral common femoral, femoral, popliteal and posterior tibial, peroneal and great saphenous veins were evaluated. Flow was assessed with color Doppler, compressibility, assessment of phasic flow and augmentation response. Report prepared by VIOLET Craig FINDINGS: RIGHT: 1. Common Femoral Vein: 1.1. Dressing in the right groin 2. Femoral Vein: 2.1. Compressibility - Fully compressible: Thrombus - None : Flow - Phasic: Augmentation -Normal: Reflux - None. 3. Popliteal Vein: 3.1. Compressibility - Fully compressible: Thrombus - None : Flow - Phasic: Augmentation -Normal: Reflux - None. 4. Posterior Tibial Vein: Unable to examine 5. Peroneal Vein: Unable to examine 6. Great Saphenous Vein: Unable to examine 6.1. . LEFT: 1. Common Femoral Vein: 1.1. Compressibility - Fully compressible: Thrombus - None: Flow - Phasic: Augmentation -Normal: Reflux - None. 2. Femoral Vein: 2.1. Compressibility - Fully compressible: Thrombus - None: Flow - Phasic: Augmentation -Normal: Reflux - None. 3. Popliteal Vein: 3.1. Compressibility - Fully compressible: Thrombus - None : Flow - Phasic: Augmentation -Normal: Reflux - None. 4. Posterior Tibial Vein: 4.1. Compressibility - Fully compressible: Thrombus - None: Flow - Phasic: Augmentation -Normal: Reflux - None. 5. Peroneal Vein: 5.1. Unable to visualize due to swelling. 6. Great Saphenous Vein: 6.1. Not visualized. OTHER FINDINGS: Technically difficult/limited evaluation due to patient limited positioning. Right: Compressible right femoral and popliteal veins. Left: The left peroneal veins are not visualized, due to swelling. IMPRESSION: No evidence of deep or superficial venous thrombosis for the examined veins, in bilateral lower extremities.
--- NOTE | 2018-03-17 12:08 | CP.CCUPN ---
CCU Subjective - Physician Review Subjective (Free Text): 03/17/18 12:11 ICU Progress Note Patient seen and examined at bedside. Patient is nonverbal. Daughter present at bedside. Peg tube producing dark green output. 03/17/18 12:14 CCU Objective - Vital Signs / Intake & Output Vital Signs (Last 4 hours): Vital Signs Temp Pulse Resp BP Pulse Ox 03/17/18 11:40 119 H 14 100 03/17/18 11:30 118 H 15 100 03/17/18 11:20 117 H 15 98 03/17/18 11:10 107 H 14 100 03/17/18 11:00 111 H 15 100 03/17/18 10:50 116 H 15 87/47 L 100 03/17/18 10:40 113 H 14 100 03/17/18 10:30 121 H 15 100 03/17/18 10:20 115 H 13 100 03/17/18 10:10 115 H 14 100 03/17/18 10:00 124 H 20 100 03/17/18 09:50 129 H 17 96/65 L 99 03/17/18 09:40 119 H 16 100 03/17/18 09:30 118 H 15 100 03/17/18 09:20 113 H 14 100 03/17/18 09:10 110 H 18 98 03/17/18 09:00 113 H 17 93 L 03/17/18 08:51 108 H 20 88/44 L 96 03/17/18 08:50 113 H 14 97 03/17/18 08:40 108 H 13 98 03/17/18 08:30 106 H 19 97 03/17/18 08:20 103 H 20 100 03/17/18 08:10 98.3 F 103 H 18 93/51 L 99 Intake and Output (Last 8hrs): Intake & Output 03/16/18 03/17/18 03/17/18 22:59 06:59 14:59 Intake Total 980.0 860.0 548.9 Output Total 260 225 30 Balance 720.0 635.0 518.9 Intake: Intake, IV Amount 980.0 860.0 548.9 Right Distal Port Femoral 700 800 500 right medial port 280.0 60.0 48.9 Oral 0 Output: Gastric Amount 100 100 Stomach 100 100 Urine 160 125 30 Urine, Voided 160 125 30 Stool 0 0 - Physical Exam Physical Exam Limitations: Positive for: Altered Mental Status Head: Positive for: Atraumatic, Normocephalic Pupils: Positive for: PERRL Mouth: Positive for: Moist Mucous Membranes Respiratory/Chest: Positive for: Clear to Auscultation. Negative for: Respiratory Distress, Accessory Muscle Use, Wheezes Cardiovascular: Positive for: Regular Rate and Rhythm, Normal S1, S2 Abdomen: Positive for: Feeding Tubes (Gastrostomy tube on right abdomen, with green output. ), Other (Abdomen soft ). Negative for: Tenderness, Peritoneal Signs Genitourinary/Pelvic Exam: Positive for: Other (Ricardo cath in place draining urine) Upper Extremity: Positive for: NORMAL PULSES. Negative for: Edema Lower Extremity: Positive for: NORMAL PULSES. Negative for: Edema, CALF TENDERNESS Neurological: Positive for: Other (Opens eyes spontaneously, nonverbal, moves right upper and lower extremities well. Does not move left upper and lower extremities ) Skin: Positive for: Warm, Dry - Medications Active Medications: Active Medications Generic Name Dose Route Start Last Admin Trade Name Freq PRN Reason Stop Dose Admin Sodium Chloride 1,000 mls @ 100 mls/hr 03/14/18 09:00 03/17/18 06:30 Sodium Chloride 0.9% IV 100 mls/hr .Q10H TANJA Administration Piperacillin Sod/Tazobactam Sod 3.375 gm in 50 mls @ 100 mls/hr 03/15/18 19: 00 03/17/18 06:00 Zosyn 3.375 Gm Iv Premix IVPB 100 mls/hr Q6H TANJA Administration Protocol Vancomycin/Sodium Chloride 1 gm in 200 mls @ 133 mls/hr 03/16/18 14:00 16:28 Vancomycin 1 Gm/Ns 200 Ml IVPB 03/21/18 14:01 133 mls/hr Q24H TANJA Administration Protocol Norepinephrine Bitartrate 8 mg 250 mls @ 7.5 mls/hr 03/16/18 18:15 03/16/18 18:39 / Sodium Chloride IV 4 mcg/min .Q24H PRN 7.5 mls/hr TITRATE PER MD ORDER Administration Protocol 4 MCG/MIN Potassium Phosphate 15 mmole/ 255 mls @ 42.5 mls/hr 03/17/18 09:00 03/17/18 09:00 Sodium Chloride IVPB 09/17/18 14:59 42.5 mls/hr ONCE ONE Administration Pantoprazole Sodium 40 mg 03/16/18 11:00 03/17/18 10:08 Protonix Inj IVP 40 mg Q12 TANJA Administration - Patient Studies Lab Studies: Microbiology Studies 03/15/18 19:00 Blood Culture - Preliminary Blood-Venous Gram Positive Cocci Gram Stain - Final 03/15/18 19:30 S.aureus & Coag-Neg Staph PNA FISH - Final Blood-Venous Blood Culture - Preliminary Gram Positive Cocci Gram Stain - Final Lab Studies 03/17/18 03/17/18 03/17/18 Range/Units 06:07 06:07 05:13 WBC 7.8 (4.8-10.8) K/uL RBC 3.65 L (3.80-5.20) Mil/uL Hgb 9.7 L (11.0-16.0) g/dL Hct 28.6 L (34.0-47.0) % MCV 78.4 L (81.0-99.0) fL MCH 26.7 L (27.0-31.0) pg MCHC 34.0 (33.0-37.0) g/dL RDW 19.1 H (11.5-14.5) % Plt Count 133 (130-400) K/uL MPV 8.8 (7.2-11.7) fL Neut % (Auto) 84.4 H (50.0-75.0) % Lymph % (Auto) 10.5 L (20.0-40.0) % [place] % (Auto) 4.6 (0.0-10.0) % Eos % (Auto) 0.3 (0.0-4.0) % Baso % (Auto) 0.2 (0.0-2.0) % Neut # (Auto) 6.6 (1.8-7.0) K/uL Lymph # (Auto) 0.8 L (1.0-4.3) K/uL [place] # (Auto) 0.4 (0.0-0.8) K/uL Eos # (Auto) 0.0 (0.0-0.7) K/uL Baso # (Auto) 0.0 (0.0-0.2) K/uL Sodium 140 (132-148) mmol/L Potassium 3.0 L (3.6-5.2) mmol/L Chloride 113 H (98-107) mmol/L Carbon Dioxide 14 L (22-30) mmol/L Anion Gap 15 (10-20) BUN 12 (7-17) mg/dL Creatinine 0.7 (0.7-1.2) mg/dL Est GFR ( Amer) > 60 Est GFR (Non-Af Amer) > 60 POC Glucose (mg/dL) 81 (65-110) mg/dL Random Glucose 81 (65-105) mg/dL Lactic Acid (0.7-2.1) mmol/L Calcium 7.9 L (8.6-10.4) mg/dl Phosphorus 2.4 L (2.5-4.5) mg/dL Magnesium 1.8 (1.6-2.3) mg/dL % Saturation (20-55) Total Bilirubin 2.0 H (0.2-1.3) mg/dL AST 27 (14-36) U/L ALT 34 (9-52) U/L Alkaline Phosphatase 80 (38-126) U/L Total Protein 4.5 L (6.3-8.3) g/dL Albumin 1.9 L D (3.5-5.0) g/dL Globulin 2.7 (2.2-3.9) gm/dL Albumin/Globulin Ratio 0.7 L (1.0-2.1) Urine Color (YELLOW) Urine Clarity (Clear) Urine pH (5.0-8.0) Ur Specific [place] (1.003-1.030) Urine Protein (NEGATIVE) mg/dL Urine Glucose (UA) (Normal) mg/dL Urine Ketones (NEGATIVE) mg/dL Urine Blood (NEGATIVE) Urine Nitrate (NEGATIVE) Urine Bilirubin (NEGATIVE) Urine Urobilinogen (0.2-1.0) mg/dL Ur Leukocyte Esterase (Negative) Lisa/uL Urine WBC (Auto) (0-5) /hpf Urine RBC (Auto) (0-3) /hpf Ur Squamous Epith Cells (0-5) /hpf Urine Bacteria (<OCC) 03/17/18 03/16/18 03/16/18 Range/Units 00:01 16:39 15:41 WBC (4.8-10.8) K/uL RBC (3.80-5.20) Mil/uL Hgb (11.0-16.0) g/dL Hct (34.0-47.0) % MCV (81.0-99.0) fL MCH (27.0-31.0) pg MCHC (33.0-37.0) g/dL RDW (11.5-14.5) % Plt Count (130-400) K/uL MPV (7.2-11.7) fL Neut % (Auto) (50.0-75.0) % Lymph % (Auto) (20.0-40.0) % [place] % (Auto) (0.0-10.0) % Eos % (Auto) (0.0-4.0) % Baso % (Auto) (0.0-2.0) % Neut # (Auto) (1.8-7.0) K/uL Lymph # (Auto) (1.0-4.3) K/uL [place] # (Auto) (0.0-0.8) K/uL Eos # (Auto) (0.0-0.7) K/uL Baso # (Auto) (0.0-0.2) K/uL Sodium (132-148) mmol/L Potassium (3.6-5.2) mmol/L Chloride (98-107) mmol/L Carbon Dioxide (22-30) mmol/L Anion Gap (10-20) BUN (7-17) mg/dL Creatinine (0.7-1.2) mg/dL Est GFR ( Amer) Est GFR (Non-Af Amer) POC Glucose (mg/dL) 99 (65-110) mg/dL Random Glucose (65-105) mg/dL Lactic Acid 1.5 (0.7-2.1) mmol/L Calcium (8.6-10.4) mg/dl Phosphorus (2.5-4.5) mg/dL Magnesium (1.6-2.3) mg/dL % Saturation (20-55) Total Bilirubin (0.2-1.3) mg/dL AST (14-36) U/L ALT (9-52) U/L Alkaline Phosphatase (38-126) U/L Total Protein (6.3-8.3) g/dL Albumin (3.5-5.0) g/dL Globulin (2.2-3.9) gm/dL Albumin/Globulin Ratio (1.0-2.1) Urine Color Jacqueline (YELLOW) Urine Clarity Hazy (Clear) Urine pH 5.0 (5.0-8.0) Ur Specific [place] 1.020 (1.003-1.030) Urine Protein 1+ H (NEGATIVE) mg/dL Urine Glucose (UA) Normal (Normal) mg/dL Urine Ketones Negative (NEGATIVE) mg/dL Urine Blood 3+ H (NEGATIVE) Urine Nitrate Negative (NEGATIVE) Urine Bilirubin Negative (NEGATIVE) Urine Urobilinogen Normal (0.2-1.0) mg/dL Ur Leukocyte Esterase Neg (Negative) Lisa/uL Urine WBC (Auto) 6 H (0-5) /hpf Urine RBC (Auto) 1273 H (0-3) /hpf Ur Squamous Epith Cells 3 (0-5) /hpf Urine Bacteria Rare (<OCC) 03/16/18 03/16/18 Range/Units 11:20 01:32 WBC (4.8-10.8) K/uL RBC (3.80-5.20) Mil/uL Hgb (11.0-16.0) g/dL Hct (34.0-47.0) % MCV (81.0-99.0) fL MCH (27.0-31.0) pg MCHC (33.0-37.0) g/dL RDW (11.5-14.5) % Plt Count (130-400) K/uL MPV (7.2-11.7) fL Neut % (Auto) (50.0-75.0) % Lymph % (Auto) (20.0-40.0) % [place] % (Auto) (0.0-10.0) % Eos % (Auto) (0.0-4.0) % Baso % (Auto) (0.0-2.0) % Neut # (Auto) (1.8-7.0) K/uL Lymph # (Auto) (1.0-4.3) K/uL [place] # (Auto) (0.0-0.8) K/uL Eos # (Auto) (0.0-0.7) K/uL Baso # (Auto) (0.0-0.2) K/uL Sodium (132-148) mmol/L Potassium (3.6-5.2) mmol/L Chloride (98-107) mmol/L Carbon Dioxide (22-30) mmol/L Anion Gap (10-20) BUN (7-17) mg/dL Creatinine (0.7-1.2) mg/dL Est GFR ( Amer) Est GFR (Non-Af Amer) POC Glucose (mg/dL) 165 H (65-110) mg/dL Random Glucose (65-105) mg/dL Lactic Acid (0.7-2.1) mmol/L Calcium (8.6-10.4) mg/dl Phosphorus (2.5-4.5) mg/dL Magnesium (1.6-2.3) mg/dL % Saturation 8.8 L (20-55) Total Bilirubin (0.2-1.3) mg/dL AST (14-36) U/L ALT (9-52) U/L Alkaline Phosphatase (38-126) U/L Total Protein (6.3-8.3) g/dL Albumin (3.5-5.0) g/dL Globulin (2.2-3.9) gm/dL Albumin/Globulin Ratio (1.0-2.1) Urine Color (YELLOW) Urine Clarity (Clear) Urine pH (5.0-8.0) Ur Specific [place] (1.003-1.030) Urine Protein (NEGATIVE) mg/dL Urine Glucose (UA) (Normal) mg/dL Urine Ketones (NEGATIVE) mg/dL Urine Blood (NEGATIVE) Urine Nitrate (NEGATIVE) Urine Bilirubin (NEGATIVE) Urine Urobilinogen (0.2-1.0) mg/dL Ur Leukocyte Esterase (Negative) Lisa/uL Urine WBC (Auto) (0-5) /hpf Urine RBC (Auto) (0-3) /hpf Ur Squamous Epith Cells (0-5) /hpf Urine Bacteria (<OCC) Laboratory Results - last 24 hr 03/16/18 03/16/18 03/16/18 01:32 11:20 15:41 WBC RBC Hgb Hct MCV MCH MCHC RDW Plt Count MPV Neut % (Auto) Lymph % (Auto) [place] % (Auto) Eos % (Auto) Baso % (Auto) Neut # (Auto) Lymph # (Auto) [place] # (Auto) Eos # (Auto) Baso # (Auto) Sodium Potassium Chloride Carbon Dioxide Anion Gap BUN Creatinine Est GFR ( Amer) Est GFR (Non-Af Amer) POC Glucose (mg/dL) 165 H Random Glucose Lactic Acid Calcium Phosphorus Magnesium % Saturation 8.8 L Total Bilirubin AST ALT Alkaline Phosphatase Total Protein Albumin Globulin Albumin/Globulin Ratio Urine Color [place] Urine Clarity Hazy Urine pH 5.0 Ur Specific [place] 1.020 Urine Protein 1+ H Urine Glucose (UA) Normal Urine Ketones Negative Urine Blood 3+ H Urine Nitrate Negative Urine Bilirubin Negative Urine Urobilinogen Normal Ur Leukocyte Esterase Neg Urine WBC (Auto) 6 H Urine RBC (Auto) 1273 H Ur Squamous Epith Cells 3 Urine Bacteria Rare 03/16/18 03/17/18 03/17/18 16:39 00:01 05:13 WBC RBC Hgb Hct MCV MCH MCHC RDW Plt Count MPV Neut % (Auto) Lymph % (Auto) [place] % (Auto) Eos % (Auto) Baso % (Auto) Neut # (Auto) Lymph # (Auto) [place] # (Auto) Eos # (Auto) Baso # (Auto) Sodium Potassium Chloride Carbon Dioxide Anion Gap BUN Creatinine Est GFR ( Amer) Est GFR (Non-Af Amer) POC Glucose (mg/dL) 99 81 Random Glucose Lactic Acid 1.5 Calcium Phosphorus Magnesium % Saturation Total Bilirubin AST ALT Alkaline Phosphatase Total Protein Albumin Globulin Albumin/Globulin Ratio Urine Color Urine Clarity Urine pH Ur Specific [place] Urine Protein Urine Glucose (UA) Urine Ketones Urine Blood Urine Nitrate Urine Bilirubin Urine Urobilinogen Ur Leukocyte Esterase Urine WBC (Auto) Urine RBC (Auto) Ur Squamous Epith Cells Urine Bacteria 03/17/18 03/17/18 06:07 06:07 WBC 7.8 RBC 3.65 L Hgb 9.7 L Hct 28.6 L MCV 78.4 L MCH 26.7 L MCHC 34.0 RDW 19.1 H Plt Count 133 MPV 8.8 Neut % (Auto) 84.4 H Lymph % (Auto) 10.5 L [place] % (Auto) 4.6 Eos % (Auto) 0.3 Baso % (Auto) 0.2 Neut # (Auto) 6.6 Lymph # (Auto) 0.8 L [place] # (Auto) 0.4 Eos # (Auto) 0.0 Baso # (Auto) 0.0 Sodium 140 Potassium 3.0 L Chloride 113 H Carbon Dioxide 14 L Anion Gap 15 BUN 12 Creatinine 0.7 Est GFR ( Amer) > 60 Est GFR (Non-Af Amer) > 60 POC Glucose (mg/dL) Random Glucose 81 Lactic Acid Calcium 7.9 L Phosphorus 2.4 L Magnesium 1.8 % Saturation Total Bilirubin 2.0 H AST 27 ALT 34 Alkaline Phosphatase 80 Total Protein 4.5 L Albumin 1.9 L D Globulin 2.7 Albumin/Globulin Ratio 0.7 L Urine Color Urine Clarity Urine pH Ur Specific [place] Urine Protein Urine Glucose (UA) Urine Ketones Urine Blood Urine Nitrate Urine Bilirubin Urine Urobilinogen Ur Leukocyte Esterase Urine WBC (Auto) Urine RBC (Auto) Ur Squamous Epith Cells Urine Bacteria Fingerstick Blood Sugar Results: 99 Review of Systems - Review of Systems Systems not reviewed;Unavailable: Altered Mental Status Critical Care Progress Note - Nutrition Nutrition: Nutrition Category Date Time Status NPO Diet [DIET] Diets 03/15/18 Breakfast Active Assessment/Plan - Assessment and Plan (Free Text) Assessment: 82 year old female with history of HTN, HLD, dementia, seizure disorder who was initially admitted for altered mental status, with decreased PO intake and weight loss. Patient was found to have a UTI. Patient had a peg tube placed on . Unable to tolerate feeds with vomiting. Subsequent CT revealed large volume pneumoperitoneum and small bilateral PE with pulmonary vascular congestion. Plan: Neuro: Hx of dementia, altered at baseline Opens eyes spontaneously Cardiovascular Currently on Levophed @ 6mcg/hr, with systolic BP in 80s Right femoral TLC Slightly tachycardic at 115s Pulmonary 03/16 Dopplers: negative for thrombus 03/15 CT chest: bilateral PE with pulmonary vascular congestion. Oxygenating well on NC. GI s/p PEG on 03/12/1803/15 Abdomen/pelvis CT: Recent gastrostomy tube with large volume pneumoperitoneum and thickening of distal stomach/duodenum 03/15 Abdomen XR: large volume pneumoperitoneum 03/14 Abdomen/pelvis CT without contrast: Gallstone without CT evidence of acute cholecystitis. Moderate amount of free air noted in the anterior aspect of the upper abdomen likely related to recent insertion of G tube. The possibility of air lead around the G tube is not totally excluded. Mildly distended large bowel may represent mild bowel ileus. No evidence of bowel obstrution. No evidence of nephrolithiasis or hydronephrosis. Small right pleural effuison and mild cardiomegaly. Started on PPN @ 42cc/hr GI Dr. Lucero/Tylor consulted Surgery Dr. Robison consulted Renal Continue to monitor electrolytes, replete as necessary I &Os, currently in + balance NS @ 100cc/hr IV Endo maintain euglycemia ID UA 2+ LE, Urine cultures + Enterococcus fecalis Blood cultures prelim + GP cocci Zosyn 3.375g IV, Vancomycin 1g IV Heme/Onc H/H 9.7/28.6 White count 7.8 Platelets 133 Continue to monitor Patient is s/p 1 unit PRBCs on 03/16 PPX: Protonix, SCDs. Case discussed with Dr. Chavez
[2018-03-17] MEDS: Vancomycin 1 gm/NS 200 ml 1 GM/200 ML BAG IVPB SCH (14:00)
--- NOTE | 2018-03-17 15:27 | PN ---
DATE: 03/17/2018 LOCATION: ICU 1. SUBJECTIVE: This is an 82-year-old female seen and examined in rounds with the intensive care staff without reported significant clinical changes. No reported active bleeding, but reported for gram-positive cocci in the blood as per the record. The entire chart is reviewed including but not limited to the most recent lab and radiology study results, current and the previous medication list, current and the previous medical events. Case discussed with the staff at length. Today's lab showed hemoglobin 9.7, hematocrit 28.6 with normal white blood cells and platelet count with potassium 3, CO2 content of 14 indicative of metabolic acidosis, calcium 7.9, phosphorus 2.4 with total bilirubin of 2, albumin 1.9 with total protein 5.4 as the patient's feeding had been on hold. PHYSICAL EXAMINATION: GENERAL: An 82-year-old female. VITAL SIGNS: Afebrile with heart rate of 108, blood pressure of 94/52, respiratory rate of 14 to 16. HEENT: Showed mildly pale, dry oral mucous membrane. Slightly icteric sclerae bilaterally. HEART: Positive S1 and S2. ABDOMEN: Soft. Bowel sounds are present. No mass or organomegaly. No rebound tenderness or guarding. It has to be mentioned that the PEG tube is in place without any evidence of anterior abdominal wall cellulitis. Abdomen is soft, never was distended with positive bowel sounds. Reported active bleeding this morning as per the staff during the rounds. EXTREMITIES: With mild lower extremity edematous changes. IMPRESSION: 1. Malnutrition. 2. Anemia. 3. Status post percutaneous endoscopic gastrostomy insertion. SUGGESTIONS: 1. Continue current management. 2. Treat any underlying possible septicemia and/or possible bacteremia as the blood culture initial report was positive. 3. Further recommendation to follow. Derek Chapa MD
[2018-03-17] MEDS ORDERED: PPN IV ONE (18:00)
[2018-03-17] MEDS ORDERED: Fat Emulsion 20% IV 250 ML IV SCH (18:00)
[2018-03-17] MEDS: Norepinephrine 8 MG in Sodium Chloride 0.9% 242 ML IV PRN (23:15)
[2018-03-18] MEDS: Piperacill/Tazo 3.375gm in Dex 3.375 GM/50 ML BAG IVPB SCH ×4 (00:45→18:11)
[2018-03-18] MEDS: Sodium Chloride 0.9% 1,000 ML IV SCH (03:15)
[2018-03-18 05:33] LABS: HEMOGLOBIN 10.6 g/dL (11.0-16.0); MEAN CORPUSCULAR HEMOGLOBIN 26.7 pg (27.0-31.0); MEAN CORPUSCULAR HGB CONC 34.2 g/dL (33.0-37.0); MEAN PLATELET VOLUME 8.7 fL (7.2-11.7); RBC 3.99 Mil/uL (3.80-5.20); RED CELL DISTRIBUTION WIDTH 19.6 % (11.5-14.5); WHITE BLOOD COUNT 9.7 K/uL (4.8-10.8)
[2018-03-18 05:52] LABS: ALB/GLOB RATIO 0.7 (1.0-2.1); ALBUMIN 1.9 g/dL (3.5-5.0); ALT/SGPT 33 U/L (9-52); AST/SGOT 31 U/L (14-36); BLOOD UREA NITROGEN 12 mg/dL (7-17); CALCIUM 7.8 mg/dl (8.6-10.4); GFR NON-AFRICAN AMERICAN > 60
[2018-03-18 08:32] LABS: EOS # 0.1 K/uL (0.0-0.7); LYMPH # 1.3 K/uL (1.0-4.3); MONO # 0.3 K/uL (0.0-0.8)
--- NOTE | 2018-03-18 08:45 | CP.CCUPN ---
<Italo Sadler - Last Filed: 03/18/18 13:52> CCU Subjective - Physician Review Subjective (Free Text): ICU Progress Note Patient seen and examined at bedside. Patient is nonverbal. Daughter present at bedside. Peg tube producing dark green/black output. CCU Objective - Vital Signs / Intake & Output Vital Signs (Last 4 hours): Vital Signs Temp Pulse Resp BP Pulse Ox 03/18/18 08:20 88 13 100 03/18/18 08:10 84 13 100 03/18/18 08:00 98.5 F 03/18/18 07:50 108/50 L 03/18/18 07:30 93 H 14 98 03/18/18 07:20 96 H 15 96 03/18/18 07:10 105 H 17 97 03/18/18 07:00 97 H 18 96 03/18/18 06:50 108 H 18 111/56 L 97 03/18/18 06:40 118 H 18 98 03/18/18 06:30 93 H 16 97 03/18/18 06:20 104 H 17 97 03/18/18 06:10 96 H 17 97 03/18/18 06:00 95 H 15 98 03/18/18 05:50 113 H 16 106/66 96 03/18/18 05:40 88 15 97 03/18/18 05:30 85 13 100 03/18/18 05:20 85 12 100 03/18/18 05:10 88 14 99 03/18/18 05:00 101 H 18 99 03/18/18 04:50 98 H 18 111/63 96 Intake and Output (Last 8hrs): Intake & Output 03/17/18 03/18/18 03/18/18 22:59 06:59 14:59 Intake Total 1205.4 1512.0 297.1 Output Total 75 105 5 Balance 1130.4 1407.0 292.1 Intake: IV 250 Intake, IV Amount 1205.4 1262.0 297.1 Right Distal Port Femoral 800 700 200 right groin proximal 210 336 84 right medial port 90.4 79.0 13.1 side port of right prox. 105 147 0 TLC Oral 0 0 0 Output: Gastric Amount 20 40 Stomach 20 40 Urine 55 65 5 Urine, Voided 55 65 5 - Physical Exam Head: Positive for: Atraumatic, Normocephalic Pupils: Positive for: PERRL Mouth: Positive for: Moist Mucous Membranes Respiratory/Chest: Positive for: Clear to Auscultation. Negative for: Respirat ory Distress, Accessory Muscle Use, Wheezes Cardiovascular: Positive for: Regular Rate and Rhythm, Normal S1, S2 Abdomen: Positive for: Feeding Tubes (Gastrostomy tube on right abdomen, with green output. ), Other (Abdomen soft ). Negative for: Tenderness, Peritoneal Signs Genitourinary/Pelvic Exam: Positive for: Other (Ricardo cath in place draining urine) Upper Extremity: Positive for: NORMAL PULSES. Negative for: Edema Lower Extremity: Positive for: NORMAL PULSES. Negative for: Edema, CALF TENDERNESS Neurological: Positive for: Other (Opens eyes spontaneously, nonverbal, moves right upper and lower extremities well. Does not move left upper and lower extremities ) Skin: Positive for: Warm, Dry - Medications Active Medications: Active Medications Generic Name Dose Route Start Last Admin Trade Name Freq PRN Reason Stop Dose Admin Albumin Human 12.5 gm 03/18/18 10:00 Albumin Human 25% (12.5 Gm/50 Ml) IV 03/20/18 10:01 Q12 TANJA Piperacillin Sod/Tazobactam Sod 3.375 gm in 50 mls @ 100 mls/hr 03/15/18 19:00 03/18/18 06:00 Zosyn 3.375 Gm Iv Premix IVPB 100 mls/hr Q6H TANJA Administration Protocol Vancomycin/Sodium Chloride 1 gm in 200 mls @ 133 mls/hr 03/16/18 14:00 03/17/18 14:00 Vancomycin 1 Gm/Ns 200 Ml IVPB 03/21/18 14:01 133 mls/hr Q24H TANJA Administration Protocol Norepinephrine Bitartrate 8 mg 250 mls @ 7.5 mls/hr 03/16/18 18:15 03/17/18 23:15 / Sodium Chloride IV 6.02 mcg/min .Q24H PRN 11.3 mls/hr TITRATE PER MD ORDER Administration Protocol 4 MCG/MIN Multivitamins/Vitamin C 10 ml/ 1,011 mls @ 42 mls/hr 03/17/18 18:00 03/17/18 17:46 Chromium/Copper/Manganese/ IV 03/18/18 17:59 42 mls/hr Zinc 1 ml/ Amino Acids .Q24H ONE Administration Fat Emulsion Intravenous 250 mls @ 21 mls/hr 03/17/18 18:00 03/17/18 17:45 Intralipid 20% IV 03/23/18 18:01 21 mls/hr MWF@1800 TANJA Administration Potassium Chloride 20 meq in 100 mls @ 50 mls/hr 03/18/18 08:00 03/18/18 07:44 Potassium Chloride 20 Meq/100 Ml IVPB 03/18/18 11:59 50 mls/hr Q2 TANJA Administration Pantoprazole Sodium 40 mg 03/16/18 11:00 03/17/18 21:47 Protonix Inj IVP 40 mg Q12 TAJNA Administration - Patient Studies Lab Studies: Microbiology Studies 03/16/18 15:41 Urine Culture - Final Urine,Ricardo No Growth (<1,000 CFU/ML) 03/15/18 19:30 S.aureus & Coag-Neg Staph PNA FISH - Final Blood-Venous Blood Culture - Preliminary Enterococcus Faecalis Gram Stain - Final 03/15/18 19:00 Blood Culture - Preliminary Blood-Venous Gram Positive Cocci Gram Stain - Final Lab Studies 03/18/18 03/18/18 03/18/18 Range/Units 06:15 05:22 05:22 WBC 9.7 (4.8-10.8) K/uL RBC 3.99 (3.80-5.20) Mil/uL Hgb 10.6 L (11.0-16.0) g/dL Hct 31.1 L (34.0-47.0) % MCV 78.0 L (81.0-99.0) fL MCH 26.7 L (27.0-31.0) pg MCHC 34.2 (33.0-37.0) g/dL RDW 19.6 H (11.5-14.5) % Plt Count 139 (130-400) K/uL MPV 8.7 (7.2-11.7) fL Neut % (Auto) 83.0 H (50.0-75.0) % Lymph % (Auto) 13.0 L (20.0-40.0) % Powell % (Auto) 3.0 (0.0-10.0) % Eos % (Auto) 1.0 (0.0-4.0) % Baso % (Auto) 0.0 (0.0-2.0) % Neut # (Auto) 8.0 H (1.8-7.0) K/uL Lymph # (Auto) 1.3 (1.0-4.3) K/uL Powell # (Auto) 0.3 (0.0-0.8) K/uL Eos # (Auto) 0.1 (0.0-0.7) K/uL Baso # (Auto) 0.0 (0.0-0.2) K/uL Sodium 140 (132-148) mmol/L Potassium 2.9 L (3.6-5.2) mmol/L Chloride 115 H (98-107) mmol/L Carbon Dioxide 14 L (22-30) mmol/L Anion Gap 14 (10-20) BUN 12 (7-17) mg/dL Creatinine 0.7 (0.7-1.2) mg/dL Est GFR ( Amer) > 60 Est GFR (Non-Af Amer) > 60 POC Glucose (mg/dL) 151 H (65-110) mg/dL Random Glucose 143 H (65-105) mg/dL Calcium 7.8 L (8.6-10.4) mg/dl Phosphorus 3.5 (2.5-4.5) mg/dL Magnesium 1.7 (1.6-2.3) mg/dL Total Bilirubin 1.6 H (0.2-1.3) mg/dL AST 31 (14-36) U/L ALT 33 (9-52) U/L Alkaline Phosphatase 124 (38-126) U/L Total Protein 4.8 L (6.3-8.3) g/dL Albumin 1.9 L (3.5-5.0) g/dL Globulin 2.9 (2.2-3.9) gm/dL Albumin/Globulin Ratio 0.7 L (1.0-2.1) 03/17/18 03/17/18 03/17/18 Range/Units 23:52 18:08 12:00 WBC (4.8-10.8) K/uL RBC (3.80-5.20) Mil/uL Hgb (11.0-16.0) g/dL Hct (34.0-47.0) % MCV (81.0-99.0) fL MCH (27.0-31.0) pg MCHC (33.0-37.0) g/dL RDW (11.5-14.5) % Plt Count (130-400) K/uL MPV (7.2-11.7) fL Neut % (Auto) (50.0-75.0) % Lymph % (Auto) (20.0-40.0) % Powell % (Auto) (0.0-10.0) % Eos % (Auto) (0.0-4.0) % Baso % (Auto) (0.0-2.0) % Neut # (Auto) (1.8-7.0) K/uL Lymph # (Auto) (1.0-4.3) K/uL Powell # (Auto) (0.0-0.8) K/uL Eos # (Auto) (0.0-0.7) K/uL Baso # (Auto) (0.0-0.2) K/uL Sodium (132-148) mmol/L Potassium (3.6-5.2) mmol/L Chloride (98-107) mmol/L Carbon Dioxide (22-30) mmol/L Anion Gap (10-20) BUN (7-17) mg/dL Creatinine (0.7-1.2) mg/dL Est GFR ( Amer) Est GFR (Non-Af Amer) POC Glucose (mg/dL) 123 H 86 101 (65-110) mg/dL Random Glucose (65-105) mg/dL Calcium (8.6-10.4) mg/dl Phosphorus (2.5-4.5) mg/dL Magnesium (1.6-2.3) mg/dL Total Bilirubin (0.2-1.3) mg/dL AST (14-36) U/L ALT (9-52) U/L Alkaline Phosphatase (38-126) U/L Total Protein (6.3-8.3) g/dL Albumin (3.5-5.0) g/dL Globulin (2.2-3.9) gm/dL Albumin/Globulin Ratio (1.0-2.1) Laboratory Results - last 24 hr 03/17/18 03/17/18 03/17/18 12:00 18:08 23:52 WBC RBC Hgb Hct MCV MCH MCHC RDW Plt Count MPV Neut % (Auto) Lymph % (Auto) Powell % (Auto) Eos % (Auto) Baso % (Auto) Neut # (Auto) Lymph # (Auto) Powell # (Auto) Eos # (Auto) Baso # (Auto) Sodium Potassium Chloride Carbon Dioxide Anion Gap BUN Creatinine Est GFR ( Amer) Est GFR (Non-Af Amer) POC Glucose (mg/dL) 101 86 123 H Random Glucose Calcium Phosphorus Magnesium Total Bilirubin AST ALT Alkaline Phosphatase Total Protein Albumin Globulin Albumin/Globulin Ratio 03/18/18 03/18/18 03/18/18 05:22 05:22 06:15 WBC 9.7 RBC 3.99 Hgb 10.6 L Hct 31.1 L MCV 78.0 L MCH 26.7 L MCHC 34.2 RDW 19.6 H Plt Count 139 MPV 8.7 Neut % (Auto) 83.0 H Lymph % (Auto) 13.0 L Powell % (Auto) 3.0 Eos % (Auto) 1.0 Baso % (Auto) 0.0 Neut # (Auto) 8.0 H Lymph # (Auto) 1.3 Powell # (Auto) 0.3 Eos # (Auto) 0.1 Baso # (Auto) 0.0 Sodium 140 Potassium 2.9 L Chloride 115 H Carbon Dioxide 14 L Anion Gap 14 BUN 12 Creatinine 0.7 Est GFR ( Amer) > 60 Est GFR (Non-Af Amer) > 60 POC Glucose (mg/dL) 151 H Random Glucose 143 H Calcium 7.8 L Phosphorus 3.5 Magnesium 1.7 Total Bilirubin 1.6 H AST 31 ALT 33 Alkaline Phosphatase 124 Total Protein 4.8 L Albumin 1.9 L Globulin 2.9 Albumin/Globulin Ratio 0.7 L Fingerstick Blood Sugar Results: 151 Review of Systems - Review of Systems Systems not reviewed;Unavailable: Altered Mental Status Critical Care Progress Note - Nutrition Nutrition: Nutrition Category Date Time Status NPO Diet [DIET] Diets 03/15/18 Breakfast Active Assessment/Plan - Assessment and Plan (Free Text) Assessment: 82 year old female with history of HTN, HLD, dementia, seizure disorder who was initially admitted for altered mental status, with decreased PO intake and weight loss. Patient was found to have a UTI. Patient had a peg tube placed on 03/12. Unable to tolerate feeds with vomiting. Subsequent CT revealed large volume pneumoperitoneum and small bilateral PE with pulmonary vascular congestion. Code sepsis was called after patient was noted to have elevated lactate with hypotension. Plan: Neuro: Hx of dementia, altered at baseline Opens eyes spontaneously Nonverbal at baseline Cardiovascular Currently on Levophed Right femoral TLC Slightly tachycardic at 115s Pulmonary 03/16 Dopplers: negative for thrombus 03/15 CT chest: bilateral PE with pulmonary vascular congestion. Oxygenating well on NC. GI s/p PEG on 03/12/[address] Naranjo 03/15 Abdomen/pelvis CT: Recent gastrostomy tube with large volume pneumoperitoneum and thickening of distal stomach/duodenum 03/15 Abdomen XR: large volume pneumoperitoneum 03/14 Abdomen/pelvis CT without contrast: Gallstone without CT evidence of acute cholecystitis. Moderate amount of free air noted in the anterior aspect of the upper abdomen likely related to recent insertion of G tube. The possibility of air lead around the G tube is not totally excluded. Mildly distended large bowel may represent mild bowel ileus. No evidence of bowel obstrution. No evidence of nephrolithiasis or hydronephrosis. Small right pleural effuison and mild cardiomegaly. Started on PPN @ 42cc/hr Restarted on feeds, monitor for emesis. GI Dr. Lucero/Tylor consulted Surgery Dr. Robison consulted Renal Continue to monitor electrolytes, replete as necessary KCl 2 bags ordered I &Os, currently in + balance NS @ 100cc/hr IV Albumin 12.5mg Q12 IV Endo maintain euglycemia ID UA 2+ LE, Urine cultures + Enterococcus fecalis, repeat urine cultures negative Blood cultures prelim + GP cocci and Enterococcus fecalis Zosyn 3.375g IV, Vancomycin 1g IV Heme/Onc H/H 10.6/31.1 White count 9.7 Platelets 139 Continue to monitor Patient is s/p 1 unit PRBCs on 03/16 PPX: Protonix, SCDs. Case discussed with Dr. Campoverde <Javier Campoverde S - Last Filed: 03/18/18 18:42> CCU Subjective - Physician Review Critical Care Time Spent (in minutes): 30 CCU Objective - Vital Signs / Intake & Output Vital Signs (Last 4 hours): Vital Signs Temp Pulse Resp BP Pulse Ox 03/18/18 18:20 101 H 15 100 03/18/18 18:18 91 H 16 89/47 L 100 03/18/18 18:10 92 H 16 100 03/18/18 18:00 81 13 100 03/18/18 17:50 89 13 82/40 L 100 03/18/18 17:40 95 H 100 03/18/18 17:30 96 H 16 99 03/18/18 17:20 98 H 16 100 03/18/18 17:10 86 13 100 03/18/18 17:00 85 13 100 03/18/18 16:51 98/42 L 03/18/18 16:50 92 H 14 100 03/18/18 16:30 89 13 100 03/18/18 16:20 94 H 13 100 03/18/18 16:10 89 13 98 03/18/18 16:00 97.9 F 88 14 100 03/18/18 15:50 104/56 L 03/18/18 15:40 93 H 15 100 03/18/18 15:30 91 H 14 100 03/18/18 15:00 92 H 15 100 03/18/18 14:50 94 H 15 90/50 L 100 Intake and Output (Last 8hrs): Intake & Output 03/18/18 03/18/18 03/18/18 06:59 14:59 22:59 Intake Total 1512.0 1973.7 420.0 Output Total 105 205 75 Balance 1407.0 1768.7 345.0 Intake: IV 250 150 35 Intake, IV Amount 1262.0 1823.7 385.0 Right Distal Port Femoral 700 1450 200 right groin proximal 336 336 168 right medial port 79.0 37.7 17.0 side port of right prox. 147 0 TLC Oral 0 0 Output: Gastric Amount 40 Stomach 40 Urine 65 205 75 Urine, Voided 65 205 75 Other: # Bowel Movements 1 - Medications Active Medications: Active Medications Generic Name Dose Route Start Last Admin Trade Name Freq PRN Reason Stop Dose Admin Albumin Human 12.5 gm 03/18/18 10:00 03/18/18 10:27 Albumin Human 25% (12.5 Gm/50 Ml) IV 03/20/18 10:01 12.5 gm Q12 TANJA Administration Piperacillin Sod/Tazobactam Sod 3.375 gm in 50 mls @ 100 mls/hr 03/15/18 19:00 03/18/18 18:11 Zosyn 3.375 Gm Iv Premix IVPB 100 mls/hr Q6H [facility] Administration Protocol Vancomycin/Sodium Chloride 1 gm in 200 mls @ 133 mls/hr 03/16/18 14:00 03/18/18 15:00 Vancomycin 1 Gm/Ns 200 Ml IVPB 03/21/18 14:01 133 mls/hr Q24H [facility] Administration Protocol Norepinephrine Bitartrate 8 mg 250 mls @ 7.5 mls/hr 03/16/18 18:15 03/18/18 18:25 / Sodium Chloride IV 3 mcg/min .Q24H PRN 5.62 mls/hr TITRATE PER MD ORDER Titration Protocol 4 MCG/MIN Multivitamins/Vitamin C 10 ml/ 1,011 mls @ 42 mls/hr 03/18/18 18:00 03/18/18 18:10 Chromium/Copper/Manganese/ IV 03/19/18 17:59 42 mls/hr Zinc 1 ml/ Amino Acids .Q24H ONE Administration Fat Emulsion Intravenous 250 mls @ 42 mls/hr 03/19/18 18:00 Intralipid 20% IV 03/23/18 18:01 MWF@1800 [facility] Pantoprazole Sodium 40 mg 03/16/18 11:00 03/18/18 10:26 Protonix Inj IVP 40 mg Q12 TANJA Administration - Patient Studies Lab Studies: Microbiology Studies 03/15/18 19:00 Blood Culture - Preliminary Blood-Venous Coagulase Neg Staphylococcus Gram Positive Jaspreet Gram Stain - Final 03/16/18 06:57 MRSA Culture (Admit) - Final Naris MRSA NOT DETECTED 03/15/18 19:30 S.aureus & Coag-Neg Staph PNA FISH - Final Blood-Venous Blood Culture - Final Enterococcus Faecalis Gram Stain - Final 03/16/18 15:41 Urine Culture - Final Urine,Ricardo No Growth (<1,000 CFU/ML) Lab Studies 03/18/18 03/18/18 03/18/18 Range/Units 17:32 11:31 06:15 WBC (4.8-10.8) K/uL RBC (3.80-5.20) Mil/uL Hgb (11.0-16.0) g/dL Hct (34.0-47.0) % MCV (81.0-99.0) fL MCH (27.0-31.0) pg MCHC (33.0-37.0) g/dL RDW (11.5-14.5) % Plt Count (130-400) K/uL MPV (7.2-11.7) fL Neut % (Auto) (50.0-75.0) % Lymph % (Auto) (20.0-40.0) % Powell % (Auto) (0.0-10.0) % Eos % (Auto) (0.0-4.0) % Baso % (Auto) (0.0-2.0) % Neut # (Auto) (1.8-7.0) K/uL Lymph # (Auto) (1.0-4.3) K/uL Powell # (Auto) (0.0-0.8) K/uL Eos # (Auto) (0.0-0.7) K/uL Baso # (Auto) (0.0-0.2) K/uL Sodium (132-148) mmol/L Potassium (3.6-5.2) mmol/L Chloride (98-107) mmol/L Carbon Dioxide (22-30) mmol/L Anion Gap (10-20) BUN (7-17) mg/dL Creatinine (0.7-1.2) mg/dL Est GFR ( Amer) Est GFR (Non-Af Amer) POC Glucose (mg/dL) 167 H 179 H 151 H (65-110) mg/dL Random Glucose (65-105) mg/dL Calcium (8.6-10.4) mg/dl Phosphorus (2.5-4.5) mg/dL Magnesium (1.6-2.3) mg/dL Total Bilirubin (0.2-1.3) mg/dL AST (14-36) U/L ALT (9-52) U/L Alkaline Phosphatase (38-126) U/L Total Protein (6.3-8.3) g/dL Albumin (3.5-5.0) g/dL Globulin (2.2-3.9) gm/dL Albumin/Globulin Ratio (1.0-2.1) 03/18/18 03/18/18 03/17/18 Range/Units 05:22 05:22 23:52 WBC 9.7 (4.8-10.8) K/uL RBC 3.99 (3.80-5.20) Mil/uL Hgb 10.6 L (11.0-16.0) g/dL Hct 31.1 L (34.0-47.0) % MCV 78.0 L (81.0-99.0) fL MCH 26.7 L (27.0-31.0) pg MCHC 34.2 (33.0-37.0) g/dL RDW 19.6 H (11.5-14.5) % Plt Count 139 (130-400) K/uL MPV 8.7 (7.2-11.7) fL Neut % (Auto) 83.0 H (50.0-75.0) % Lymph % (Auto) 13.0 L (20.0-40.0) % Powell % (Auto) 3.0 (0.0-10.0) % Eos % (Auto) 1.0 (0.0-4.0) % Baso % (Auto) 0.0 (0.0-2.0) % Neut # (Auto) 8.0 H (1.8-7.0) K/uL Lymph # (Auto) 1.3 (1.0-4.3) K/uL Powell # (Auto) 0.3 (0.0-0.8) K/uL Eos # (Auto) 0.1 (0.0-0.7) K/uL Baso # (Auto) 0.0 (0.0-0.2) K/uL Sodium 140 (132-148) mmol/L Potassium 2.9 L (3.6-5.2) mmol/L Chloride 115 H (98-107) mmol/L Carbon Dioxide 14 L (22-30) mmol/L Anion Gap 14 (10-20) BUN 12 (7-17) mg/dL Creatinine 0.7 (0.7-1.2) mg/dL Est GFR ( Amer) > 60 Est GFR (Non-Af Amer) > 60 POC Glucose (mg/dL) 123 H (65-110) mg/dL Random Glucose 143 H (65-105) mg/dL Calcium 7.8 L (8.6-10.4) mg/dl Phosphorus 3.5 (2.5-4.5) mg/dL Magnesium 1.7 (1.6-2.3) mg/dL Total Bilirubin 1.6 H (0.2-1.3) mg/dL AST 31 (14-36) U/L ALT 33 (9-52) U/L Alkaline Phosphatase 124 (38-126) U/L Total Protein 4.8 L (6.3-8.3) g/dL Albumin 1.9 L (3.5-5.0) g/dL Globulin 2.9 (2.2-3.9) gm/dL Albumin/Globulin Ratio 0.7 L (1.0-2.1) Laboratory Results - last 24 hr 03/17/18 03/18/18 03/18/18 23:52 05:22 05:22 WBC 9.7 RBC 3.99 Hgb 10.6 L Hct 31.1 L MCV 78.0 L MCH 26.7 L MCHC 34.2 RDW 19.6 H Plt Count 139 MPV 8.7 Neut % (Auto) 83.0 H Lymph % (Auto) 13.0 L Powell % (Auto) 3.0 Eos % (Auto) 1.0 Baso % (Auto) 0.0 Neut # (Auto) 8.0 H Lymph # (Auto) 1.3 Powell # (Auto) 0.3 Eos # (Auto) 0.1 Baso # (Auto) 0.0 Sodium 140 Potassium 2.9 L Chloride 115 H Carbon Dioxide 14 L Anion Gap 14 BUN 12 Creatinine 0.7 Est GFR ( Amer) > 60 Est GFR (Non-Af Amer) > 60 POC Glucose (mg/dL) 123 H Random Glucose 143 H Calcium 7.8 L Phosphorus 3.5 Magnesium 1.7 Total Bilirubin 1.6 H AST 31 ALT 33 Alkaline Phosphatase 124 Total Protein 4.8 L Albumin 1.9 L Globulin 2.9 Albumin/Globulin Ratio 0.7 L 03/18/18 03/18/18 03/18/18 06:15 11:31 17:32 WBC RBC Hgb Hct MCV MCH MCHC RDW Plt Count MPV Neut % (Auto) Lymph % (Auto) Powell % (Auto) Eos % (Auto) Baso % (Auto) Neut # (Auto) Lymph # (Auto) Powell # (Auto) Eos # (Auto) Baso # (Auto) Sodium Potassium Chloride Carbon Dioxide Anion Gap BUN Creatinine Est GFR ( Amer) Est GFR (Non-Af Amer) POC Glucose (mg/dL) 151 H 179 H 167 H Random Glucose Calcium Phosphorus Magnesium Total Bilirubin AST ALT Alkaline Phosphatase Total Protein Albumin Globulin Albumin/Globulin Ratio Critical Care Progress Note - Nutrition Nutrition: Nutrition Category Date Time Status NPO Diet [DIET] Diets 03/15/18 Breakfast Active Attending/Attestation - Attestation I have personally seen and examined this patient.: Yes I have fully participated in the care of the patient.: Yes I have reviewed all pertinent clinical information: Yes Notes (Text): 03/18/18 18:42 patient seen and examined in the intensive care unit. Continue IV antibiotics Follow-up chest x-ray
[2018-03-18] MEDS ORDERED: PPN IV SCH (09:30)
[2018-03-18] MEDS ORDERED: Sodium Chloride 0.9% 1,000 ML IV ONE (09:48)
[2018-03-18] MEDS: Albumin Human 25% (12.5 gm/50 ml) IV SCH ×2 (10:27→21:51)
[2018-03-18] MEDS: Vancomycin 1 gm/NS 200 ml 1 GM/200 ML BAG IVPB SCH (15:00)
--- NOTE | 2018-03-18 15:01 | PN ---
DATE: 03/18/2018 LOCATION: ICU 1. SUBJECTIVE: This is an 82-year-old female seen and examined in rounds. Case discussed with the staff at length. The entire chart is reviewed including but not limited to the most recent lab and radiology study results, current and the previous medication list, current and the previous medical events. The patient reported to be on Levophed IV drip as required. No reported active bleeding and PEG tube is still in place without evidence of anterior abdominal wall cellulitis. The entire chart is reviewed including but not limited to the most recent lab and radiology study results, current and the previous medication list, current and the previous medical events. The patient still has low indices indicative of hypochromic microcytic anemia, potassium 2.9 with CO2 content of 14 indicative of metabolic acidosis. Blood glucose 151, calcium 7.8, total bilirubin 1.6 with albumin of 1.9, total protein 4.8. PHYSICAL EXAMINATION: GENERAL: An 82-year-old female. VITAL SIGNS: The patient is afebrile with pulse of 86, respiratory rate 16 to 18, blood pressure 94/48. HEENT: Showed pale, dry oral mucous membrane. Nonicteric sclerae. LUNGS: Few scattered crepitation. Decreased air entry at bases. HEART: Positive S1 and S2. ABDOMEN: Soft with bowel sounds are present with reported dark-colored residual. Abdomen is nondistended. EXTREMITIES: Without significant edema, clubbing, or cyanosis. NEUROLOGICAL: No reported new neurological deficits, sensory or motor. IMPRESSION: 1. Failure to thrive. 2. Status post percutaneous endoscopic gastrostomy insertion. 3. Malnutrition. 4. Hypochromic microcytic anemia. SUGGESTIONS: 1. Continue current management. 2. If there is more discoloration of the gastric content through the PEG tube, then repeat upper endoscopy to follow. 3. Case discussed also with the family. We will follow up closely with you. Derek Chapa MD
--- NOTE | 2018-03-18 16:43 | CP.PCM.PN ---
Subjective - Date & Time of Evaluation Date of Evaluation: 03/18/18 Time of Evaluation: 07:00 - Subjective Subjective: Patient seen. No acute events over night . Hgb stable. Objective - Vital Signs/Intake and Output Vital Signs (last 24 hours): Temp Pulse Resp BP Pulse Ox 97.6 F 94 H 13 104/56 L 100 03/18/18 12:00 03/18/18 16:20 03/18/18 16:20 03/18/18 15:50 03/18/18 16:20 Intake and Output: 03/18/18 03/18/18 06:59 18:59 Intake Total 2209.2 2115.3 Output Total 145 205 Balance 2064.2 1910.3 - Medications Medications: Current Medications Albumin Human (Albumin Human 25% (12.5 Gm/50 Ml)) 12.5 gm IV Q12 TANJA Stop: 03/20/18 10:01 Last Admin: 03/18/18 10:27 Dose: 12.5 gm Piperacillin Sod/Tazobactam Sod (Zosyn 3.375 Gm Iv Premix) 3.375 gm in 50 mls @ 100 mls/hr IVPB Q6H TANJA PRN Reason: Protocol Last Admin: 03/18/18 15:00 Dose: 100 mls/hr Vancomycin/Sodium Chloride (Vancomycin 1 Gm/Ns 200 Ml) 1 gm in 200 mls @ 133 mls/hr IVPB Q24H TANJA PRN Reason: Protocol Stop: 03/21/18 14:01 Last Admin: 03/18/18 15:00 Dose: 133 mls/hr Norepinephrine Bitartrate 8 mg (/ Sodium Chloride) 250 mls @ 7.5 mls/hr IV .Q24H PRN; Protocol; 4 MCG/MIN PRN Reason: TITRATE PER MD ORDER Last Admin: 03/17/18 23:15 Dose: 6.02 mcg/min, 11.3 mls/hr Multivitamins/Vitamin C 10 ml/Chromium/Copper/Manganese/Zinc 1 ml/ Amino Acids 1,011 mls @ 42 mls/hr IV .Q24H ONE Stop: 03/19/18 17:59 Multivitamins/Vitamin C 10 ml/Chromium/Copper/Manganese/Zinc 1 ml/ Amino Acids 1,011 mls @ 42 mls/hr IV .Q24H TANJA Stop: 03/18/18 17:59 Fat Emulsion Intravenous (Intralipid 20%) 250 mls @ 42 mls/hr IV MWF@1800 [facility] Stop: 03/23/18 18:01 Pantoprazole Sodium (Protonix Inj) 40 mg IVP Q12 [facility] Last Admin: 03/18/18 10:26 Dose: 40 mg - Labs Labs: 03/18/18 05:22 03/18/18 05:22 PT 14.3 SECONDS (9.7-12.2) H 03/15/18 14:20 INR 1.3 03/15/18 14:20 APTT 32 SECONDS (21-34) 03/15/18 14:20 - Constitutional Appears: No Acute Distress - Head Exam Head Exam: NORMOCEPHALIC - Eye Exam Eye Exam: Normal appearance - ENT Exam ENT Exam: Mucous Membranes Moist - Neurological Exam Neurological Exam: Alert, Awake, Oriented x3 - Psychiatric Exam Psychiatric exam: Normal Mood - Skin Skin Exam: Dry, Intact, Warm Assessment and Plan - Assessment and Plan (Free Text) Assessment: PE with episodes of melena Free air on CT: possibly 2/2 the PEG -NPO -IVF -ABX -Possible IVC filter -Will speak wit fam regarding wishes DW Dr. Robison
--- NOTE | 2018-03-18 16:46 | CP.PCM.CON ---
History of Present Illness - History of Present Illness History of Present Illness: General Surgery Consult note Past Patient History - Past Medical History & Family History Past Medical History?: Yes - Past Social History Smoking Status: Never Smoked Alcohol: None Drugs: Denies Home Situation {Lives}: Snf - CARDIAC Hx Hypertension: Yes - PULMONARY Hx Respiratory Disorders: Yes - NEUROLOGICAL Hx Dementia: Yes Hx Seizures: Yes - HEENT Hx Glaucoma: Yes - RENAL Hx Chronic Kidney Disease: No - ENDOCRINE/METABOLIC Hx Endocrine Disorders: No - HEMATOLOGICAL/ONCOLOGICAL Hx Blood Disorders: No - INTEGUMENTARY Hx Dermatological Problems: No - MUSCULOSKELETAL/RHEUMATOLOGICAL Hx Falls: Yes Hx Unsteady Gait: Yes (diff walking) - GASTROINTESTINAL Hx Gastrointestinal Disorders: No - GENITOURINARY/GYNECOLOGICAL Hx Genitourinary Disorders: No - PSYCHIATRIC Hx Substance Use: No - SURGICAL HISTORY Hx Surgeries: No - ANESTHESIA Hx Anesthesia: No Meds Allergies/Adverse Reactions: Allergies Allergy/AdvReac Type Severity Reaction Status Date / Time No Known Allergies Allergy Unverified 03/05/18 17:40 - Medications Medications: Current Medications Albumin Human (Albumin Human 25% (12.5 Gm/50 Ml)) 12.5 gm IV Q12 [facility] Stop: 03/20/18 10:01 Last Admin: 03/18/18 10:27 Dose: 12.5 gm Piperacillin Sod/Tazobactam Sod (Zosyn 3.375 Gm Iv Premix) 3.375 gm in 50 mls @ 100 mls/hr IVPB Q6H [facility] PRN Reason: Protocol Last Admin: 03/18/18 15:00 Dose: 100 mls/hr Vancomycin/Sodium Chloride (Vancomycin 1 Gm/Ns 200 Ml) 1 gm in 200 mls @ 133 mls/hr IVPB Q24H TANJA PRN Reason: Protocol Stop: 03/21/18 14:01 Last Admin: 03/18/18 15:00 Dose: 133 mls/hr Norepinephrine Bitartrate 8 mg (/ Sodium Chloride) 250 mls @ 7.5 mls/hr IV .Q24H PRN; Protocol; 4 MCG/MIN PRN Reason: TITRATE PER MD ORDER Last Admin: 03/17/18 23:15 Dose: 6.02 mcg/min, 11.3 mls/hr Multivitamins/Vitamin C 10 ml/Chromium/Copper/Manganese/Zinc 1 ml/ Amino Acids 1,011 mls @ 42 mls/hr IV .Q24H ONE Stop: 03/19/18 17:59 Multivitamins/Vitamin C 10 ml/Chromium/Copper/Manganese/Zinc 1 ml/ Amino Acids 1,011 mls @ 42 mls/hr IV .Q24H [facility]AN[facility] Stop: 03/18/18 17:59 Fat Emulsion Intravenous (Intralipid 20%) 250 mls @ 42 mls/hr IV MWF@1800 [facility] Stop: 03/23/18 18:01 Pantoprazole Sodium (Protonix Inj) 40 mg IVP Q12 [facility]ANJA Last Admin: 03/18/18 10:26 Dose: 40 mg Results - Vital Signs Recent Vital Signs: Last Vital Signs Temp 97.9 F 03/18/18 16:00 Pulse 94 H 03/18/18 16:20 Resp 13 03/18/18 16:20 BP 104/56 L 03/18/18 15:50 Pulse Ox 100 03/18/18 16:20 - Labs Result Diagrams: 03/18/18 05:22 03/18/18 05:22 Labs: Laboratory Results - last 24 hr 03/17/18 03/17/18 03/18/18 18:08 23:52 05:22 WBC 9.7 RBC 3.99 Hgb 10.6 L Hct 31.1 L MCV 78.0 L MCH 26.7 L MCHC 34.2 RDW 19.6 H Plt Count 139 MPV 8.7 Neut % (Auto) 83.0 H Lymph % (Auto) 13.0 L [place] % (Auto) 3.0 Eos % (Auto) 1.0 Baso % (Auto) 0.0 Neut # (Auto) 8.0 H Lymph # (Auto) 1.3 [place] # (Auto) 0.3 Eos # (Auto) 0.1 Baso # (Auto) 0.0 Sodium Potassium Chloride Carbon Dioxide Anion Gap BUN Creatinine Est GFR ( Amer) Est GFR (Non-Af Amer) POC Glucose (mg/dL) 86 123 H Random Glucose Calcium Phosphorus Magnesium Total Bilirubin AST ALT Alkaline Phosphatase Total Protein Albumin Globulin Albumin/Globulin Ratio 03/18/18 03/18/18 03/18/18 05:22 06:15 11:31 WBC RBC Hgb Hct MCV MCH MCHC RDW Plt Count MPV Neut % (Auto) Lymph % (Auto) [place] % (Auto) Eos % (Auto) Baso % (Auto) Neut # (Auto) Lymph # (Auto) [place] # (Auto) Eos # (Auto) Baso # (Auto) Sodium 140 Potassium 2.9 L Chloride 115 H Carbon Dioxide 14 L Anion Gap 14 BUN 12 Creatinine 0.7 Est GFR ( Amer) > 60 Est GFR (Non-Af Amer) > 60 POC Glucose (mg/dL) 151 H 179 H Random Glucose 143 H Calcium 7.8 L Phosphorus 3.5 Magnesium 1.7 Total Bilirubin 1.6 H AST 31 ALT 33 Alkaline Phosphatase 124 Total Protein 4.8 L Albumin 1.9 L Globulin 2.9 Albumin/Globulin Ratio 0.7 L
[2018-03-18] MEDS ORDERED: PPN IV ONE (18:00)
[2018-03-19] MEDS: Piperacill/Tazo 3.375gm in Dex 3.375 GM/50 ML BAG IVPB SCH ×4 (00:30→19:30)
[2018-03-19 06:37] LABS: BASO % 0.3 % (0.0-2.0); EOS # 0.2 K/uL (0.0-0.7); EOS % 2.1 % (0.0-4.0); HEMOGLOBIN 9.2 g/dL (11.0-16.0); LYMPH # 0.8 K/uL (1.0-4.3); LYMPH % 10.2 % (20.0-40.0); MEAN CORPUSCULAR HEMOGLOBIN 26.4 pg (27.0-31.0); MEAN CORPUSCULAR HGB CONC 33.9 g/dL (33.0-37.0); MEAN PLATELET VOLUME 8.4 fL (7.2-11.7); MONO # 0.3 K/uL (0.0-0.8); MONO % 3.7 % (0.0-10.0); NEUT # 6.5 K/uL (1.8-7.0); NEUT % 83.7 % (50.0-75.0); NRBC % 0.2 % (0.0-2.0); RBC 3.5 Mil/uL (3.80-5.20); RED CELL DISTRIBUTION WIDTH 19.5 % (11.5-14.5); WHITE BLOOD COUNT 7.8 K/uL (4.8-10.8)
[2018-03-19 07:02] LABS: ALB/GLOB RATIO 0.8 (1.0-2.1); ALBUMIN 2.1 g/dL (3.5-5.0); ALT/SGPT 33 U/L (9-52); AST/SGOT 51 U/L (14-36); BLOOD UREA NITROGEN 11 mg/dL (7-17); GFR NON-AFRICAN AMERICAN > 60
[2018-03-19] MEDS: Albumin Human 25% (12.5 gm/50 ml) IV SCH ×2 (09:13→21:10)
[2018-03-19] MEDS ORDERED: Sodium Bicarbonate (8.4%) 50 Meq Syringe IVP ONE (10:08)
--- NOTE | 2018-03-19 11:16 | CP.PCM.CON ---
History of Present Illness - History of Present Illness History of Present Illness: Palliative consult requested by Doctor Campoverde for goals of care discussion Patient is a 82 yo female admitted from [place] with AMS. patient is nonverbal at base line. Per correction record, patient has had poor appetite X 3 weeka and has been losing weight. Upon admission patient found with elevated lactic level and decreased BP. Sepsis was diagnosed. BCs and urine C&S positive for E. Fecalis. Zosyn IV and Vanco IV on board. PEG inserted on 03/12/18. Patient did not tolerate PEG feedings at first. TPN on as supplement Tx. Doctor Jose A on board. PICC line planed for for IV antibiotics. Code status not defined. Palliative care consulted to discuss it. Surgery consulted for AVC filter, due to DVT. Family made no decision yet. Patient is high risk for oral anticoagulation, Platelets 119. PMH: HTN, nonverbal, dementia, seizures, DVT, B/L breast lympectomy Soc. Hx: [place] resident, , Fam. Hx: No record of fam Hx Review of Systems - Review of Systems All systems: reviewed and no additional remarkable complaints except Review of Systems: ROS unobtainable from patient due to condition. Per nursing patient is very lethargyc, unresponsive to stimuli. Past Patient History - Past Medical History & Family History Past Medical History?: Yes - Past Social History Smoking Status: Never Smoked Alcohol: None Drugs: Denies Home Situation {Lives}: Snf - CARDIAC Hx Hypertension: Yes - PULMONARY Hx Respiratory Disorders: Yes - NEUROLOGICAL Hx Dementia: Yes Hx Seizures: Yes - HEENT Hx Glaucoma: Yes - RENAL Hx Chronic Kidney Disease: No - ENDOCRINE/METABOLIC Hx Endocrine Disorders: No - HEMATOLOGICAL/ONCOLOGICAL Hx Blood Disorders: No - INTEGUMENTARY Hx Dermatological Problems: No - MUSCULOSKELETAL/RHEUMATOLOGICAL Hx Falls: Yes Hx Unsteady Gait: Yes (diff walking) - GASTROINTESTINAL Hx Gastrointestinal Disorders: No - GENITOURINARY/GYNECOLOGICAL Hx Genitourinary Disorders: No - PSYCHIATRIC Hx Substance Use: No - SURGICAL HISTORY Hx Surgeries: No - ANESTHESIA Hx Anesthesia: No Meds Allergies/Adverse Reactions: Allergies Allergy/AdvReac Type Severity Reaction Status Date / Time No Known Allergies Allergy Unverified 03/05/18 17:40 - Medications Medications: Current Medications Albumin Human (Albumin Human 25% (12.5 Gm/50 Ml)) 12.5 gm IV Q12 [facility] Stop: 03/20/18 10:01 Last Admin: 03/19/18 09:13 Dose: 12.5 gm Albuterol/Ipratropium (Duoneb 3 Mg/0.5 Mg (3 Ml) Ud) 3 ml INH RQ4 [facility]AN[facility] Piperacillin Sod/Tazobactam Sod (Zosyn 3.375 Gm Iv Premix) 3.375 gm in 50 mls @ 100 mls/hr IVPB Q6H [facility] PRN Reason: Protocol Last Admin: 03/19/18 06:00 Dose: 100 mls/hr Vancomycin/Sodium Chloride (Vancomycin 1 Gm/Ns 200 Ml) 1 gm in 200 mls @ 133 mls/hr IVPB Q24H [facility]ANJA PRN Reason: Protocol Stop: 03/21/18 14:01 Last Admin: 03/18/18 15:00 Dose: 133 mls/hr Norepinephrine Bitartrate 8 mg (/ Sodium Chloride) 250 mls @ 7.5 mls/hr IV .Q24H PRN; Protocol; 4 MCG/MIN PRN Reason: TITRATE PER MD ORDER Last Titration: 03/19/18 08:00 Dose: 0 mcg/min, 0 mls/hr Multivitamins/Vitamin C 10 ml/Chromium/Copper/Manganese/Zinc 1 ml/ Amino Acids 1,011 mls @ 42 mls/hr IV .Q24H ONE Stop: 03/19/18 17:59 Last Admin: 03/18/18 18:10 Dose: 42 mls/hr Fat Emulsion Intravenous (Intralipid 20%) 250 mls @ 42 mls/hr IV MWF@1800 [facility] Stop: 03/23/18 18:01 Potassium Chloride (Potassium Chloride 20 Meq/100 Ml) 20 meq in 100 mls @ 50 mls/hr IVPB Q2 [facility] Stop: 03/19/18 11:59 Last Admin: 03/19/18 10:33 Dose: 50 mls/hr Pantoprazole Sodium (Protonix Inj) 40 mg IVP Q12 [facility] Last Admin: 03/19/18 09:13 Dose: 40 mg Physical Exam - Constitutional Appears: No Acute Distress, Chronically Ill - Head Exam Head Exam: ATRAUMATIC, NORMAL INSPECTION, NORMOCEPHALIC - Eye Exam Additional comments: Keeps ayes closed - ENT Exam ENT Exam: Mucous Membranes Moist, Normal Exam - Neck Exam Neck exam: Positive for: Normal Inspection - Respiratory Exam Respiratory Exam: Decreased Breath Sounds, NORMAL BREATHING PATTERN - Cardiovascular Exam Cardiovascular Exam: Tachycardia - GI/Abdominal Exam GI & Abdominal Exam: Hypoactive Bowel Sounds - Rectal Exam Rectal Exam: Deferred - Extremities Exam Extremities exam: Positive for: pedal edema Additional comments: edema to upper and lower extremities, large echymosis, right upper arm large bruise post central line - Back Exam Back exam: NORMAL INSPECTION - Neurological Exam Neurological exam: Altered, Motor Sensory Deficit - Psychiatric Exam Psychiatric exam: Flat Affect - Skin Skin Exam: Abrasion, Mottled, Petechiae Results - Vital Signs Recent Vital Signs: Last Vital Signs Temp 98.5 F 03/19/18 08:00 Pulse 108 H 03/19/18 10:40 Resp 17 03/19/18 10:40 BP 92/40 L 03/19/18 10:06 Pulse Ox 100 03/19/18 10:40 - Labs Result Diagrams: 03/19/18 06:33 03/19/18 06:33 Labs: Laboratory Results - last 24 hr 03/18/18 03/18/18 03/18/18 11:31 17:32 23:57 WBC RBC Hgb Hct MCV MCH MCHC RDW Plt Count MPV Neut % (Auto) Lymph % (Auto) [place] % (Auto) Eos % (Auto) Baso % (Auto) Neut # (Auto) Lymph # (Auto) [place] # (Auto) Eos # (Auto) Baso # (Auto) Sodium Potassium Chloride Carbon Dioxide Anion Gap BUN Creatinine Est GFR ( Amer) Est GFR (Non-Af Amer) POC Glucose (mg/dL) 179 H 167 H 204 H Random Glucose Calcium Phosphorus Magnesium Total Bilirubin AST ALT Alkaline Phosphatase Total Protein Albumin Globulin Albumin/Globulin Ratio 03/19/18 03/19/18 03/19/18 06:33 06:33 06:57 WBC 7.8 RBC 3.50 L Hgb 9.2 L Hct 27.3 L MCV 78.0 L MCH 26.4 L MCHC 33.9 RDW 19.5 H Plt Count 119 L D MPV 8.4 Neut % (Auto) 83.7 H Lymph % (Auto) 10.2 L [place] % (Auto) 3.7 Eos % (Auto) 2.1 Baso % (Auto) 0.3 Neut # (Auto) 6.5 Lymph # (Auto) 0.8 L [place] # (Auto) 0.3 Eos # (Auto) 0.2 Baso # (Auto) 0.0 Sodium 140 Potassium 2.9 L Chloride 114 H Carbon Dioxide 16 L Anion Gap 13 BUN 11 Creatinine 0.6 L Est GFR ( Amer) > 60 Est GFR (Non-Af Amer) > 60 POC Glucose (mg/dL) 184 H Random Glucose 168 H Calcium 8.0 L Phosphorus 2.7 Magnesium 1.6 Total Bilirubin 2.9 H AST 51 H D ALT 33 Alkaline Phosphatase 291 H D Total Protein 4.7 L Albumin 2.1 L Globulin 2.6 Albumin/Globulin Ratio 0.8 L Assessment & Plan - Assessment and Plan (Free Text) Assessment: Palliative consult Full Code, there is no Advance directive on chart, PPS 10% I reviewed medical records, all diagnostic studies, examined patient in the bed and discussed her status in ICU rounds Patient examined in bed, unresponsive to tactile /verbal stimuli. Patient is nonverbal at base line. Per nursing patient was more responsive yesterday, was opening her eyes when called by name. [facility] response was called 03/17/18 for low BP. patient is given right groin central line for pressors. While on the floor melena was noted. PPI drip started. CT abdomen showed perforated gastric ulcer and possible PE. Hb today 7.8 . Surgery consulted for AVC filter. Physical exam reveal no nipples on both breasts and looks like old surgical scar on the left breast. per daughter, her mother never had any breast surgeries. Upper and lower extremities are edematous and with a lot of bruises. Upper extremities contracted. Patient bleeds easily after small scratch. Platelets low at 119. BP 108/54, Levophed on board, HR 115, afebrile per nursing, daughter visits daily. I will try to meet with her today for goals of care discussion. 1pm Spoke to daughter Carol over the phone. She said she would come in after 6 pm tonight. I discussed patient's condition and reviewed most recent diagnostic studies. I discussed with daughter patient's increased lethargy today and unresponsiveness. The daughter said that last night patient was the same. The daughter tried to arouse her , but had no success. . Daughter understands severity of it, admits being very worried . Goals of care discussed. The daughter clearly said" please do everything to keep my mother alive". I reassured her of all appropriate care applied. I offered my concerns regarding quality of life issues. The daughter acknowledged it but again asked for all aggressive measures. The need for AVC filter discussed. Daughter was made aware of it already. She asked the benefices of it and I gave ample explanation. The daughter said she will give consent for the AVC filter Impression * Chronically ill lady with severly compromized quality of life * Unresponsive, GCS 3, new development * Contracted upper extremities * Acute blood loss, perforated gastric ulcer * pedal edema * PEG, at risk for aspiration * lack of Advance directive on chart Suggestions * Would consider Neuro consult for changes in mental status * Handle upper extremities with extreme caution due to multiple bruises and easy bleeding * maintain Hb > 10.0, blood transfusion as needed * Elevate LEs * Aspiration precautions * Full Code, daughter Carol advocates for patient Daughter's agreement with AVC filter, discussed with head resident Palliative care will continue to fallow up with patient's daughter and assist her during decision making process. Advance care planing 40 min
--- NOTE | 2018-03-19 12:27 | CP.CCUPN ---
<Italo Sadler - Last Filed: 03/19/18 16:43> CCU Subjective - Physician Review Subjective (Free Text): ICU Progress Note Patient seen and examined at bedside. Patient is nonverbal. Site of PICC line attempt appears swollen. Daughter not present at bedside. 03/19/18 12:37 CCU Objective - Vital Signs / Intake & Output Vital Signs (Last 4 hours): Vital Signs Pulse Resp BP Pulse Ox 03/19/18 11:30 116 H 18 100 03/19/18 11:20 114 H 18 100 03/19/18 11:10 114 H 18 100 03/19/18 11:05 111 H 19 108/54 L 100 03/19/18 11:00 112 H 19 100 03/19/18 10:50 109 H 18 100 03/19/18 10:40 108 H 17 100 03/19/18 10:30 104 H 18 100 03/19/18 10:20 105 H 17 100 03/19/18 10:10 104 H 17 100 03/19/18 10:06 102 H 16 92/40 L 100 03/19/18 10:00 105 H 18 100 03/19/18 09:50 104 H 17 100 03/19/18 09:40 104 H 16 100 03/19/18 09:30 106 H 16 100 03/19/18 09:20 106 H 14 100 03/19/18 09:10 107 H 16 100 03/19/18 09:07 106 H 16 101/51 L 100 03/19/18 09:00 113 H 13 100 03/19/18 08:53 104 H 17 100 03/19/18 08:50 104 H 19 100 03/19/18 08:40 105 H 15 100 03/19/18 08:30 106 H 17 100 Intake and Output (Last 8hrs): Intake & Output 03/18/18 03/19/18 03/19/18 22:59 06:59 14:59 Intake Total 870.4 660.8 656.2 Output Total 75 275 65 Balance 795.4 385.8 591.2 Intake: IV 35 35 Intake, IV Amount 675.4 480.8 471.2 Right Distal Port Femoral 300 100 200 right groin proximal 336 336 210 right medial port 39.4 44.8 11.2 side port of right prox. 50 TLC Tube Feeding 160 180 150 Output: Urine 75 275 65 Urethral (Ricardo) 275 65 Urine, Voided 75 Other: # Bowel Movements 1 1 - Physical Exam Head: Positive for: Atraumatic, Normocephalic Pupils: Positive for: PERRL Mouth: Positive for: Moist Mucous Membranes Respiratory/Chest: Positive for: Wheezes. Negative for: Respiratory Distress, Accessory Muscle Use Cardiovascular: Positive for: Regular Rate and Rhythm, Normal S1, S2 Abdomen: Positive for: Feeding Tubes (Gastrostomy tube on right abdomen, with minimal output), Other (Abdomen soft ). Negative for: Tenderness, Peritoneal Signs Genitourinary/Pelvic Exam: Positive for: Other (Ricardo cath in place draining urine) Upper Extremity: Positive for: Edema (on right upper extremity s/p PICC line attempts), NORMAL PULSES Lower Extremity: Positive for: NORMAL PULSES. Negative for: Edema, CALF TENDERNESS Neurological: Positive for: Other (Opens eyes spontaneously, nonverbal, moves right upper and lower extremities well. Does not move left upper and lower extremities ) Skin: Positive for: Warm, Dry Psychiatric: Positive for: Other (Nonverbal, opens eyes spontaneously) - Medications Active Medications: Active Medications Generic Name Dose Route Start Last Admin Trade Name Freq PRN Reason Stop Dose Admin Albumin Human 12.5 gm 03/18/18 10:00 03/19/18 09:13 Albumin Human 25% (12.5 Gm/50 Ml) IV 03/20/18 10:01 12.5 gm Q12 TANJA Administration Albuterol/Ipratropium 3 ml 03/19/18 12:00 Duoneb 3 Mg/0.5 Mg (3 Ml) Ud INH RQ4 TANJA Piperacillin Sod/Tazobactam Sod 3.375 gm in 50 mls @ 100 mls/hr 03/15/18 19: 00 03/19/18 12:23 Zosyn 3.375 Gm Iv Premix IVPB 100 mls/hr Q6H TANJA Administration Protocol Vancomycin/Sodium Chloride 1 gm in 200 mls @ 133 mls/hr 03/16/18 14:00 15:00 Vancomycin 1 Gm/Ns 200 Ml IVPB 03/21/18 14:01 133 mls/hr Q24H TANJA Administration Protocol Norepinephrine Bitartrate 8 mg 250 mls @ 7.5 mls/hr 03/16/18 18:15 03/19/18 08:00 / Sodium Chloride IV 0 mcg/min .Q24H PRN 0 mls/hr TITRATE PER MD ORDER Titration Protocol 4 MCG/MIN Multivitamins/Vitamin C 10 ml/ 1,011 mls @ 42 mls/hr 03/18/18 18:00 18 18:10 Chromium/Copper/Manganese/ IV 03/19/18 17:59 42 mls/hr Zinc 1 ml/ Amino Acids .Q24H ONE Administration Fat Emulsion Intravenous 250 mls @ 42 mls/hr 03/19/18 18:00 Intralipid 20% IV 03/23/18 18:01 MWF@1800 TANJA Chromium/Copper/Manganese/Zinc 1,011 mls @ 42 mls/hr 03/19/18 18:00 1 ml/ Multivitamins/Vitamin C IV 03/20/18 17:59 10 ml/ Amino Acids .Q24H ONE Potassium Chloride 20 meq in 100 mls @ 50 mls/hr 03/19/18 11:09 03/19/18 12: 13 Potassium Chloride 20 Meq/100 Ml IVPB 03/19/18 13:08 50 mls/hr ONCE ONE Administration Pantoprazole Sodium 40 mg 03/16/18 11:00 03/19/18 09:13 Protonix Inj IVP 40 mg Q12 TANJA Administration - Patient Studies Lab Studies: Microbiology Studies 03/15/18 19:00 Blood Culture - Final Blood-Venous Coagulase Neg Staphylococcus Corynebacterium Species Gram Stain - Final 03/16/18 06:57 MRSA Culture (Admit) - Final Naris MRSA NOT DETECTED 03/15/18 19:30 S.aureus & Coag-Neg Staph PNA FISH - Final Blood-Venous Blood Culture - Final Enterococcus Faecalis Gram Stain - Final Lab Studies 03/19/18 03/19/18 03/19/18 Range/Units 11:48 06:57 06:33 WBC (4.8-10.8) K/uL RBC (3.80-5.20) Mil/uL Hgb (11.0-16.0) g/dL Hct (34.0-47.0) % MCV (81.0-99.0) fL MCH (27.0-31.0) pg MCHC (33.0-37.0) g/dL RDW (11.5-14.5) % Plt Count (130-400) K/uL MPV (7.2-11.7) fL Neut % (Auto) (50.0-75.0) % Lymph % (Auto) (20.0-40.0) % [place] % (Auto) (0.0-10.0) % Eos % (Auto) (0.0-4.0) % Baso % (Auto) (0.0-2.0) % Neut # (Auto) (1.8-7.0) K/uL Lymph # (Auto) (1.0-4.3) K/uL [place] # (Auto) (0.0-0.8) K/uL Eos # (Auto) (0.0-0.7) K/uL Baso # (Auto) (0.0-0.2) K/uL Differential Comment Sodium 140 (132-148) mmol/L Potassium 2.9 L (3.6-5.2) mmol/L Chloride 114 H (98-107) mmol/L Carbon Dioxide 16 L (22-30) mmol/L Anion Gap 13 (10-20) BUN 11 (7-17) mg/dL Creatinine 0.6 L (0.7-1.2) mg/dL Est GFR ( Amer) > 60 Est GFR (Non-Af Amer) > 60 POC Glucose (mg/dL) 205 H 184 H (65-110) mg/dL Random Glucose 168 H (65-105) mg/dL Calcium 8.0 L (8.6-10.4) mg/dl Phosphorus 2.7 (2.5-4.5) mg/dL Magnesium 1.6 (1.6-2.3) mg/dL Total Bilirubin 2.9 H (0.2-1.3) mg/dL AST 51 H D (14-36) U/L ALT 33 (9-52) U/L Alkaline Phosphatase 291 H D (38-126) U/L Total Protein 4.7 L (6.3-8.3) g/dL Albumin 2.1 L (3.5-5.0) g/dL Globulin 2.6 (2.2-3.9) gm/dL Albumin/Globulin Ratio 0.8 L (1.0-2.1) 03/19/18 03/18/18 03/18/18 Range/Units 06:33 23:57 17:32 WBC 7.8 (4.8-10.8) K/uL RBC 3.50 L (3.80-5.20) Mil/uL Hgb 9.2 L (11.0-16.0) g/dL Hct 27.3 L (34.0-47.0) % MCV 78.0 L (81.0-99.0) fL MCH 26.4 L (27.0-31.0) pg MCHC 33.9 (33.0-37.0) g/dL RDW 19.5 H (11.5-14.5) % Plt Count 119 L D (130-400) K/uL MPV 8.4 (7.2-11.7) fL Neut % (Auto) 83.7 H (50.0-75.0) % Lymph % (Auto) 10.2 L (20.0-40.0) % [place] % (Auto) 3.7 (0.0-10.0) % Eos % (Auto) 2.1 (0.0-4.0) % Baso % (Auto) 0.3 (0.0-2.0) % Neut # (Auto) 6.5 (1.8-7.0) K/uL Lymph # (Auto) 0.8 L (1.0-4.3) K/uL [place] # (Auto) 0.3 (0.0-0.8) K/uL Eos # (Auto) 0.2 (0.0-0.7) K/uL Baso # (Auto) 0.0 (0.0-0.2) K/uL Differential Comment Sodium (132-148) mmol/L Potassium (3.6-5.2) mmol/L Chloride (98-107) mmol/L Carbon Dioxide (22-30) mmol/L Anion Gap (10-20) BUN (7-17) mg/dL Creatinine (0.7-1.2) mg/dL Est GFR ( Amer) Est GFR (Non-Af Amer) POC Glucose (mg/dL) 204 H 167 H (65-110) mg/dL Random Glucose (65-105) mg/dL Calcium (8.6-10.4) mg/dl Phosphorus (2.5-4.5) mg/dL Magnesium (1.6-2.3) mg/dL Total Bilirubin (0.2-1.3) mg/dL AST (14-36) U/L ALT (9-52) U/L Alkaline Phosphatase (38-126) U/L Total Protein (6.3-8.3) g/dL Albumin (3.5-5.0) g/dL Globulin (2.2-3.9) gm/dL Albumin/Globulin Ratio (1.0-2.1) Laboratory Results - last 24 hr 03/18/18 03/18/18 03/19/18 17:32 23:57 06:33 WBC 7.8 RBC 3.50 L Hgb 9.2 L Hct 27.3 L MCV 78.0 L MCH 26.4 L MCHC 33.9 RDW 19.5 H Plt Count 119 L D MPV 8.4 Neut % (Auto) 83.7 H Lymph % (Auto) 10.2 L [place] % (Auto) 3.7 Eos % (Auto) 2.1 Baso % (Auto) 0.3 Neut # (Auto) 6.5 Lymph # (Auto) 0.8 L [place] # (Auto) 0.3 Eos # (Auto) 0.2 Baso # (Auto) 0.0 Differential Comment Sodium Potassium Chloride Carbon Dioxide Anion Gap BUN Creatinine Est GFR ( Amer) Est GFR (Non-Af Amer) POC Glucose (mg/dL) 167 H 204 H Random Glucose Calcium Phosphorus Magnesium Total Bilirubin AST ALT Alkaline Phosphatase Total Protein Albumin Globulin Albumin/Globulin Ratio 03/19/18 03/19/18 03/19/18 06:33 06:57 11:48 WBC RBC Hgb Hct MCV MCH MCHC RDW Plt Count MPV Neut % (Auto) Lymph % (Auto) [place] % (Auto) Eos % (Auto) Baso % (Auto) Neut # (Auto) Lymph # (Auto) [place] # (Auto) Eos # (Auto) Baso # (Auto) Differential Comment Sodium 140 Potassium 2.9 L Chloride 114 H Carbon Dioxide 16 L Anion Gap 13 BUN 11 Creatinine 0.6 L Est GFR ( Amer) > 60 Est GFR (Non-Af Amer) > 60 POC Glucose (mg/dL) 184 H 205 H Random Glucose 168 H Calcium 8.0 L Phosphorus 2.7 Magnesium 1.6 Total Bilirubin 2.9 H AST 51 H D ALT 33 Alkaline Phosphatase 291 H D Total Protein 4.7 L Albumin 2.1 L Globulin 2.6 Albumin/Globulin Ratio 0.8 L Fingerstick Blood Sugar Results: 204 Review of Systems - Review of Systems Systems not reviewed;Unavailable: Altered Mental Status Critical Care Progress Note - Nutrition Nutrition: Nutrition Category Date Time Status NPO Diet [DIET] Diets 03/15/18 Breakfast Active Assessment/Plan - Assessment and Plan (Free Text) Assessment: 82 year old female with history of HTN, HLD, dementia, seizure disorder who was initially admitted for altered mental status, with decreased PO intake and weight loss. Patient was found to have a UTI. Patient had a peg tube placed on . Unable to tolerate feeds with vomiting. Subsequent CT revealed large volume pneumoperitoneum and small bilateral PE with pulmonary vascular congestion. Code sepsis was called after patient was noted to have elevated lactate with hypotension. Right upper extremity noted to be swollen s/p PICC line attempt. Plan: Neuro: Hx of dementia, altered at baseline Opens eyes spontaneously Nonverbal at baseline Cardiovascular Currently off pressors Right femoral TLC Slightly tachycardic at 115s Pulmonary 03/16 Dopplers: negative for thrombus 03/15 CT chest: bilateral PE with pulmonary vascular congestion. Oxygenating well on NC. Na bicarb one dose given RUE doppler: negative GI s/p PEG on 03/12/[address] Naranjo 03/15 Abdomen/pelvis CT: Recent gastrostomy tube with large volume pneumoperitoneum and thickening of distal stomach/duodenum 03/15 Abdomen XR: large volume pneumoperitoneum 03/14 Abdomen/pelvis CT without contrast: Gallstone without CT evidence of acute cholecystitis. Moderate amount of free air noted in the anterior aspect of the upper abdomen likely related to recent insertion of G tube. The possibility of air lead around the G tube is not totally excluded. Mildly distended large bowel may represent mild bowel ileus. No evidence of bowel obstrution. No evidence of nephrolithiasis or hydronephrosis. Small right pleural effuison and mild cardiomegaly. Started on PPN @ 42cc/hr Restarted on feeds, monitor for emesis. GI Dr. Lucero/Tylor consulted Surgery Dr. Robison consulted Renal Continue to monitor electrolytes, replete K I &Os, currently in + balance NS @ 100cc/hr IV Albumin 12.5mg Q12 IV Endo maintain euglycemia ID UA 2+ LE, Urine cultures + Enterococcus fecalis, repeat urine cultures negative Blood cultures prelim + GP cocci and Enterococcus fecalis Zosyn 3.375g IV, Vancomycin 1g IV Heme/Onc H/H 9.2/27.3 White count 7.8 Platelets 119 Continue to monitor Patient is s/p 1 unit PRBCs on 03/16 PPX: Protonix, SCDs. Case discussed with Dr. Campoverde <Javier Campoverde S - Last Filed: 03/19/18 17:53> CCU Subjective - Physician Review Critical Care Time Spent (in minutes): 30 CCU Objective - Vital Signs / Intake & Output Vital Signs (Last 4 hours): Vital Signs Temp Pulse Resp BP Pulse Ox 03/19/18 17:34 120 H 21 102/51 L 100 03/19/18 16:04 119 H 20 81/45 L 99 03/19/18 16:00 98.9 F 119 H 20 100 03/19/18 15:50 120 H 23 100 03/19/18 15:40 116 H 21 100 03/19/18 15:30 117 H 24 100 03/19/18 15:20 119 H 26 H 100 03/19/18 15:10 118 H 24 100 03/19/18 15:04 116 H 22 107/45 L 100 03/19/18 15:00 116 H 21 100 03/19/18 14:50 115 H 19 100 03/19/18 14:48 113 H 23 108/20 L 100 03/19/18 14:40 114 H 21 100 03/19/18 14:30 108 H 22 100 03/19/18 14:20 107 H 22 100 03/19/18 14:10 102 H 21 100 03/19/18 14:09 102 H 22 106/46 L 100 03/19/18 14:05 100 H 21 49/29 L 100 03/19/18 14:00 99 H 18 100 Intake and Output (Last 8hrs): Intake & Output 03/19/18 03/19/18 03/19/18 06:59 14:59 22:59 Intake Total 660.8 931.5 192.6 Output Total 275 125 25 Balance 385.8 806.5 167.6 Intake: IV 35 30 Intake, IV Amount 480.8 656.5 102.6 Right Distal Port Femoral 100 250 right groin proximal 336 336 84 right medial port 44.8 20.5 18.6 side port of right prox. 50 TLC Tube Feeding 180 240 60 Output: Urine 275 125 25 Urethral (Ricardo) 275 125 25 Other: # Bowel Movements 1 - Medications Active Medications: Active Medications Generic Name Dose Route Start Last Admin Trade Name Freq PRN Reason Stop Dose Admin Albumin Human 12.5 gm 03/18/18 10:00 03/19/18 09:13 Albumin Human 25% (12.5 Gm/50 Ml) IV 03/20/18 10:01 12.5 gm Q12 TANJA Administration Albuterol/Ipratropium 3 ml 03/19/18 12:00 03/19/18 14:08 Duoneb 3 Mg/0.5 Mg (3 Ml) Ud INH 3 ml RQ4 TANJA Administration Piperacillin Sod/Tazobactam Sod 3.375 gm in 50 mls @ 100 mls/hr 03/15/18 19: 00 03/19/18 12:23 Zosyn 3.375 Gm Iv Premix IVPB 100 mls/hr Q6H TANJA Administration Protocol Norepinephrine Bitartrate 8 mg 250 mls @ 7.5 mls/hr 03/16/18 18:15 03/19/18 17:34 / Sodium Chloride IV 5 mcg/min .Q24H PRN 9.37 mls/hr TITRATE PER MD ORDER Administration Protocol 4 MCG/MIN Multivitamins/Vitamin C 10 ml/ 1,011 mls @ 42 mls/hr 03/18/18 18:00 03/18/18 18:10 Chromium/Copper/Manganese/ IV 03/19/18 17:59 42 mls/hr Zinc 1 ml/ Amino Acids .Q24H ONE Administration Fat Emulsion Intravenous 250 mls @ 42 mls/hr 03/19/18 18:00 03/19/18 17:28 Intralipid 20% IV 03/23/18 18:01 42 mls/hr MWF@1800 TANJA Administration Chromium/Copper/Manganese/Zinc 1,011 mls @ 42 mls/hr 03/19/18 18:00 03/19/18 17:48 1 ml/ Multivitamins/Vitamin C IV 03/20/18 17:59 42 mls/hr 10 ml/ Amino Acids .Q24H ONE Administration Vancomycin HCl 1 gm/ Sodium 200 mls @ 166.7 mls/hr 03/19/18 18:00 03/19/18 17 :29 Chloride IVPB 166.7 mls/hr Q24H TANJA Administration Protocol Micafungin Sodium 100 mg/ 100 mls @ 100 mls/hr 03/19/18 18:30 Sodium Chloride IV Q24H TANJA Protocol Pantoprazole Sodium 40 mg 03/16/18 11:00 03/19/18 09:13 Protonix Inj IVP 40 mg Q12 TANJA Administration - Patient Studies Lab Studies: Microbiology Studies 03/15/18 19:00 S.aureus & Coag-Neg Staph PNA FISH - Final Blood-Venous Blood Culture - Final Coagulase Neg Staphylococcus Corynebacterium Species Gram Stain - Final 03/16/18 06:57 MRSA Culture (Admit) - Final Naris MRSA NOT DETECTED Lab Studies 03/19/18 03/19/18 03/19/18 Range/Units 17:21 12:00 11:48 WBC (4.8-10.8) K/uL RBC (3.80-5.20) Mil/uL Hgb (11.0-16.0) g/dL Hct (34.0-47.0) % MCV (81.0-99.0) fL MCH (27.0-31.0) pg MCHC (33.0-37.0) g/dL RDW (11.5-14.5) % Plt Count (130-400) K/uL MPV (7.2-11.7) fL Neut % (Auto) (50.0-75.0) % Lymph % (Auto) (20.0-40.0) % [place] % (Auto) (0.0-10.0) % Eos % (Auto) (0.0-4.0) % Baso % (Auto) (0.0-2.0) % Neut # (Auto) (1.8-7.0) K/uL Lymph # (Auto) (1.0-4.3) K/uL [place] # (Auto) (0.0-0.8) K/uL Eos # (Auto) (0.0-0.7) K/uL Baso # (Auto) (0.0-0.2) K/uL Differential Comment Sodium (132-148) mmol/L Potassium (3.6-5.2) mmol/L Chloride (98-107) mmol/L Carbon Dioxide (22-30) mmol/L Anion Gap (10-20) BUN (7-17) mg/dL Creatinine (0.7-1.2) mg/dL Est GFR ( Amer) Est GFR (Non-Af Amer) POC Glucose (mg/dL) 214 H 205 H (65-110) mg/dL Random Glucose (65-105) mg/dL Calcium (8.6-10.4) mg/dl Phosphorus (2.5-4.5) mg/dL Magnesium (1.6-2.3) mg/dL Total Bilirubin (0.2-1.3) mg/dL AST (14-36) U/L ALT (9-52) U/L Alkaline Phosphatase (38-126) U/L Total Protein (6.3-8.3) g/dL Albumin (3.5-5.0) g/dL Globulin (2.2-3.9) gm/dL Albumin/Globulin Ratio (1.0-2.1) Vancomycin Trough 16.1 H (5.0-10.0) ug/mL 03/19/18 03/19/18 03/19/18 Range/Units 06:57 06:33 06:33 WBC 7.8 (4.8-10.8) K/uL RBC 3.50 L (3.80-5.20) Mil/uL Hgb 9.2 L (11.0-16.0) g/dL Hct 27.3 L (34.0-47.0) % MCV 78.0 L (81.0-99.0) fL MCH 26.4 L (27.0-31.0) pg MCHC 33.9 (33.0-37.0) g/dL RDW 19.5 H (11.5-14.5) % Plt Count 119 L D (130-400) K/uL MPV 8.4 (7.2-11.7) fL Neut % (Auto) 83.7 H (50.0-75.0) % Lymph % (Auto) 10.2 L (20.0-40.0) % [place] % (Auto) 3.7 (0.0-10.0) % Eos % (Auto) 2.1 (0.0-4.0) % Baso % (Auto) 0.3 (0.0-2.0) % Neut # (Auto) 6.5 (1.8-7.0) K/uL Lymph # (Auto) 0.8 L (1.0-4.3) K/uL [place] # (Auto) 0.3 (0.0-0.8) K/uL Eos # (Auto) 0.2 (0.0-0.7) K/uL Baso # (Auto) 0.0 (0.0-0.2) K/uL Differential Comment Sodium 140 (132-148) mmol/L Potassium 2.9 L (3.6-5.2) mmol/L Chloride 114 H (98-107) mmol/L Carbon Dioxide 16 L (22-30) mmol/L Anion Gap 13 (10-20) BUN 11 (7-17) mg/dL Creatinine 0.6 L (0.7-1.2) mg/dL Est GFR ( Amer) > 60 Est GFR (Non-Af Amer) > 60 POC Glucose (mg/dL) 184 H (65-110) mg/dL Random Glucose 168 H (65-105) mg/dL Calcium 8.0 L (8.6-10.4) mg/dl Phosphorus 2.7 (2.5-4.5) mg/dL Magnesium 1.6 (1.6-2.3) mg/dL Total Bilirubin 2.9 H (0.2-1.3) mg/dL AST 51 H D (14-36) U/L ALT 33 (9-52) U/L Alkaline Phosphatase 291 H D (38-126) U/L Total Protein 4.7 L (6.3-8.3) g/dL Albumin 2.1 L (3.5-5.0) g/dL Globulin 2.6 (2.2-3.9) gm/dL Albumin/Globulin Ratio 0.8 L (1.0-2.1) Vancomycin Trough (5.0-10.0) ug/mL 09/18/18 Range/Units 23:57 WBC (4.8-10.8) K/uL RBC (3.80-5.20) Mil/uL Hgb (11.0-16.0) g/dL Hct (34.0-47.0) % MCV (81.0-99.0) fL MCH (27.0-31.0) pg MCHC (33.0-37.0) g/dL RDW (11.5-14.5) % Plt Count (130-400) K/uL MPV (7.2-11.7) fL Neut % (Auto) (50.0-75.0) % Lymph % (Auto) (20.0-40.0) % [place] % (Auto) (0.0-10.0) % Eos % (Auto) (0.0-4.0) % Baso % (Auto) (0.0-2.0) % Neut # (Auto) (1.8-7.0) K/uL Lymph # (Auto) (1.0-4.3) K/uL [place] # (Auto) (0.0-0.8) K/uL Eos # (Auto) (0.0-0.7) K/uL Baso # (Auto) (0.0-0.2) K/uL Differential Comment Sodium (132-148) mmol/L Potassium (3.6-5.2) mmol/L Chloride (98-107) mmol/L Carbon Dioxide (22-30) mmol/L Anion Gap (10-20) BUN (7-17) mg/dL Creatinine (0.7-1.2) mg/dL Est GFR ( Amer) Est GFR (Non-Af Amer) POC Glucose (mg/dL) 204 H (65-110) mg/dL Random Glucose (65-105) mg/dL Calcium (8.6-10.4) mg/dl Phosphorus (2.5-4.5) mg/dL Magnesium (1.6-2.3) mg/dL Total Bilirubin (0.2-1.3) mg/dL AST (14-36) U/L ALT (9-52) U/L Alkaline Phosphatase (38-126) U/L Total Protein (6.3-8.3) g/dL Albumin (3.5-5.0) g/dL Globulin (2.2-3.9) gm/dL Albumin/Globulin Ratio (1.0-2.1) Vancomycin Trough (5.0-10.0) ug/mL Laboratory Results - last 24 hr 03/18/18 03/19/18 03/19/18 23:57 06:33 06:33 WBC 7.8 RBC 3.50 L Hgb 9.2 L Hct 27.3 L MCV 78.0 L MCH 26.4 L MCHC 33.9 RDW 19.5 H Plt Count 119 L D MPV 8.4 Neut % (Auto) 83.7 H Lymph % (Auto) 10.2 L [place] % (Auto) 3.7 Eos % (Auto) 2.1 Baso % (Auto) 0.3 Neut # (Auto) 6.5 Lymph # (Auto) 0.8 L [place] # (Auto) 0.3 Eos # (Auto) 0.2 Baso # (Auto) 0.0 Differential Comment Sodium 140 Potassium 2.9 L Chloride 114 H Carbon Dioxide 16 L Anion Gap 13 BUN 11 Creatinine 0.6 L Est GFR ( Amer) > 60 Est GFR (Non-Af Amer) > 60 POC Glucose (mg/dL) 204 H Random Glucose 168 H Calcium 8.0 L Phosphorus 2.7 Magnesium 1.6 Total Bilirubin 2.9 H AST 51 H D ALT 33 Alkaline Phosphatase 291 H D Total Protein 4.7 L Albumin 2.1 L Globulin 2.6 Albumin/Globulin Ratio 0.8 L Vancomycin Trough 03/19/18 03/19/18 03/19/18 06:57 11:48 12:00 WBC RBC Hgb Hct MCV MCH MCHC RDW Plt Count MPV Neut % (Auto) Lymph % (Auto) [place] % (Auto) Eos % (Auto) Baso % (Auto) Neut # (Auto) Lymph # (Auto) [place] # (Auto) Eos # (Auto) Baso # (Auto) Differential Comment Sodium Potassium Chloride Carbon Dioxide Anion Gap BUN Creatinine Est GFR ( Amer) Est GFR (Non-Af Amer) POC Glucose (mg/dL) 184 H 205 H Random Glucose Calcium Phosphorus Magnesium Total Bilirubin AST ALT Alkaline Phosphatase Total Protein Albumin Globulin Albumin/Globulin Ratio Vancomycin Trough 16.1 H 03/19/18 17:21 WBC RBC Hgb Hct MCV MCH MCHC RDW Plt Count MPV Neut % (Auto) Lymph % (Auto) [place] % (Auto) Eos % (Auto) Baso % (Auto) Neut # (Auto) Lymph # (Auto) [place] # (Auto) Eos # (Auto) Baso # (Auto) Differential Comment Sodium Potassium Chloride Carbon Dioxide Anion Gap BUN Creatinine Est GFR ( Amer) Est GFR (Non-Af Amer) POC Glucose (mg/dL) 214 H Random Glucose Calcium Phosphorus Magnesium Total Bilirubin AST ALT Alkaline Phosphatase Total Protein Albumin Globulin Albumin/Globulin Ratio Vancomycin Trough Critical Care Progress Note - Nutrition Nutrition: Nutrition Category Date Time Status NPO Diet [DIET] Diets 03/15/18 Breakfast Active Attending/Attestation - Attestation I have personally seen and examined this patient.: Yes I have fully participated in the care of the patient.: Yes I have reviewed all pertinent clinical information: Yes Notes (Text): 03/19/18 17:50 patient seen and examined Case discussed with house staff in the morning around Continue IV antibiotics Follow-up lactate level wean off pressors
--- NOTE | 2018-03-19 12:32 | CP.PCM.PN ---
Subjective - Date & Time of Evaluation Date of Evaluation: 03/19/18 Time of Evaluation: 09:50 - Subjective Subjective: Vascular surgery progress note for Dr. Isabella Nagel, PGY-2 Pt S & E at bedside at 0930 Pt is unarousable to verbal or tactile sitmuli. No acute events as per nursing Objective - Vital Signs/Intake and Output Vital Signs (last 24 hours): Temp Pulse Resp BP Pulse Ox 98.5 F 116 H 18 108/54 L 100 03/19/18 08:00 03/19/18 11:30 03/19/18 11:30 03/19/18 11:05 03/19/18 11:30 Intake and Output: 03/19/18 03/19/18 06:59 18:59 Intake Total 1031.2 656.2 Output Total 275 65 Balance 756.2 591.2 - Medications Medications: Current Medications Albumin Human (Albumin Human 25% (12.5 Gm/50 Ml)) 12.5 gm IV Q12 TANJA Stop: 03/20/18 10:01 Last Admin: 03/19/18 09:13 Dose: 12.5 gm Albuterol/Ipratropium (Duoneb 3 Mg/0.5 Mg (3 Ml) Ud) 3 ml INH RQ4 TANJA Piperacillin Sod/Tazobactam Sod (Zosyn 3.375 Gm Iv Premix) 3.375 gm in 50 mls @ 100 mls/hr IVPB Q6H TANJA PRN Reason: Protocol Last Admin: 03/19/18 12:23 Dose: 100 mls/hr Vancomycin/Sodium Chloride (Vancomycin 1 Gm/Ns 200 Ml) 1 gm in 200 mls @ 133 mls/hr IVPB Q24H TANJA PRN Reason: Protocol Stop: 03/21/18 14:01 Last Admin: 03/18/18 15:00 Dose: 133 mls/hr Norepinephrine Bitartrate 8 mg (/ Sodium Chloride) 250 mls @ 7.5 mls/hr IV .Q24H PRN; Protocol; 4 MCG/MIN PRN Reason: TITRATE PER MD ORDER Last Titration: 03/19/18 08:00 Dose: 0 mcg/min, 0 mls/hr Multivitamins/Vitamin C 10 ml/Chromium/Copper/Manganese/Zinc 1 ml/ Amino Acids 1,011 mls @ 42 mls/hr IV .Q24H ONE Stop: 03/19/18 17:59 Last Admin: 03/18/18 18:10 Dose: 42 mls/hr Fat Emulsion Intravenous (Intralipid 20%) 250 mls @ 42 mls/hr IV MWF@1800 TANJA Stop: 03/23/18 18:01 Chromium/Copper/Manganese/Zinc 1 ml/ Multivitamins/Vitamin C 10 ml/ Amino Acids 1,011 mls @ 42 mls/hr IV .Q24H ONE Stop: 03/20/18 17:59 Potassium Chloride (Potassium Chloride 20 Meq/100 Ml) 20 meq in 100 mls @ 50 mls/hr IVPB ONCE ONE Stop: 03/19/18 13:08 Last Admin: 03/19/18 12:13 Dose: 50 mls/hr Pantoprazole Sodium (Protonix Inj) 40 mg IVP Q12 TANJA Last Admin: 03/19/18 09:13 Dose: 40 mg - Labs Labs: 03/19/18 06:33 03/19/18 06:33 PT 14.3 SECONDS (9.7-12.2) H 03/15/18 14:20 INR 1.3 03/15/18 14:20 APTT 32 SECONDS (21-34) 03/15/18 14:20 - Constitutional Appears: Non-toxic, No Acute Distress - Head Exam Head Exam: ATRAUMATIC, NORMAL INSPECTION, NORMOCEPHALIC - Eye Exam Eye Exam: absent: EOMI (does not open eyes to stimuli) - ENT Exam ENT Exam: Mucous Membranes Moist - Respiratory Exam Respiratory Exam: NORMAL BREATHING PATTERN - Cardiovascular Exam Cardiovascular Exam: Tachycardia, +S1, +S2 - GI/Abdominal Exam GI & Abdominal Exam: Soft. absent: Distended (obese), Tenderness - Extremities Exam Extremities Exam: Pedal Edema (bilateral) - Neurological Exam Neurological Exam: absent: Alert, Awake, CN II-XII Intact, Oriented x3 Additional comments: unarousable to verbal or tactile stimuli - Psychiatric Exam Additional comments: unable to assess - Skin Skin Exam: Dry, Intact, Warm. absent: Normal Color (large ecchymoses over medial aspect of RUE) Assessment and Plan - Assessment and Plan (Free Text) Assessment: 82F w/PE w/episodes of melena, Hgb 9.2 from 10.6 Plan: Cont NPO IVF ABx clarify family wishes regarding surgical intervention- IVC filter DW Dr. Enriqueta Nagel, PGY-2
[2018-03-19] MEDS ORDERED: Metoprolol 1 mg/ml Inj IVP ONE (14:00)
[2018-03-19] MEDS: Albuterol-Ipratrop 3 mg / 0.5 (3 ml) UD INH SCH ×3 (14:08→19:54)
[2018-03-19] MEDS: Vancomycin 1 gm/NS 200 ml 1 GM/200 ML BAG IVPB SCH (14:30)
[2018-03-19] MEDS: Norepinephrine 8 MG in Sodium Chloride 0.9% 242 ML IV PRN (17:34)
[2018-03-19] MEDS ORDERED: Vancomycin 1 GM in Sodium Chloride 0.9% 200 ML IVPB SCH (18:00)
[2018-03-19] MEDS ORDERED: Fat Emulsion 20% IV 250 ML IV SCH (18:00)
[2018-03-19] MEDS ORDERED: PPN #3 IV ONE (18:00)
[2018-03-19] MEDS: Micafungin 100 MG in Sodium Chloride 0.9% 100 ML IV SCH (18:59)
--- NOTE | 2018-03-19 23:31 | PN ---
DATE: 03/19/2018 LOCATION: ICU 1. SUBJECTIVE: This is an 82-year-old female seen and examined in rounds with periods of disorientation with semi-confusion. The entire chart is reviewed including but not limited to the most recent lab and radiology study results, current and the previous medication list, current and the previous medical events. Today's lab showed hemoglobin 9.2, hematocrit 27.3, with thrombocytopenia of 119, with potassium 2.9, CO2 content of 16 indicative of metabolic acidosis. Blood glucose level 214, calcium 8, total bilirubin 2.9, AST 51, albumin 2.1, total protein 4.7. PHYSICAL EXAMINATION: GENERAL: An 82-year-old female. VITAL SIGNS: Afebrile, with pulse of 112, blood pressure 106/54. HEENT: Showed pale, dry oral mucous membranes. Mild anicteric sclerae. LUNGS: Few scattered crepitations. Decreased air entry at bases. HEART: Positive S1 and S2. ABDOMEN: Soft. The previously inserted feeding tube is in place without evidence of anterior abdominal wall cellulitis. EXTREMITIES: Lower extremities mild edematous changes. No clubbing or cyanosis. NEUROLOGIC: No reported new neurological deficits, sensory or motor. IMPRESSION: 1. Failure to thrive. 2. Malnutrition with hypoalbuminemia. 3. Anemia, most likely secondary to chronic disease. No clear evidence of active bleeding this morning. 4. Status post percutaneous endoscopic gastrostomy tube insertion. 5. Bacteremia, most likely with hypotension. SUGGESTIONS: 1. Continue current management. 2. Peripheral versus central hyperalimentation. 3. Further recommendations to follow. Derek Chapa MD
[2018-03-20] MEDS: Albuterol-Ipratrop 3 mg / 0.5 (3 ml) UD INH SCH ×6 (01:10→20:15)
[2018-03-20] MEDS: Piperacill/Tazo 3.375gm in Dex 3.375 GM/50 ML BAG IVPB SCH ×5 (02:00→22:30)
[2018-03-20] MEDS: Sodium Chloride 0.9% 1,000 ML IV SCH ×2 (06:30→19:22)
[2018-03-20] MEDS: (Novolog) Insulin Aspart, Recombinant 100 u/ml 10 ml vial SC SCH ×3 (06:34→19:35)
[2018-03-20 06:36] LABS: BASO % 0.3 % (0.0-2.0); EOS % 0.2 % (0.0-4.0); LYMPH # 0.2 K/uL (1.0-4.3); LYMPH % 1.6 % (20.0-40.0); MEAN CELL VOLUME 79.8 fL (81.0-99.0); MEAN CORPUSCULAR HEMOGLOBIN 26.5 pg (27.0-31.0); MEAN CORPUSCULAR HGB CONC 33.2 g/dL (33.0-37.0); MONO # 0.1 K/uL (0.0-0.8); MONO % 0.6 % (0.0-10.0); NEUT # 12.2 K/uL (1.8-7.0); NEUT % 97.3 % (50.0-75.0); NRBC % 1.1 % (0.0-2.0); PLATELET COUNT 140 K/uL (130-400); RBC 3.04 Mil/uL (3.80-5.20); RED CELL DISTRIBUTION WIDTH 19.9 % (11.5-14.5)
[2018-03-20 06:42] LABS: WHITE BLOOD COUNT 12.6 K/uL (4.8-10.8)
[2018-03-20 06:46] LABS: ALB/GLOB RATIO 0.8 (1.0-2.1); ALBUMIN 2.2 g/dL (3.5-5.0); ALT/SGPT 32 U/L (9-52); AST/SGOT 56 U/L (14-36); BLOOD UREA NITROGEN 13 mg/dL (7-17); CALCIUM 8.1 mg/dl (8.6-10.4); GFR NON-AFRICAN AMERICAN > 60
[2018-03-20 08:57] LABS: ANISOCYTOSIS MODERATE; BANDS 21 % (0-2); HYPOCHROMIC MODERATE; LYMPHOCYTE 3 % (20-40); METAMYELOCYTE 2 % (0-0); MONOCYTE 1 % (0-10); MYELOCYTE 1 % (0-0); NEUTROPHIL 71 % (50-75); NUCLEATED RED BLOOD CELL 2 % (0-0); PLATELET ESTIMATE NORMAL (NORMAL); REACTIVE LYMPHOCYTES 1 % (0-0); TOTAL CELLS COUNTED 100
[2018-03-20 08:58] LABS: POIKILOCYTOSIS SLIGHT; TARGET CELLS MODERATE
[2018-03-20 09:02] LABS: LARGE PLATELETS PRESENT; OVALOCYTES SLIGHT
[2018-03-20] MEDS: Albumin Human 25% (12.5 gm/50 ml) IV SCH (09:37)
[2018-03-20] MEDS ORDERED: Magnesium Sulfate 1 gm in D5W 1 GM/100 ML BAG IVPB ONE ×2 (09:41→10:15)
--- NOTE | 2018-03-20 13:00 | CP.PCM.CON ---
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 - CARDIAC Hx Hypertension: Yes - PULMONARY Hx Respiratory Disorders: Yes - NEUROLOGICAL Hx Dementia: Yes Hx Seizures: Yes - HEENT Hx Glaucoma: Yes - RENAL Hx Chronic Kidney Disease: No - ENDOCRINE/METABOLIC Hx Endocrine Disorders: No - HEMATOLOGICAL/ONCOLOGICAL Hx Blood Disorders: No - INTEGUMENTARY Hx Dermatological Problems: No - MUSCULOSKELETAL/RHEUMATOLOGICAL Hx Falls: Yes Hx Unsteady Gait: Yes (diff walking) - GASTROINTESTINAL Hx Gastrointestinal Disorders: No - GENITOURINARY/GYNECOLOGICAL Hx Genitourinary Disorders: No - PSYCHIATRIC Hx Substance Use: No - SURGICAL HISTORY Hx Surgeries: No - ANESTHESIA Hx Anesthesia: No Meds Allergies/Adverse Reactions: Allergies Allergy/AdvReac Type Severity Reaction Status Date / Time No Known Allergies Allergy Unverified 03/05/18 17:40 - Medications Medications: Current Medications Albuterol/Ipratropium (Duoneb 3 Mg/0.5 Mg (3 Ml) Ud) 3 ml INH RQ4 TANJA Last Admin: 03/20/18 08:51 Dose: 3 ml Norepinephrine Bitartrate 8 mg (/ Sodium Chloride) 250 mls @ 7.5 mls/hr IV .Q24H PRN; Protocol; 4 MCG/MIN PRN Reason: TITRATE PER MD ORDER Last Admin: 03/19/18 17:34 Dose: 5 mcg/min, 9.37 mls/hr Vancomycin HCl 1 gm/ Sodium (Chloride) 200 mls @ 166.7 mls/hr IVPB Q24H TANJA PRN Reason: Protocol Last Admin: 03/19/18 17:29 Dose: 166.7 mls/hr Micafungin Sodium 100 mg/ (Sodium Chloride) 100 mls @ 100 mls/hr IV Q24H TANJA PRN Reason: Protocol Last Admin: 03/19/18 18:59 Dose: 100 mls/hr Sodium Chloride (Sodium Chloride 0.9%) 1,000 mls @ 100 mls/hr IV .Q10H TANJA Last Admin: 03/20/18 06:30 Dose: 100 mls/hr Vancomycin HCl 1 gm/ Sodium (Chloride) 250 mls @ 167 mls/hr IVPB Q24H TANJA PRN Reason: Protocol Insulin Aspart (Novolog) 0 unit SC Q6 TANJA PRN Reason: Protocol Last Admin: 03/20/18 12:28 Dose: 2 units Pantoprazole Sodium (Protonix Inj) 40 mg IVP Q12 TANJA Last Admin: 03/20/18 09:37 Dose: 40 mg Results - Vital Signs Recent Vital Signs: Last Vital Signs Temp 98.3 F 03/20/18 12:00 Pulse 57 L 03/20/18 12:20 Resp 20 03/20/18 12:20 BP 126/69 03/20/18 12:16 Pulse Ox 98 03/20/18 12:20 - Labs Result Diagrams: 03/20/18 06:17 03/20/18 06:17 Labs: Laboratory Results - last 24 hr 03/19/18 03/19/18 03/20/18 17:21 23:33 05:59 WBC RBC Hgb Hct MCV MCH MCHC RDW Plt Count MPV Neut % (Auto) Lymph % (Auto) Stephenson % (Auto) Eos % (Auto) Baso % (Auto) Neut # (Auto) Lymph # (Auto) Stephenson # (Auto) Eos # (Auto) Baso # (Auto) Neutrophils % (Manual) Band Neutrophils % Lymphocytes % (Manual) Reactive Lymphs % Monocytes % (Manual) Metamyelocytes % Myelocytes % Nucleated RBC % Platelet Estimate Large Platelets Hypochromasia (manual) Poikilocytosis (manual Anisocytosis (manual) Target Cells Ovalocytes Sodium Potassium Chloride Carbon Dioxide Anion Gap BUN Creatinine Est GFR ( Amer) Est GFR (Non-Af Amer) POC Glucose (mg/dL) 214 H 243 H 306 H Random Glucose Calcium Phosphorus Magnesium Total Bilirubin AST ALT Alkaline Phosphatase Total Protein Albumin Globulin Albumin/Globulin Ratio Random Vancomycin 03/20/18 03/20/18 03/20/18 06:06 06:17 06:17 WBC 12.6 H D RBC 3.04 L Hgb 8.0 L Hct 24.3 L MCV 79.8 L MCH 26.5 L MCHC 33.2 RDW 19.9 H Plt Count 140 MPV 9.0 Neut % (Auto) 97.3 H Lymph % (Auto) 1.6 L Stephenson % (Auto) 0.6 Eos % (Auto) 0.2 Baso % (Auto) 0.3 Neut # (Auto) 12.2 H Lymph # (Auto) 0.2 L Stephenson # (Auto) 0.1 Eos # (Auto) 0.0 Baso # (Auto) 0.0 Neutrophils % (Manual) 71 Band Neutrophils % 21 H* Lymphocytes % (Manual) 3 L Reactive Lymphs % 1 H Monocytes % (Manual) 1 Metamyelocytes % 2 H Myelocytes % 1 H Nucleated RBC % 2 H Platelet Estimate Normal Large Platelets Present Hypochromasia (manual) Moderate Poikilocytosis (manual Slight Anisocytosis (manual) Moderate Target Cells Moderate Ovalocytes Slight Sodium 142 Potassium 4.0 Chloride 113 H Carbon Dioxide 16 L Anion Gap 17 BUN 13 Creatinine 0.7 Est GFR ( Amer) > 60 Est GFR (Non-Af Amer) > 60 POC Glucose (mg/dL) 339 H Random Glucose 259 H Calcium 8.1 L Phosphorus 2.6 Magnesium 1.5 L Total Bilirubin 2.4 H AST 56 H ALT 32 Alkaline Phosphatase 373 H D Total Protein 4.9 L Albumin 2.2 L Globulin 2.7 Albumin/Globulin Ratio 0.8 L Random Vancomycin 03/20/18 03/20/18 11:34 12:16 WBC RBC Hgb Hct MCV MCH MCHC RDW Plt Count MPV Neut % (Auto) Lymph % (Auto) Stephenson % (Auto) Eos % (Auto) Baso % (Auto) Neut # (Auto) Lymph # (Auto) Stephenson # (Auto) Eos # (Auto) Baso # (Auto) Neutrophils % (Manual) Band Neutrophils % Lymphocytes % (Manual) Reactive Lymphs % Monocytes % (Manual) Metamyelocytes % Myelocytes % Nucleated RBC % Platelet Estimate Large Platelets Hypochromasia (manual) Poikilocytosis (manual Anisocytosis (manual) Target Cells Ovalocytes Sodium Potassium Chloride Carbon Dioxide Anion Gap BUN Creatinine Est GFR ( Amer) Est GFR (Non-Af Amer) POC Glucose (mg/dL) 199 H Random Glucose Calcium Phosphorus Magnesium Total Bilirubin AST ALT Alkaline Phosphatase Total Protein Albumin Globulin Albumin/Globulin Ratio Random Vancomycin 17.8
--- NOTE | 2018-03-20 13:21 | CP.CCUPN ---
<Italo Sadler - Last Filed: 03/20/18 13:52> CCU Subjective - Physician Review Subjective (Free Text): ICU Progress Note Patient seen and examined at bedside. Patient is nonverbal. Site of PICC line attempt on right arm appears swollen. Right femoral TLC does not appear red, warm or infected. Currently still on Levophed. Daughter not present at bedside. CCU Objective - Vital Signs / Intake & Output Vital Signs (Last 4 hours): Vital Signs Temp Pulse Resp BP Pulse Ox 03/20/18 13:00 114 H 20 100 03/20/18 12:30 111 H 22 98 03/20/18 12:20 57 L 20 98 03/20/18 12:16 112 H 19 126/69 97 03/20/18 12:00 98.3 F 108 H 36 H 100 03/20/18 11:30 105 H 18 100 03/20/18 11:16 103 H 19 91/47 L 100 03/20/18 11:00 104 H 18 100 03/20/18 10:30 105 H 18 100 03/20/18 10:20 107 H 19 100 03/20/18 10:15 86/43 L 03/20/18 10:10 114 H 21 96 03/20/18 09:40 109 H 20 100 03/20/18 09:30 110 H 18 98 03/20/18 09:20 113 H 21 100 Intake and Output (Last 8hrs): Intake & Output 03/19/18 03/20/18 03/20/18 22:59 06:59 14:59 Intake Total 1130.4 540.4 1009.7 Output Total 110 90 70 Balance 1020.4 450.4 939.7 Intake: IV 30 Intake, IV Amount 810.4 510.4 1009.7 Right Distal Port Femoral 400 100 650 right groin proximal 336 336 294 right medial port 74.4 74.4 65.7 Oral 0 0 Tube Feeding 240 30 Other 50 Output: Urine 110 90 70 Urethral (Ricardo) 110 90 70 - Physical Exam Head: Positive for: Atraumatic, Normocephalic Pupils: Positive for: PERRL Mouth: Positive for: Moist Mucous Membranes Respiratory/Chest: Positive for: Wheezes. Negative for: Respiratory Distress, Accessory Muscle Use Cardiovascular: Positive for: Regular Rate and Rhythm, Normal S1, S2 Abdomen: Positive for: Feeding Tubes (Gastrostomy tube on right abdomen), Other (Abdomen soft ). Negative for: Tenderness, Peritoneal Signs Genitourinary/Pelvic Exam: Positive for: Other (Ricardo cath in place draining urine) Upper Extremity: Positive for: Edema (erythema and edema on right upper extremity s/p PICC line attempts), NORMAL PULSES Lower Extremity: Positive for: NORMAL PULSES, Other (Right femoral TLC in place , without evidence of infection). Negative for: Edema, CALF TENDERNESS Neurological: Positive for: Other (Opens eyes spontaneously, nonverbal. ) Skin: Positive for: Warm, Dry Psychiatric: Positive for: Other (Nonverbal, opens eyes spontaneously) - Medications Active Medications: Active Medications Generic Name Dose Route Start Last Admin Trade Name Freq PRN Reason Stop Dose Admin Albuterol/Ipratropium 3 ml 03/19/18 12:00 03/20/18 08:51 Duoneb 3 Mg/0.5 Mg (3 Ml) Ud INH 3 ml RQ4 TANJA Administration Norepinephrine Bitartrate 8 mg 250 mls @ 7.5 mls/hr 03/16/18 18:15 03/19/18 17:34 / Sodium Chloride IV 5 mcg/min .Q24H PRN 9.37 mls/hr TITRATE PER MD ORDER Administration Protocol 4 MCG/MIN Vancomycin HCl 1 gm/ Sodium 200 mls @ 166.7 mls/hr 03/19/18 18:00 03/19/18 17 :29 Chloride IVPB 166.7 mls/hr Q24H TANJA Administration Protocol Micafungin Sodium 100 mg/ 100 mls @ 100 mls/hr 03/19/18 18:30 03/19/18 18:59 Sodium Chloride IV 100 mls/hr Q24H TANJA Administration Protocol Sodium Chloride 1,000 mls @ 100 mls/hr 03/20/18 06:15 03/20/18 06:30 Sodium Chloride 0.9% IV 100 mls/hr .Q10H TANJA Administration Vancomycin HCl 1 gm/ Sodium 200 mls @ 167 mls/hr 03/20/18 16:00 Chloride IVPB Q24H TANJA Protocol Piperacillin Sod/Tazobactam Sod 3.375 gm in 50 mls @ 100 mls/hr 03/20/18 14: 00 Zosyn 3.375 Gm Iv Premix IVPB Q8H [facility] Protocol Insulin Aspart 0 unit 03/20/18 06:21 03/20/18 12:28 Novolog SC 2 units Q6 [facility] Administration Protocol Pantoprazole Sodium 40 mg 03/16/18 11:00 03/20/18 09:37 Protonix Inj IVP 40 mg Q12 TANJA Administration - Patient Studies Lab Studies: Microbiology Studies 03/15/18 19:00 S.aureus & Coag-Neg Staph PNA FISH - Final Blood-Venous Blood Culture - Final Coagulase Neg Staphylococcus Corynebacterium Species Gram Stain - Final Lab Studies 03/20/18 03/20/18 03/20/18 Range/Units 12:16 11:34 06:17 WBC (4.8-10.8) K/uL RBC (3.80-5.20) Mil/uL Hgb (11.0-16.0) g/dL Hct (34.0-47.0) % MCV (81.0-99.0) fL MCH (27.0-31.0) pg MCHC (33.0-37.0) g/dL RDW (11.5-14.5) % Plt Count (130-400) K/uL MPV (7.2-11.7) fL Neut % (Auto) (50.0-75.0) % Lymph % (Auto) (20.0-40.0) % [place] % (Auto) (0.0-10.0) % Eos % (Auto) (0.0-4.0) % Baso % (Auto) (0.0-2.0) % Neut # (Auto) (1.8-7.0) K/uL Lymph # (Auto) (1.0-4.3) K/uL [place] # (Auto) (0.0-0.8) K/uL Eos # (Auto) (0.0-0.7) K/uL Baso # (Auto) (0.0-0.2) K/uL Neutrophils % (Manual) (50-75) % Band Neutrophils % (0-2) % Lymphocytes % (Manual) (20-40) % Reactive Lymphs % (0-0) % Monocytes % (Manual) (0-10) % Metamyelocytes % (0-0) % Myelocytes % (0-0) % Nucleated RBC % (0-0) % Platelet Estimate (NORMAL) Large Platelets Hypochromasia (manual) Poikilocytosis (manual Anisocytosis (manual) Target Cells Ovalocytes Sodium 142 (132-148) mmol/L Potassium 4.0 (3.6-5.2) mmol/L Chloride 113 H (98-107) mmol/L Carbon Dioxide 16 L (22-30) mmol/L Anion Gap 17 (10-20) BUN 13 (7-17) mg/dL Creatinine 0.7 (0.7-1.2) mg/dL Est GFR ( Amer) > 60 Est GFR (Non-Af Amer) > 60 POC Glucose (mg/dL) 199 H (65-110) mg/dL Random Glucose 259 H (65-105) mg/dL Calcium 8.1 L (8.6-10.4) mg/dl Phosphorus 2.6 (2.5-4.5) mg/dL Magnesium 1.5 L (1.6-2.3) mg/dL Total Bilirubin 2.4 H (0.2-1.3) mg/dL AST 56 H (14-36) U/L ALT 32 (9-52) U/L Alkaline Phosphatase 373 H D (38-126) U/L Total Protein 4.9 L (6.3-8.3) g/dL Albumin 2.2 L (3.5-5.0) g/dL Globulin 2.7 (2.2-3.9) gm/dL Albumin/Globulin Ratio 0.8 L (1.0-2.1) Random Vancomycin 17.8 ug/mL 03/20/18 03/20/18 03/20/18 Range/Units 06:17 06:06 05:59 WBC 12.6 H D (4.8-10.8) K/uL RBC 3.04 L (3.80-5.20) Mil/uL Hgb 8.0 L (11.0-16.0) g/dL Hct 24.3 L (34.0-47.0) % MCV 79.8 L (81.0-99.0) fL MCH 26.5 L (27.0-31.0) pg MCHC 33.2 (33.0-37.0) g/dL RDW 19.9 H (11.5-14.5) % Plt Count 140 (130-400) K/uL MPV 9.0 (7.2-11.7) fL Neut % (Auto) 97.3 H (50.0-75.0) % Lymph % (Auto) 1.6 L (20.0-40.0) % [place] % (Auto) 0.6 (0.0-10.0) % Eos % (Auto) 0.2 (0.0-4.0) % Baso % (Auto) 0.3 (0.0-2.0) % Neut # (Auto) 12.2 H (1.8-7.0) K/uL Lymph # (Auto) 0.2 L (1.0-4.3) K/uL [place] # (Auto) 0.1 (0.0-0.8) K/uL Eos # (Auto) 0.0 (0.0-0.7) K/uL Baso # (Auto) 0.0 (0.0-0.2) K/uL Neutrophils % (Manual) 71 (50-75) % Band Neutrophils % 21 H* (0-2) % Lymphocytes % (Manual) 3 L (20-40) % Reactive Lymphs % 1 H (0-0) % Monocytes % (Manual) 1 (0-10) % Metamyelocytes % 2 H (0-0) % Myelocytes % 1 H (0-0) % Nucleated RBC % 2 H (0-0) % Platelet Estimate Normal (NORMAL) Large Platelets Present Hypochromasia (manual) Moderate Poikilocytosis (manual Slight Anisocytosis (manual) Moderate Target Cells Moderate Ovalocytes Slight Sodium (132-148) mmol/L Potassium (3.6-5.2) mmol/L Chloride (98-107) mmol/L Carbon Dioxide (22-30) mmol/L Anion Gap (10-20) BUN (7-17) mg/dL Creatinine (0.7-1.2) mg/dL Est GFR ( Amer) Est GFR (Non-Af Amer) POC Glucose (mg/dL) 339 H 306 H (65-110) mg/dL Random Glucose (65-105) mg/dL Calcium (8.6-10.4) mg/dl Phosphorus (2.5-4.5) mg/dL Magnesium (1.6-2.3) mg/dL Total Bilirubin (0.2-1.3) mg/dL AST (14-36) U/L ALT (9-52) U/L Alkaline Phosphatase (38-126) U/L Total Protein (6.3-8.3) g/dL Albumin (3.5-5.0) g/dL Globulin (2.2-3.9) gm/dL Albumin/Globulin Ratio (1.0-2.1) Random Vancomycin ug/mL 03/19/18 03/19/18 Range/Units 23:33 17:21 WBC (4.8-10.8) K/uL RBC (3.80-5.20) Mil/uL Hgb (11.0-16.0) g/dL Hct (34.0-47.0) % MCV (81.0-99.0) fL MCH (27.0-31.0) pg MCHC (33.0-37.0) g/dL RDW (11.5-14.5) % Plt Count (130-400) K/uL MPV (7.2-11.7) fL Neut % (Auto) (50.0-75.0) % Lymph % (Auto) (20.0-40.0) % [place] % (Auto) (0.0-10.0) % Eos % (Auto) (0.0-4.0) % Baso % (Auto) (0.0-2.0) % Neut # (Auto) (1.8-7.0) K/uL Lymph # (Auto) (1.0-4.3) K/uL [place] # (Auto) (0.0-0.8) K/uL Eos # (Auto) (0.0-0.7) K/uL Baso # (Auto) (0.0-0.2) K/uL Neutrophils % (Manual) (50-75) % Band Neutrophils % (0-2) % Lymphocytes % (Manual) (20-40) % Reactive Lymphs % (0-0) % Monocytes % (Manual) (0-10) % Metamyelocytes % (0-0) % Myelocytes % (0-0) % Nucleated RBC % (0-0) % Platelet Estimate (NORMAL) Large Platelets Hypochromasia (manual) Poikilocytosis (manual Anisocytosis (manual) Target Cells Ovalocytes Sodium (132-148) mmol/L Potassium (3.6-5.2) mmol/L Chloride (98-107) mmol/L Carbon Dioxide (22-30) mmol/L Anion Gap (10-20) BUN (7-17) mg/dL Creatinine (0.7-1.2) mg/dL Est GFR ( Amer) Est GFR (Non-Af Amer) POC Glucose (mg/dL) 243 H 214 H (65-110) mg/dL Random Glucose (65-105) mg/dL Calcium (8.6-10.4) mg/dl Phosphorus (2.5-4.5) mg/dL Magnesium (1.6-2.3) mg/dL Total Bilirubin (0.2-1.3) mg/dL AST (14-36) U/L ALT (9-52) U/L Alkaline Phosphatase (38-126) U/L Total Protein (6.3-8.3) g/dL Albumin (3.5-5.0) g/dL Globulin (2.2-3.9) gm/dL Albumin/Globulin Ratio (1.0-2.1) Random Vancomycin ug/mL Laboratory Results - last 24 hr 03/19/18 03/19/18 03/20/18 17:21 23:33 05:59 WBC RBC Hgb Hct MCV MCH MCHC RDW Plt Count MPV Neut % (Auto) Lymph % (Auto) [place] % (Auto) Eos % (Auto) Baso % (Auto) Neut # (Auto) Lymph # (Auto) [place] # (Auto) Eos # (Auto) Baso # (Auto) Neutrophils % (Manual) Band Neutrophils % Lymphocytes % (Manual) Reactive Lymphs % Monocytes % (Manual) Metamyelocytes % Myelocytes % Nucleated RBC % Platelet Estimate Large Platelets Hypochromasia (manual) Poikilocytosis (manual Anisocytosis (manual) Target Cells Ovalocytes Sodium Potassium Chloride Carbon Dioxide Anion Gap BUN Creatinine Est GFR ( Amer) Est GFR (Non-Af Amer) POC Glucose (mg/dL) 214 H 243 H 306 H Random Glucose Calcium Phosphorus Magnesium Total Bilirubin AST ALT Alkaline Phosphatase Total Protein Albumin Globulin Albumin/Globulin Ratio Random Vancomycin 03/20/18 03/20/18 03/20/18 06:06 06:17 06:17 WBC 12.6 H D RBC 3.04 L Hgb 8.0 L Hct 24.3 L MCV 79.8 L MCH 26.5 L MCHC 33.2 RDW 19.9 H Plt Count 140 MPV 9.0 Neut % (Auto) 97.3 H Lymph % (Auto) 1.6 L [place] % (Auto) 0.6 Eos % (Auto) 0.2 Baso % (Auto) 0.3 Neut # (Auto) 12.2 H Lymph # (Auto) 0.2 L [place] # (Auto) 0.1 Eos # (Auto) 0.0 Baso # (Auto) 0.0 Neutrophils % (Manual) 71 Band Neutrophils % 21 H* Lymphocytes % (Manual) 3 L Reactive Lymphs % 1 H Monocytes % (Manual) 1 Metamyelocytes % 2 H Myelocytes % 1 H Nucleated RBC % 2 H Platelet Estimate Normal Large Platelets Present Hypochromasia (manual) Moderate Poikilocytosis (manual Slight Anisocytosis (manual) Moderate Target Cells Moderate Ovalocytes Slight Sodium 142 Potassium 4.0 Chloride 113 H Carbon Dioxide 16 L Anion Gap 17 BUN 13 Creatinine 0.7 Est GFR ( Amer) > 60 Est GFR (Non-Af Amer) > 60 POC Glucose (mg/dL) 339 H Random Glucose 259 H Calcium 8.1 L Phosphorus 2.6 Magnesium 1.5 L Total Bilirubin 2.4 H AST 56 H ALT 32 Alkaline Phosphatase 373 H D Total Protein 4.9 L Albumin 2.2 L Globulin 2.7 Albumin/Globulin Ratio 0.8 L Random Vancomycin 03/20/18 03/20/18 11:34 12:16 WBC RBC Hgb Hct MCV MCH MCHC RDW Plt Count MPV Neut % (Auto) Lymph % (Auto) [place] % (Auto) Eos % (Auto) Baso % (Auto) Neut # (Auto) Lymph # (Auto) [place] # (Auto) Eos # (Auto) Baso # (Auto) Neutrophils % (Manual) Band Neutrophils % Lymphocytes % (Manual) Reactive Lymphs % Monocytes % (Manual) Metamyelocytes % Myelocytes % Nucleated RBC % Platelet Estimate Large Platelets Hypochromasia (manual) Poikilocytosis (manual Anisocytosis (manual) Target Cells Ovalocytes Sodium Potassium Chloride Carbon Dioxide Anion Gap BUN Creatinine Est GFR ( Amer) Est GFR (Non-Af Amer) POC Glucose (mg/dL) 199 H Random Glucose Calcium Phosphorus Magnesium Total Bilirubin AST ALT Alkaline Phosphatase Total Protein Albumin Globulin Albumin/Globulin Ratio Random Vancomycin 17.8 Fingerstick Blood Sugar Results: 199 Review of Systems - Review of Systems Systems not reviewed;Unavailable: Altered Mental Status Critical Care Progress Note - Nutrition Nutrition: Nutrition Category Date Time Status NPO Diet [DIET] Diets 03/15/18 Breakfast Active Assessment/Plan - Assessment and Plan (Free Text) Assessment: 82 year old female with history of HTN, HLD, dementia, seizure disorder who was initially admitted for altered mental status, with decreased PO intake and weight loss. Patient was found to have a UTI. Patient had a peg tube placed on . Unable to tolerate feeds with vomiting. Subsequent CT revealed large volume pneumoperitoneum and small bilateral PE with pulmonary vascular congestion. Code sepsis was called after patient was noted to have elevated lactate with hypotension. Right upper extremity noted to be swollen s/p PICC line attempt. Plan: Neuro: Hx of dementia, altered at baseline Opens eyes spontaneously Nonverbal at baseline Cardiovascular currently on Levophed Right femoral TLC in place, no evidence of infection at site Unable to place PICC line in arms, cannot remove femoral TLC given no central line access yet Slightly tachycardic at 115s Pulmonary 03/16 Dopplers: negative for thrombus 03/15 CT chest: bilateral PE with pulmonary vascular congestion. Oxygenating well on NC. RUE doppler: negative Plan for possible IVC filter today GI s/p PEG on 03/12/[address] Naranjo 03/15 Abdomen/pelvis CT: Recent gastrostomy tube with large volume pneumoperitoneum and thickening of distal stomach/duodenum 03/15 Abdomen XR: large volume pneumoperitoneum 03/14 Abdomen/pelvis CT without contrast: Gallstone without CT evidence of acute cholecystitis. Moderate amount of free air noted in the anterior aspect of the upper abdomen likely related to recent insertion of G tube. The possibility of air lead around the G tube is not totally excluded. Mildly distended large bowel may represent mild bowel ileus. No evidence of bowel obstrution. No evidence of nephrolithiasis or hydronephrosis. Small right pleural effuison and mild cardiomegaly. PPNs discontinued today. On feeds, monitor for emesis GI Dr. Lucero/Tylor consulted Surgery Dr. Enriqueta consulted Renal Continue to monitor electrolytes, replete as necessary I &Os, currently in + balance NS @ 100cc/hr IV Albumin 12.5mg Q12 IV Endo maintain euglycemia ID Febrile overnight UA 2+ LE, Urine cultures + Enterococcus fecalis, repeat urine cultures negative Blood cultures: positive for Elisabeth Glabrata, Corynebacterium, Coagulase neg Staph, and Enterococcus fecalis Dr. Zuleta on board Right femoral TLC still in place for pressors Zosyn 3.375g IV Day 6, Vancomycin 1g IV day 6, Micafungin Day 2 Heme/Onc H/H 8.0/24.3 White count 12.6 with bands of 21 Platelets 140 Continue to monitor Patient is s/p 1 unit PRBCs on 03/16 PPX: Protonix, SCDs. Case discussed with Dr. Hare <Julio Hare - Last Filed: 03/20/18 21:07> CCU Objective - Vital Signs / Intake & Output Vital Signs (Last 4 hours): Vital Signs Pulse Resp BP Pulse Ox 03/20/18 19:40 118 H 21 100 03/20/18 19:30 134 H 22 100 03/20/18 19:20 117 H 20 99 03/20/18 19:15 116 H 22 106/55 L 100 03/20/18 19:00 116 H 20 100 03/20/18 18:30 114 H 21 100 03/20/18 18:20 112 H 19 100 03/20/18 18:15 113 H 22 111/48 L 98 03/20/18 18:10 111 H 20 100 03/20/18 18:00 116 H 20 85 L 03/20/18 17:50 132 H 20 100 03/20/18 17:30 132 H 20 100 03/20/18 17:15 100/47 L 03/20/18 17:14 132 H 20 100 03/20/18 17:10 134 H 19 100 Intake and Output (Last 8hrs): Intake & Output 03/20/18 03/20/18 03/20/18 06:59 14:59 22:59 Intake Total 540.4 1296.9 733.5 Output Total 90 130 75 Balance 450.4 1166.9 658.5 Intake: IV 182 68 Intake, IV Amount 510.4 1114.9 665.5 Right Distal Port Femoral 100 700 600 right groin proximal 336 336 right medial port 74.4 78.9 65.5 Oral 0 0 Tube Feeding 30 Output: Urine 90 130 75 Urethral (Ricardo) 90 130 75 - Medications Active Medications: Active Medications Generic Name Dose Route Start Last Admin Trade Name Freq PRN Reason Stop Dose Admin Albuterol/Ipratropium 3 ml 03/19/18 12:00 03/20/18 20:15 Duoneb 3 Mg/0.5 Mg (3 Ml) Ud INH 3 ml RQ4 TANJA Administration Norepinephrine Bitartrate 8 mg 250 mls @ 7.5 mls/hr 03/16/18 18:15 03/20/18 16:30 / Sodium Chloride IV 7 mcg/min .Q24H PRN 13.12 mls/hr TITRATE PER MD ORDER Administration Protocol 4 MCG/MIN Micafungin Sodium 100 mg/ 100 mls @ 100 mls/hr 03/19/18 18:30 03/20/18 18:34 Sodium Chloride IV 100 mls/hr Q24H TANJA Administration Protocol Sodium Chloride 1,000 mls @ 100 mls/hr 03/20/18 06:15 03/20/18 19:22 Sodium Chloride 0.9% IV Not Given .Q10H TANJA Vancomycin HCl 1 gm/ Sodium 200 mls @ 167 mls/hr 03/20/18 16:00 03/20/18 15: 01 Chloride IVPB 167 mls/hr Q24H TANJA Administration Protocol Piperacillin Sod/Tazobactam Sod 3.375 gm in 50 mls @ 100 mls/hr 03/20/18 14: 00 03/20/18 14:10 Zosyn 3.375 Gm Iv Premix IVPB Not Given Q8H [facility] Protocol Insulin Aspart 0 unit 03/20/18 06:21 03/20/18 19:35 Novolog SC 4 units Q6 [facility] Administration Protocol Pantoprazole Sodium 40 mg 03/16/18 11:00 03/20/18 09:37 Protonix Inj IVP 40 mg Q12 TANJA Administration - Patient Studies Lab Studies: Lab Studies 03/20/18 03/20/18 03/20/18 Range/Units 12:16 11:34 06:17 WBC (4.8-10.8) K/uL RBC (3.80-5.20) Mil/uL Hgb (11.0-16.0) g/dL Hct (34.0-47.0) % MCV (81.0-99.0) fL MCH (27.0-31.0) pg MCHC (33.0-37.0) g/dL RDW (11.5-14.5) % Plt Count (130-400) K/uL MPV (7.2-11.7) fL Neut % (Auto) (50.0-75.0) % Lymph % (Auto) (20.0-40.0) % [place] % (Auto) (0.0-10.0) % Eos % (Auto) (0.0-4.0) % Baso % (Auto) (0.0-2.0) % Neut # (Auto) (1.8-7.0) K/uL Lymph # (Auto) (1.0-4.3) K/uL [place] # (Auto) (0.0-0.8) K/uL Eos # (Auto) (0.0-0.7) K/uL Baso # (Auto) (0.0-0.2) K/uL Neutrophils % (Manual) (50-75) % Band Neutrophils % (0-2) % Lymphocytes % (Manual) (20-40) % Reactive Lymphs % (0-0) % Monocytes % (Manual) (0-10) % Metamyelocytes % (0-0) % Myelocytes % (0-0) % Nucleated RBC % (0-0) % Platelet Estimate (NORMAL) Large Platelets Hypochromasia (manual) Poikilocytosis (manual Anisocytosis (manual) Target Cells Ovalocytes Sodium 142 (132-148) mmol/L Potassium 4.0 (3.6-5.2) mmol/L Chloride 113 H (98-107) mmol/L Carbon Dioxide 16 L (22-30) mmol/L Anion Gap 17 (10-20) BUN 13 (7-17) mg/dL Creatinine 0.7 (0.7-1.2) mg/dL Est GFR ( Amer) > 60 Est GFR (Non-Af Amer) > 60 POC Glucose (mg/dL) 199 H (65-110) mg/dL Random Glucose 259 H (65-105) mg/dL Calcium 8.1 L (8.6-10.4) mg/dl Phosphorus 2.6 (2.5-4.5) mg/dL Magnesium 1.5 L (1.6-2.3) mg/dL Total Bilirubin 2.4 H (0.2-1.3) mg/dL AST 56 H (14-36) U/L ALT 32 (9-52) U/L Alkaline Phosphatase 373 H D (38-126) U/L Total Protein 4.9 L (6.3-8.3) g/dL Albumin 2.2 L (3.5-5.0) g/dL Globulin 2.7 (2.2-3.9) gm/dL Albumin/Globulin Ratio 0.8 L (1.0-2.1) Random Vancomycin 17.8 ug/mL 03/20/18 03/20/18 03/20/18 Range/Units 06:17 06:06 05:59 WBC 12.6 H D (4.8-10.8) K/uL RBC 3.04 L (3.80-5.20) Mil/uL Hgb 8.0 L (11.0-16.0) g/dL Hct 24.3 L (34.0-47.0) % MCV 79.8 L (81.0-99.0) fL MCH 26.5 L (27.0-31.0) pg MCHC 33.2 (33.0-37.0) g/dL RDW 19.9 H (11.5-14.5) % Plt Count 140 (130-400) K/uL MPV 9.0 (7.2-11.7) fL Neut % (Auto) 97.3 H (50.0-75.0) % Lymph % (Auto) 1.6 L (20.0-40.0) % [place] % (Auto) 0.6 (0.0-10.0) % Eos % (Auto) 0.2 (0.0-4.0) % Baso % (Auto) 0.3 (0.0-2.0) % Neut # (Auto) 12.2 H (1.8-7.0) K/uL Lymph # (Auto) 0.2 L (1.0-4.3) K/uL [place] # (Auto) 0.1 (0.0-0.8) K/uL Eos # (Auto) 0.0 (0.0-0.7) K/uL Baso # (Auto) 0.0 (0.0-0.2) K/uL Neutrophils % (Manual) 71 (50-75) % Band Neutrophils % 21 H* (0-2) % Lymphocytes % (Manual) 3 L (20-40) % Reactive Lymphs % 1 H (0-0) % Monocytes % (Manual) 1 (0-10) % Metamyelocytes % 2 H (0-0) % Myelocytes % 1 H (0-0) % Nucleated RBC % 2 H (0-0) % Platelet Estimate Normal (NORMAL) Large Platelets Present Hypochromasia (manual) Moderate Poikilocytosis (manual Slight Anisocytosis (manual) Moderate Target Cells Moderate Ovalocytes Slight Sodium (132-148) mmol/L Potassium (3.6-5.2) mmol/L Chloride (98-107) mmol/L Carbon Dioxide (22-30) mmol/L Anion Gap (10-20) BUN (7-17) mg/dL Creatinine (0.7-1.2) mg/dL Est GFR ( Amer) Est GFR (Non-Af Amer) POC Glucose (mg/dL) 339 H 306 H (65-110) mg/dL Random Glucose (65-105) mg/dL Calcium (8.6-10.4) mg/dl Phosphorus (2.5-4.5) mg/dL Magnesium (1.6-2.3) mg/dL Total Bilirubin (0.2-1.3) mg/dL AST (14-36) U/L ALT (9-52) U/L Alkaline Phosphatase (38-126) U/L Total Protein (6.3-8.3) g/dL Albumin (3.5-5.0) g/dL Globulin (2.2-3.9) gm/dL Albumin/Globulin Ratio (1.0-2.1) Random Vancomycin ug/mL 03/19/18 Range/Units 23:33 WBC (4.8-10.8) K/uL RBC (3.80-5.20) Mil/uL Hgb (11.0-16.0) g/dL Hct (34.0-47.0) % MCV (81.0-99.0) fL MCH (27.0-31.0) pg MCHC (33.0-37.0) g/dL RDW (11.5-14.5) % Plt Count (130-400) K/uL MPV (7.2-11.7) fL Neut % (Auto) (50.0-75.0) % Lymph % (Auto) (20.0-40.0) % [place] % (Auto) (0.0-10.0) % Eos % (Auto) (0.0-4.0) % Baso % (Auto) (0.0-2.0) % Neut # (Auto) (1.8-7.0) K/uL Lymph # (Auto) (1.0-4.3) K/uL [place] # (Auto) (0.0-0.8) K/uL Eos # (Auto) (0.0-0.7) K/uL Baso # (Auto) (0.0-0.2) K/uL Neutrophils % (Manual) (50-75) % Band Neutrophils % (0-2) % Lymphocytes % (Manual) (20-40) % Reactive Lymphs % (0-0) % Monocytes % (Manual) (0-10) % Metamyelocytes % (0-0) % Myelocytes % (0-0) % Nucleated RBC % (0-0) % Platelet Estimate (NORMAL) Large Platelets Hypochromasia (manual) Poikilocytosis (manual Anisocytosis (manual) Target Cells Ovalocytes Sodium (132-148) mmol/L Potassium (3.6-5.2) mmol/L Chloride (98-107) mmol/L Carbon Dioxide (22-30) mmol/L Anion Gap (10-20) BUN (7-17) mg/dL Creatinine (0.7-1.2) mg/dL Est GFR ( Amer) Est GFR (Non-Af Amer) POC Glucose (mg/dL) 243 H (65-110) mg/dL Random Glucose (65-105) mg/dL Calcium (8.6-10.4) mg/dl Phosphorus (2.5-4.5) mg/dL Magnesium (1.6-2.3) mg/dL Total Bilirubin (0.2-1.3) mg/dL AST (14-36) U/L ALT (9-52) U/L Alkaline Phosphatase (38-126) U/L Total Protein (6.3-8.3) g/dL Albumin (3.5-5.0) g/dL Globulin (2.2-3.9) gm/dL Albumin/Globulin Ratio (1.0-2.1) Random Vancomycin ug/mL Laboratory Results - last 24 hr 03/19/18 03/20/18 03/20/18 23:33 05:59 06:06 WBC RBC Hgb Hct MCV MCH MCHC RDW Plt Count MPV Neut % (Auto) Lymph % (Auto) [place] % (Auto) Eos % (Auto) Baso % (Auto) Neut # (Auto) Lymph # (Auto) [place] # (Auto) Eos # (Auto) Baso # (Auto) Neutrophils % (Manual) Band Neutrophils % Lymphocytes % (Manual) Reactive Lymphs % Monocytes % (Manual) Metamyelocytes % Myelocytes % Nucleated RBC % Platelet Estimate Large Platelets Hypochromasia (manual) Poikilocytosis (manual Anisocytosis (manual) Target Cells Ovalocytes Sodium Potassium Chloride Carbon Dioxide Anion Gap BUN Creatinine Est GFR ( Amer) Est GFR (Non-Af Amer) POC Glucose (mg/dL) 243 H 306 H 339 H Random Glucose Calcium Phosphorus Magnesium Total Bilirubin AST ALT Alkaline Phosphatase Total Protein Albumin Globulin Albumin/Globulin Ratio Random Vancomycin 03/20/18 03/20/18 03/20/18 06:17 06:17 11:34 WBC 12.6 H D RBC 3.04 L Hgb 8.0 L Hct 24.3 L MCV 79.8 L MCH 26.5 L MCHC 33.2 RDW 19.9 H Plt Count 140 MPV 9.0 Neut % (Auto) 97.3 H Lymph % (Auto) 1.6 L [place] % (Auto) 0.6 Eos % (Auto) 0.2 Baso % (Auto) 0.3 Neut # (Auto) 12.2 H Lymph # (Auto) 0.2 L [place] # (Auto) 0.1 Eos # (Auto) 0.0 Baso # (Auto) 0.0 Neutrophils % (Manual) 71 Band Neutrophils % 21 H* Lymphocytes % (Manual) 3 L Reactive Lymphs % 1 H Monocytes % (Manual) 1 Metamyelocytes % 2 H Myelocytes % 1 H Nucleated RBC % 2 H Platelet Estimate Normal Large Platelets Present Hypochromasia (manual) Moderate Poikilocytosis (manual Slight Anisocytosis (manual) Moderate Target Cells Moderate Ovalocytes Slight Sodium 142 Potassium 4.0 Chloride 113 H Carbon Dioxide 16 L Anion Gap 17 BUN 13 Creatinine 0.7 Est GFR ( Amer) > 60 Est GFR (Non-Af Amer) > 60 POC Glucose (mg/dL) Random Glucose 259 H Calcium 8.1 L Phosphorus 2.6 Magnesium 1.5 L Total Bilirubin 2.4 H AST 56 H ALT 32 Alkaline Phosphatase 373 H D Total Protein 4.9 L Albumin 2.2 L Globulin 2.7 Albumin/Globulin Ratio 0.8 L Random Vancomycin 17.8 03/20/18 12:16 WBC RBC Hgb Hct MCV MCH MCHC RDW Plt Count MPV Neut % (Auto) Lymph % (Auto) [place] % (Auto) Eos % (Auto) Baso % (Auto) Neut # (Auto) Lymph # (Auto) [place] # (Auto) Eos # (Auto) Baso # (Auto) Neutrophils % (Manual) Band Neutrophils % Lymphocytes % (Manual) Reactive Lymphs % Monocytes % (Manual) Metamyelocytes % Myelocytes % Nucleated RBC % Platelet Estimate Large Platelets Hypochromasia (manual) Poikilocytosis (manual Anisocytosis (manual) Target Cells Ovalocytes Sodium Potassium Chloride Carbon Dioxide Anion Gap BUN Creatinine Est GFR ( Amer) Est GFR (Non-Af Amer) POC Glucose (mg/dL) 199 H Random Glucose Calcium Phosphorus Magnesium Total Bilirubin AST ALT Alkaline Phosphatase Total Protein Albumin Globulin Albumin/Globulin Ratio Random Vancomycin Critical Care Progress Note - Nutrition Nutrition: Nutrition Category Date Time Status NPO Diet [DIET] Diets 03/15/18 Breakfast Active Attending/Attestation - Attestation I have personally seen and examined this patient.: Yes I have fully participated in the care of the patient.: Yes I have reviewed all pertinent clinical information: Yes Notes (Text): 03/20/18 21:05 The patient was Seen/interviewed and examined by me at the bedside during ICU round, Medical records reviewed and Management issues were discussed and formulated with the house staff. Events reviewed I have reviewed all the relevant clinical, laboratory, hemodynamic, radiographic data and medications Pain issues, skin care, head of the bed elevation, glycemic control were addressed. I concur with resident's assessment and plan of care as transcribed in Dr. Sadler note. Total critical care time 35 minutes
[2018-03-20] MEDS ORDERED: HEPARIN-NS 5,000 UNITS/500 ML 0 UNIT/0 ML BAG IV ONE (14:45)
[2018-03-20] MEDS ORDERED: Iohexol 240 (50 ml) ONE (14:46)
[2018-03-20] MEDS ORDERED: Vancomycin 1 GM in Sodium Chloride 0.9% 200 ML IVPB SCH (16:00)
--- NOTE | 2018-03-20 16:27 | CARD ---
APPROVED REPORT Date of service: 03/20/2018 EXAM: Two-dimensional and M-mode echocardiogram with Doppler and color Doppler. Other Information Quality : TDSRhythm : INDICATION Infection:Rule out subacute bacterial endocarditis RISK FACTORS Hypertension 2D DIMENSIONS IVSd0.9 (0.7-1.1cm)LVDd3.5 (3.9-5.9cm) LVOT Diameter1.6 (1.8-2.4cm)PWd1.0 (0.7-1.1cm) LVDs2.9 (2.5-4.0cm)FS (%) 19.1 % LVEF (%)40.2 (>50%) M-Mode DIMENSIONS Left Atrium (MM)3.42 (2.5-4.0cm)IVSd0.94 (0.7-1.1cm) Aortic Root3.25 (2.2-3.7cm)LVDd4.63 (4.0-5.6cm) Aortic Cusp Exc.0.90 (1.5-2.0cm)PWd0.92 (0.7-1.1cm) FS (%) 29 %LVDs3.31 (2.0-3.8cm) LVEF (%)40 (>50%) Aortic Valve AoV Peak Hyljymbw568.1cm/sAoV VTI85.2cmAO Peak GR.70mmHg LVOT Peak Gxgaoidc50.7cm/sLVOT VTI17.50cmAO Mean GR.46mmHg BARRY (VMAX)0.35pu1HCN (VTI)0.41cm2 Mitral Valve MV E Twsxuhzd971.2cm/sMV E Peak Gr.16mmHgMV A Kreoyyhj654.3cm/s MV E Mean Gr.8mmHgMV UMK28rjN/A ratio0.9 MVA (PHT)4.28cm2 TDI E/Lateral E'0.0E/Medial E'0.0 Tricuspid Valve TR Peak Lrrhayua264ar/sTR Peak Gr.63byHmBFJJ62fgOo LEFT VENTRICLE The left ventricle is normal size. There is normal left ventricular wall thickness. The systolic function is moderately impaired. There is global hypokinesis of the left ventricle. Transmitral Doppler flow pattern is Grade I-abnormal relaxation pattern. No left ventricle thrombus noted on this study. RIGHT VENTRICLE The right ventricle is normal size. There is normal right ventricular wall thickness. The right ventricular systolic function is normal. ATRIA The left atrium is mildly dilated. The right atrium size is normal. AORTIC VALVE The aortic valve is severely calcified. There is trace aortic regurgitation. There is severe calcific valvular aortic stenosis. MITRAL VALVE The mitral valve is calcified and displays decreased opening. There is no mitral valve stenosis. Mitral regurgitation is mild. TRICUSPID VALVE The tricuspid valve is normal in structure. There is moderate tricuspid regurgitation. There is moderate pulmonary hypertension. PULMONIC VALVE The pulmonary valve is normal in structure. There is trace pulmonic valvular regurgitation. GREAT VESSELS The aortic root is normal in size. The IVC is normal in size and collapses >50% with inspiration. PERICARDIAL EFFUSION There is no pericardial effusion. There is moderate left pleural effusion. <Conclusion> The left ventricle is normal size. There is normal left ventricular wall thickness. The systolic function is moderately impaired. There is global hypokinesis of the left ventricle. Transmitral Doppler flow pattern is Grade I-abnormal relaxation pattern. There is severe calcific valvular aortic stenosis. Mitral regurgitation is mild. There is moderate tricuspid regurgitation. There is moderate pulmonary hypertension.
[2018-03-20] MEDS: Norepinephrine 8 MG in Sodium Chloride 0.9% 242 ML IV PRN (16:30)
--- NOTE | 2018-03-20 16:58 | VASCLAB ---
Date of service: 03/19/2018 PROCEDURE: Upper Extremity Venous Duplex Exam HISTORY: swelling of upper extremity PRIORS: None. TECHNIQUE: Bilateral upper extremity, internal jugular, subclavian, axillary, brachial, ulnar, radial, basilic and upper cephalic veins were evaluated. Flow was assessed with color Doppler, compressibility, assessment of phasic flow and augmentation response. Report prepared by Carlos Pereira, BS, RVT FINDINGS: RIGHT: 1. Internal Jugular: 1.1. Compressibility - Fully compressible: Thrombus - None : Flow - Phasic: Augmentation -Normal: Reflux - None. 2. Subclavian: 2.1. Compressibility - Fully compressible: Thrombus - None : Flow - Phasic: Augmentation -Normal: Reflux - None. 3. Axillary: 3.1. Compressibility - Fully compressible: Thrombus - None : Flow - Phasic: Augmentation -Normal: Reflux - None. 4. Brachial: 4.1. Compressibility - Fully compressible: Thrombus - None: Flow - Phasic: Augmentation -Normal: Reflux - None. 5. Ulnar: 5.1. Compressibility - Fully compressible: Thrombus - None: Flow - Phasic: Augmentation -Normal: Reflux - None. 6. Radial: 6.1. Compressibility - Fully compressible: Thrombus - None: Flow - Phasic: Augmentation - Normal: Reflux - None. 7. Cephalic: 7.1. Compressibility - Fully compressible: Thrombus - None: Flow - Phasic: Augmentation -Normal: Reflux - None. 8. Basilic: 8.1. Compressibility - : Thrombus - : Flow - : Augmentation -: Reflux - . LEFT: 1. Internal Jugular: 1.1. Compressibility - Fully compressible: Thrombus - None : Flow - Phasic: Augmentation -Normal: Reflux - None. 2. Subclavian: 2.1. Compressibility - Fully compressible: Thrombus - None : Flow - Phasic: Augmentation -Normal: Reflux - None. 3. Axillary: 3.1. Compressibility - Fully compressible: Thrombus - None : Flow - Phasic: Augmentation -Normal: Reflux - None. 4. Brachial: 4.1. Compressibility - Fully compressible: Thrombus - None: Flow - Phasic: Augmentation -Normal: Reflux - None. 5. Ulnar: 5.1. Compressibility - Fully compressible: Thrombus - None: Flow - Phasic: Augmentation -Normal: Reflux - None. 6. Radial: 6.1. Compressibility - Fully compressible: Thrombus - None: Flow - Phasic: Augmentation - Normal: Reflux - None. 7. Cephalic: 7.1. Compressibility - Fully compressible: Thrombus - None: Flow - Phasic: Augmentation -Normal: Reflux - None. 8. Basilic: 8.1. Compressibility - : Thrombus - : Flow - : Augmentation -: Reflux - . OTHER FINDINGS: Unable to image bilateral basilic veins due to patient positioning. Technically limited study due to severe swelling. IMPRESSION: Right: No evidence of vein thrombosis of the right upper extremity with excellent venous flow. Normal valve function noted of the right side. Left: No evidence of vein thrombosis of the left upper extremity with excellent venous flow. Normal valve function noted of the left side.
[2018-03-20] MEDS ORDERED: PPN #4 IV ONE (18:00)
[2018-03-20] MEDS: Micafungin 100 MG in Sodium Chloride 0.9% 100 ML IV SCH (18:34)
--- NOTE | 2018-03-20 20:52 | CP.PCM.PN ---
Subjective - Date & Time of Evaluation Date of Evaluation: 03/20/18 Time of Evaluation: 20:52 - Subjective Subjective: poor progrnosis spoke to patient family seen by palliative care Objective - Vital Signs/Intake and Output Vital Signs (last 24 hours): Temp Pulse Resp BP Pulse Ox 98.7 F 118 H 21 106/55 L 100 03/20/18 16:00 03/20/18 19:40 03/20/18 19:40 03/20/18 19:15 03/20/18 19:40 Intake and Output: 03/20/18 03/21/18 18:59 06:59 Intake Total 1917.3 113.1 Output Total 205 Balance 1712.3 113.1 - Medications Medications: Current Medications Albuterol/Ipratropium (Duoneb 3 Mg/0.5 Mg (3 Ml) Ud) 3 ml INH RQ4 TANJA Last Admin: 03/20/18 20:15 Dose: 3 ml Norepinephrine Bitartrate 8 mg (/ Sodium Chloride) 250 mls @ 7.5 mls/hr IV .Q24H PRN; Protocol; 4 MCG/MIN PRN Reason: TITRATE PER MD ORDER Last Admin: 03/20/18 16:30 Dose: 7 mcg/min, 13.12 mls/hr Micafungin Sodium 100 mg/ (Sodium Chloride) 100 mls @ 100 mls/hr IV Q24H TANJA PRN Reason: Protocol Last Admin: 03/20/18 18:34 Dose: 100 mls/hr Sodium Chloride (Sodium Chloride 0.9%) 1,000 mls @ 100 mls/hr IV .Q10H TANJA Last Admin: 03/20/18 19:22 Dose: Not Given Vancomycin HCl 1 gm/ Sodium (Chloride) 200 mls @ 167 mls/hr IVPB Q24H TAJNA PRN Reason: Protocol Last Admin: 03/20/18 15:01 Dose: 167 mls/hr Piperacillin Sod/Tazobactam Sod (Zosyn 3.375 Gm Iv Premix) 3.375 gm in 50 mls @ 100 mls/hr IVPB Q8H TANJA PRN Reason: Protocol Last Admin: 03/20/18 14:10 Dose: Not Given Insulin Aspart (Novolog) 0 unit SC Q6 TANJA PRN Reason: Protocol Last Admin: 09/20/18 19:35 Dose: 4 units Pantoprazole Sodium (Protonix Inj) 40 mg IVP Q12 TANJA Last Admin: 03/20/18 09:37 Dose: 40 mg - Labs Labs: 03/20/18 06:17 03/20/18 06:17 PT 14.3 SECONDS (9.7-12.2) H 03/15/18 14:20 INR 1.3 03/15/18 14:20 APTT 32 SECONDS (21-34) 03/15/18 14:20
--- NOTE | 2018-03-20 21:18 | PN ---
DATE: 03/20/2018 LOCATION: ICU 1. SUBJECTIVE: This is an 82-year-old female, seen and examined early in rounds without significant clinical changes, somewhat appeared to be more lethargic and nonverbal, incontinent of fecal material with soft stool without reported evidence of GI active bleeding. The entire chart is reviewed including but not limited to the most recent lab and radiology study results, current and previous medication lists, current and the previous medical events. PEG tube is still in place. The patient is still in Levophed. LABORATORY DATA: Today's lab showed 12.6, hemoglobin 8, hematocrit 24.3 with low indices. Blood glucose level 199, calcium 8.1, magnesium 1.5. Total bilirubin 2.24, AST of 56, albumin 2.2, total protein 4.9. PHYSICAL EXAMINATION: GENERAL: An 82-year-old female. VITAL SIGNS: Afebrile with a pulse of 106, respiratory rate 20 to 22 with blood pressure of 94/56. HEENT: Showed pale, dry oral mucous membranes. Slight icteric sclerae bilaterally. HEART: S1 and S2. ABDOMEN: Soft. There is mild generalized tenderness. No mass or organomegaly. No rebound tenderness or guarding. EXTREMITIES: No significant clubbing, cyanosis, or edema. NEUROLOGIC: No reported new neurological deficits, sensory or motor. IMPRESSION: 1. Malnutrition. 2. Failure to thrive. 3. Hypoalbuminemia. 4. Status post percutaneous endoscopic gastrostomy insertion. 5. Anemia, most likely secondary to chronic disease. 6. Bacteremia. SUGGESTIONS: 1. Continue current management. 2. Central hyperalimentation. 3. If there is subsequent drop in hemoglobin and hematocrit, then upper endoscopy to be scheduled post blood transfusion if okay with the family members. 4. We will follow up closely with you. Derek Chapa MD
[2018-03-21] MEDS: (Novolog) Insulin Aspart, Recombinant 100 u/ml 10 ml vial SC SCH (00:15)
[2018-03-21] MEDS: Albuterol-Ipratrop 3 mg / 0.5 (3 ml) UD INH SCH ×2 (00:35→04:28)
[2018-03-21] MEDS: Sodium Chloride 0.9% 1,000 ML IV SCH (01:00)
[2018-03-21 02:45] VITALS: O2SAT 94
[2018-03-21 02:47] VITALS: TEMP 99.4
[2018-03-21 04:04] VITALS: BP 83/47; PULSE 107; RESP 18
--- NOTE | 2018-03-21 05:01 | CP.PCM.PRO ---
Pronouncement of Note - Clinical Findings Physical Exam: No Response Verbal/Painful Stimuli, Absent Peripheral Pulses{ Carotid & Femoral}, Absent Heart & Breath Sounds, No Pupillary Light Reflex, No Corneal Reflex, Pupils Fixed & Dilated, Absence of Vital Signs - Pronouncement Time Time of Pronouncement of : 04:56 - Notifications Pronouncement Notifications: Family Notified, Atending Notified Printer Slotter Helper Notified: No - Autopsy Autopsy Requested: No - [place] [id number]
--- NOTE | 2018-03-21 05:44 | CON ---
DATE: 03/20/2018 HISTORY OF PRESENT ILLNESS: Zonia Ortiz is an 82-year-old female. She was admitted on 03/05/2018, and this patient is a shelter resident. She is lethargic and unresponsive with dyspnea in the ICU and is seriously ill, most of the history is taken from the chart. However, the resident called me because the blood culture was positive for Elisabeth glabrata, even though it was not highlighted on the micro record. 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 The patient has history of hypertension, dementia, and seizure disorder, and hyperlipidemia. She was sent with altered mental status, and she has been here since 03/05/2018, so she has been here almost 2 weeks. PAST MEDICAL HISTORY: Hypotension , hyperlipidemia, seizure disorder. ALLERGIES: SHE IS NOT ALLERGIC TO ANY MEDICINE. FAMILY HISTORY: Not available. REVIEW OF SYSTEMS: Not available when she came in. She came with temperature of 97.3, pulse was 86, saturation 100%, and right now, she has weeping edema on both upper extremities, and she had a right groin catheter and that catheter is the main one that they are using, and they twice to put the PICC line in her upper extremities but failed due to edema, and the patient is also tested for DVT in the upper extremities which are negative, and she remains with generalized edema, and in ICU with ICU parachute/combatant diver officer managing the case. She has PEG tube also, and never smoked, hypertension. 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 Neurologically, she came with altered mental status, has dementia, history of seizures. HEENT: History of glaucoma. Musculoskeletal: Rheumatology, history of fall and unsteady gait. Psych history is negative. She is not allergic to any medicine, and so right now, I want to go where what is happening with her now. She remained edematous. She has a femoral line, and is still on Levophed. Her other medications that I want to go over are albuterol, DuoNeb, insulin. She is on Mycamine, norepinephrine, pantoprazole, Zosyn, sodium chloride, vancomycin so she is on vancomycin, Zosyn, and Mycamine, and I do not know why they did not give the Zosyn, may be because I decrease the dose interval. On review of system, I am unable to obtain, I was called in because of positive cultures. PHYSICAL EXAMINATION: VITAL SIGNS: On examination, I find T-max is 98.7, heart rate of 122, blood pressure 87/60. She is on Levophed, is lethargic. Respiratory rate is 20 to 22. HEENT: Eyes are tightly closed, unable to open her mouth. NECK: Supple. JVP is flat. LUNGS: Have coarse breath sounds. HEART: S1, S2 tachycardic. EXTREMITIES: She has weeping edema of upper extremities and ecchymosis. Have edema upper as well as lower. ABDOMEN: Has a PEG tube. PEG tube appears unremarkable. Bowel sounds are present. White count is 12.6, hemoglobin 8, hematocrit 24.3, platelet count is 140, bands are 21, lymphs are 3, BUN is 13, creatinine 0.7, glucose was 199. Urine culture had Enterococcus faecalis on 03/05/2018 which is sensitive to nitrofurantoin, ampicillin, and vancomycin sensitive but tetracycline resistant, and the blood culture had coagulase negative and Corynebacterium in one culture and the other one has blood culture they are saying Enterococcus faecalis and it says by [facility], so there is enterococcus which is also vancomycin sensitive, but on the culture report, requisition number [id number], we find that the [facility] blood culture shows Elisabeth glabrata. On 03/19/2018 by [facility], the workup shows coagulase-negative and Corynebacterium, so right now, we are covering with multiple things and chest x-ray. She had abdomen and pelvic CT done on 03/15/2018 which showed recent gastrostomy tube placement with large volume pneumoperitoneum and thickening of the distal stomach and duodenum in the abdominal CT, and the chest CT shows bilateral pulmonary emboli. No CT evidence of right heart strain, pulmonary vascular congestion, and small bilateral pleural effusion as subject to atelectasis, so she has pulmonary embolism with bilateral arm edema. She has bacteremia which may be mostly related to her groin catheter. However, we do not find this catheter needs to come out, and she may be better off having an IJ catheter as possible tomorrow, and continue the antibiotics at this time. Prognosis remains guarded. She has pulmonary embolism. She appears volume overloaded with pulmonary embolism and I cannot give anticoagulant so prognosis remains guarded but sepsis is most likely related to the catheter. We will follow. Costa Zuleta MD
--- NOTE | 2018-05-24 12:21 | PN ---
DATE: 03/19/2018 SUBJECTIVE: The patient was seen by me at 5:30 p.m. The patient earlier was seen by palliative care nurse practitioner. Information was discussed with the patient's family. Today, the vital signs are noted. Currently, the patient is receiving PPN, pantoprazole, norepinephrine drip, vancomycin, and Zosyn. LABORATORY DATA: Labs today, BUN 11, creatinine 0.6, hemoglobin 9.2, hematocrit 27.3, platelets 119. ASSESSMENT AND PLAN: The patient is an 82-year-old female with advanced dementia admitted with altered mental status, now having worsening mental status and also worsening medical condition. Discussed with the patient's family. Continue the current treatment and we will follow up the patient. Tyson Chavez MD
--- NOTE | 2018-05-24 12:24 | PN ---
DATE: 03/20/2018 SUBJECTIVE: The patient is now not responding well, the patient is also having increasing lethargy. PHYSICAL EXAMINATION: VITAL SIGNS: Temperature 98.3, pulse 114, respirations 20, saturation 100%. ASSESSMENT AND PLAN: Currently receiving antifungal treatment as per the ID, vancomycin, Zosyn, and also pantoprazole and Levophed. Blood pressure is on the low side. Initially consulted for surgical intervention for IVC filter but given the overall prognosis, it was discussed that there is not improvement in the overall medical condition. The patient will be closely monitored. We will continue the current treatment and we will follow up the patient. Tyson Chavez MD
--- NOTE | 2018-05-24 13:29 | PN ---
DATE: 03/17/2018 SUBJECTIVE: The patient was seen by me in the intensive care unit. Vital signs in the ICU; temperature 98.3, heart rate is 120 per minute, blood pressure is 93/51. The patient admitted to the intensive care unit with worsening altered mental status and hypotension. The patient is currently on norepinephrine drip. Also receiving vancomycin, Zosyn and IV fluid. LABORATORY DATA: Labs reviewed nonspecific. ASSESSMENT AND PLAN: The patient is an 82-year-old female with a history of hypertension, hyperlipidemia, dementia and seizures, admitted with altered mental status. The patient's overall medical condition got worse. After the gastrostomy tube, the patient developed pneumoperitoneum. Surgical evaluation is on. Overall prognosis very poor. Discussed with the patient's daughter. ELICIA RamirezD: 05/24/2018 9:06:39
--- NOTE | 2018-05-24 13:40 | PN ---
DATE: 03/18/2018 SUBJECTIVE: The patient currently in ICU bed 1. The patient was seen by ICU team already. The patient is nonverbal, unresponsive. PHYSICAL EXAMINATION: VITAL SIGNS: Temperature 98.5, pulse 88, respirations 13, oxygen saturation is 100%. LABORATORY DATA: Labs reviewed. ASSESSMENT AND PLAN: Currently, the patient is not able to feed because of the pneumoperitoneum. Overall prognosis is very poor. Discussed with intensive care unit team. We will discuss with the family regarding the advanced directive. Tyson Chavez MD
--- NOTE | 2018-05-26 08:59 | DS ---
HISTORY OF PRESENT ILLNESS: This was an 82-year-old female, a residential resident, with a history of dementia, hypertension, seizure disorder, and hyperlipidemia. The patient was admitted to the hospital because she was not eating well for at least 3 weeks, getting more and more lethargic with significant weight loss. Upon hospitalization, the patient was noted to have severe anorexia and severe malnourishment. HOSPITAL COURSE: Immediately following the hospitalization, GI evaluation was called in. Because of the poor oral intake and associated dehydration, it was decided to have PEG tube feeding. The patient initially was started on NG tube feeding and IV fluid. The patient's medical condition stabilized and the patient underwent surgical intervention, PEG tube placement on 03/12/2018, but following the procedure, the patient started on G-tube feeding, but the patient started having problems with retention of gastric contents and also started having vomiting and worsening upper gastrointestinal, slowing of bowel movements. Following that, the patient became more lethargic. As the condition got worse with the oxygen saturation was also lowering, GARNISHER was called. Rapid response was called on 03/15/2018. The patient was then transferred to ICU. Sepsis was called. The patient was started on intravenous antibiotics. The patient was brought to the intensive care unit. During the stay in the intensive care unit, the patient's medical condition slowly got worse, she developed multiorgan failure with sepsis, hypotension. Overall prognosis got worse. Palliative Care was consulted. Family was initially not deciding any DNR. On 03/21/2018, around 4:00 a.m., the patient sustained a cardiac arrest, following that unsuccessful resuscitation and the patient was pronounced at 4:56 on 03/21/2018. Family was informed. FINAL DIAGNOSES: 1. Multiorgan failure. 2. Sepsis. 3. Malnourishment. 4. Advanced dementia. 5. Hypertension. 6. Hyperlipidemia. Tyson Chavez MD
== END 2018-03-21 04:56 | DRG 689 ==
LOC: C.ER 17:19 → C.9E 20:23 → C.3T 22:28 → C.5S 03-15 19:44 → C.9I 03-16 03:37
PROVIDERS: ADMIT Internal Medicine; ATTEND Internal Medicine
PROC: 0DH68UZ Insertion of Feeding Device into Stomach, Via Natural or Artificial Opening Endoscopic (ICD-10-PCS; principal; 2018-03-12 11:30)
PROC: 3E0G76Z Introduction of Nutritional Substance into Upper GI, Via Natural or Artificial Opening (ICD-10-PCS; 2018-03-13)
DX: N39.0 Urinary tract infection, site not specified (principal); I26.99 Other pulmonary embolism without acute cor pulmonale; T80.211A Bloodstream infection due to central venous catheter, initial encounter; B37.7 Candidal sepsis; R65.20 Severe sepsis without septic shock; E43 Unspecified severe protein-calorie malnutrition; E87.0 Hyperosmolality and hypernatremia; E46 Unspecified protein-calorie malnutrition; R47.01 Aphasia; E87.2 Acidosis; K92.1 Melena; J95.812 Postprocedural air leak; E86.0 Dehydration; E87.6 Hypokalemia; F03.90 Unspecified dementia, unspecified severity, without behavioral disturbance, psychotic disturbance, mood disturbance, and anxiety; H40.9 Unspecified glaucoma; I10 Essential (primary) hypertension; E78.5 Hyperlipidemia, unspecified; G40.909 Epilepsy, unspecified, not intractable, without status epilepticus; R62.7 Adult failure to thrive; K80.20 Calculus of gallbladder without cholecystitis without obstruction; E77.8 Other disorders of glycoprotein metabolism; M62.50 Muscle wasting and atrophy, not elsewhere classified, unspecified site; R13.10 Dysphagia, unspecified; D50.0 Iron deficiency anemia secondary to blood loss (chronic); Y83.3 Surgical operation with formation of external stoma as the cause of abnormal reaction of the patient, or of later complication, without mention of misadventure at the time of the procedure